=== PATIENT | male | born 1980 | race American Indian/Alaskan Native ===

== ENCOUNTER 2017-11-08 06:13 | Day surgery (SDC) | payer MEDICARE, MEDICAID ==
[2017-11-08 07:48] VITALS: O2SAT 100
[2017-11-08] MEDS ORDERED: Lactated Ringer's 1,000 ML IV ONE ×2 (09:30)
--- NOTE | 2017-11-08 09:30 | CP.SDSHP ---
Same Day Surgery H & P - History Proposed Procedure: EGD/PEG Pre-Op Diagnosis: PEG MALFUNCTION - Previous Medical/Surgical History Pulmonary: Emphysema/COPD Endocrine/Metabolic: Diabetes Neuro: Seizure Disorder, Confusion, Other Misc: Other - Allergies Allergies: Allergies No Known Allergies Allergy (Verified 11/07/17 07:20) - Physical Exam General Appearance: SEE NOTES Vital Signs: Vital Signs 11/08/17 06:30 Temperature 97.3 F L Pulse Rate 59 L Respiratory 19 Rate Blood Pressure 96/60 L O2 Sat by Pulse 100 Oximetry Mental Status: Confused Neuro: Other Heart: Other Lungs: Other GI: Other - {Optional Preform as Required} Breast: WNL Abdomen: Other Rectal: Other Integument: Other : WNL Ortho: WNL ENT: WNL - Impression Pt. Evaluated Today:Candidate for Anesthesia & Procedure: Yes - Date & Time Time: 09:33 Short Stay Discharge - Short Stay Discharge Admitting Diagnosis/Reason for Visit: PEG MALFUNCTION Disposition: HOME/ ROUTINE
[2017-11-08] MEDS ORDERED: Etomidate 20 mg/10ml Inj IV ONE (09:41)
[2017-11-08] MEDS ORDERED: Bacitracin 500 Units/gm Oint Foilpak UD ONE (09:47)
[2017-11-08] MEDS ORDERED: Lactated Ringer's 500 ML IV SCH (10:00)
[2017-11-08 11:04] VITALS: TEMP 97.4
[2017-11-08 11:10] VITALS: BP 106/70; PULSE 56; RESP 11
== END 2017-11-08 10:40 | disposition home or self-care (01) ==
LOC: C.ENDO 06:13
PROVIDERS: ATTEND Specialist
DX: K94.23 Gastrostomy malfunction (principal); R13.19 Other dysphagia; K21.0 Gastro-esophageal reflux disease with esophagitis; K44.9 Diaphragmatic hernia without obstruction or gangrene; G80.9 Cerebral palsy, unspecified; G40.909 Epilepsy, unspecified, not intractable, without status epilepticus
CPT/HCPCS: 43246; 82948; 88300; J7120

== ENCOUNTER 2018-01-24 06:43 | Day surgery (SDC) | payer MEDICARE, MEDICAID ==
[2018-01-24] MEDS ORDERED: Propofol 10 mg/ml Inj (20 ML) ONE (08:34)
--- NOTE | 2018-01-24 08:36 | CP.SDSHP ---
Same Day Surgery H & P - History Proposed Procedure: egd/ peg placement Pre-Op Diagnosis: SEE NOTES - Previous Medical/Surgical History Pulmonary: Asthma Neuro: Seizure Disorder, Paresis, Other Misc: Other Pain: 2.Mild Pain - Allergies Allergies: Allergies No Known Allergies Allergy (Verified 01/24/18 06:58) - Physical Exam General Appearance: PARAPLAGIA Vital Signs: Vital Signs 01/24/18 07:46 Temperature 97.4 F L Pulse Rate 79 Respiratory 19 Rate Blood Pressure 93/58 L O2 Sat by Pulse 97 Oximetry Neuro: Other Heart: Other Lungs: WNL GI: Other - {Optional Preform as Required} Breast: WNL Abdomen: Other Rectal: Other Integument: WNL : Other Ortho: WNL ENT: Other - Impression Pt. Evaluated Today:Candidate for Anesthesia & Procedure: Yes - Date & Time Time: 08:36 Short Stay Discharge - Short Stay Discharge Admitting Diagnosis/Reason for Visit: DYSPEPSIA Disposition: HOME/ ROUTINE
[2018-01-24] MEDS ORDERED: Lactated Ringer's 1,000 ML IV ONE (08:40)
[2018-01-24] MEDS ORDERED: metroNIDAZOLE IV 500 mg/100 ml 500 MG/100 ML BAG IVPB STA (08:48)
[2018-01-24] MEDS ORDERED: Bacitracin 500 Units/gm Oint Foilpak UD ONE (08:50)
[2018-01-24 14:31] VITALS: RESP 14; O2SAT 100
[2018-01-24 14:42] VITALS: BP 96/55; PULSE 55; TEMP 97.8
== END 2018-01-24 10:00 | disposition home or self-care (01) ==
LOC: C.ENDO 06:43
PROVIDERS: ATTEND Specialist
DX: K94.23 Gastrostomy malfunction (principal); G40.909 Epilepsy, unspecified, not intractable, without status epilepticus; J45.909 Unspecified asthma, uncomplicated; R13.10 Dysphagia, unspecified; G82.20 Paraplegia, unspecified
CPT/HCPCS: 43246; 82948; 88300; J2704; J7120

== ENCOUNTER 2018-02-28 12:51 | Emergency (ER) | payer MEDICARE, MEDICAID ==
[2018-02-28 13:11] VITALS: PULSE 54; TEMP 98; O2SAT 100
--- NOTE | 2018-02-28 14:20 | C.PDOC ---
History Of Present Illness 37 y/o male brought to ED from [facility] via EMS sent by Dr. Ocampo for peg tube malfunction as per group home papers. Patient is able to move eyes but is non verbal. HPI limited secondary to patient's condition. Time Seen by Provider: 02/28/18 13:23 Chief Complaint (Nursing): Medical Clearance History Per: EMS, Other (group home) History/Exam Limitations: clinical condition Onset/Duration Of Symptoms: Days Current Symptoms Are (Timing): Still Present Past Medical History Reviewed: Historical Data, Nursing Documentation, Vital Signs Vital Signs: Last Vital Signs Temp 98 F 02/28/18 15:39 Pulse 54 L 02/28/18 15:39 Resp 12 02/28/18 15:39 BP 106/69 02/28/18 15:39 Pulse Ox 100 02/28/18 16:39 - Medical History PMH: Depression (PER CHART MOOD DISORDER DUE TO DX/CONDITION), Seizures Surgical History: Endoscopy Family History: States: No Known Family Hx - Social History Hx Alcohol Use: No Hx Substance Use: No Review Of Systems Review Of Systems: ROS cannot be obtained secondary to pt's inabilty to answer questions. Physical Exam - Physical Exam Appears: Non-toxic, Chronically Ill Skin: Warm, Dry, No Rash Head: Atraumatic, Normacephalic Oral Mucosa: Moist Chest: Symmetrical Cardiovascular: Rhythm Regular Respiratory: Normal Breath Sounds Gastrointestinal/Abdominal: Soft, No Tenderness, Other (peg tube to LUQ intact) Extremity: No Pedal Edema, Other (both upper and lower extremities contracted) ED Course And Treatment ECG: Interpreted By Me, Viewed By Me ECG Rhythm: Sinus Bradycardia Rate From EC (BPM) O2 Sat by Pulse Oximetry: 100 (RA) Pulse Ox Interpretation: Normal Progress Note: GI evaluated patient at bedside and replaced Peg tube without difficulty. Pt discharged to group home. Disposition - Disposition Disposition: TRANSF TO SNF Disposition Time: 16:38 Condition: STABLE Instructions: Percutaneous Endoscopic Gastrostomy (DC) Forms: [facility] (Wol[place]) - Clinical Impression Clinical Impression: PEG tube malfunction - PA / WEB DATABASE DEVELOPER / Resident Statement MD/DO has reviewed & agrees with the documentation as recorded. - Scribe Statement The provider has reviewed the documentation as recorded by the Radhaibalthea Lea All medical record entries made by the Scribe were at my direction and personally dictated by me. I have reviewed the chart and agree that the record accurately reflects my personal performance of the history, physical exam, medical decision making, and the department course for this patient. I have also personally directed, reviewed, and agree with the discharge instructions and disposition.
[2018-02-28] MEDS ORDERED: Bacitracin 500 Units/gm Oint Foilpak UD ONE (15:00)
--- NOTE | 2018-02-28 15:18 | PCM.PROC ---
Procedures Attestation:: I certify that I have explained the specified Operation(s) or Procedure(s), risks, benefits and reasonable alternatives to the Patient and/or other person responsible. The opportunity was given to ask questions and all questions answered - Feeding Tube Replacement Type of Tube: gastrostomy Insertion Site Prior to Procedure: clean Tube Used for Reinsertion: other [place] Tube Size (F): 20 Balloon Size (mis): 5 Verification of Placement: other Tube Secured by: tape/dressing Patient Tolerated Procedure: well Additional comments: PROCEDURE TYPE: PEG replacement. INDICATION: Nonfunctioning PEG tube. TOTAL PROCEDURE TIME: 10 minutes. COMPLICATIONS: None. PROCEDURE: Patient placed in the supine position. PEG site without signs of induration, bleeding, or exudate. Prior PEG tube removed without complication. 20French Replacement PEG tube inserted into PEG tract without complication. Balloon inflated to 5cc and tube and positioned with appropriate tension to stomach wall. 25cc of sterile water for flush irrigation administered with appropriate flush return confirming correct position. Bumper placed at 2cm with gauze dressing and bacitran at insertion site. The patient tolerated the procedure well without complications. PEG tube functioning to proceed with nutritional support and medication administration.
[2018-02-28 15:39] VITALS: BP 106/69; RESP 12
--- NOTE | 2018-03-01 16:50 | CARD ---
APPROVED REPORT Date of service: 02/28/2018 EKG Measurement Heart [id number] <Conclusion> Sinus bradycardia Otherwise normal ECG
== END 2018-02-28 17:01 ==
LOC: C.ER 12:51
DX: K94.23 Gastrostomy malfunction (principal)

== ENCOUNTER 2018-04-18 14:00 | Inpatient (IN) | payer MEDICARE, MEDICAID ==
[2018-04-18] MEDS ORDERED: Sodium Chloride 0.9% 1,000 ML IV ONE ×2 (14:30→16:39)
--- NOTE | 2018-04-18 14:51 | C.PDOC ---
History Of Present Illness Patient sent to ED from GI office for PEG tube change. Patient has PMhx of respiratory failure, seizure disorder, MS, DM II, aphasia, dysphagia, obstructive uropathy. He is nonverbal, history is limited. Time Seen by Provider: 04/18/18 14:10 Chief Complaint (Nursing): GI Problem History Per: Other ([facility] records ) History/Exam Limitations: clinical condition Onset/Duration Of Symptoms: Unknown Severity: Moderate Past Medical History Reviewed: Historical Data, Nursing Documentation, Vital Signs Vital Signs: Last Vital Signs Temp 102.4 F H 04/18/18 14:04 Pulse 131 H 04/18/18 14:04 Resp 19 04/18/18 14:04 BP 125/86 04/18/18 14:04 Pulse Ox 99 04/18/18 14:04 - Medical History PMH: Depression (PER CHART MOOD DISORDER DUE TO DX/CONDITION), Diabetes, Seizures Denies: Chronic Kidney Disease Surgical History: Endoscopy Other Surgeries: PEG Family History: States: Unknown Family Hx - Social History Hx Alcohol Use: No Hx Substance Use: No Review Of Systems Review Of Systems: ROS cannot be obtained secondary to pt's inabilty to answer questions. Physical Exam - Physical Exam Appears: Chronically Ill, Other (tachycpnEic, warm to touch ) Eye(s): bilateral: Normal Inspection Oral Mucosa: Dry Tongue: Fissured Cardiovascular: Rhythm Regular (tachycardic ) Respiratory: Normal Breath Sounds, No Rales, No Rhonchi, No Wheezing, Other (tachypneic ) Gastrointestinal/Abdominal: Normal Exam, Bowel Sounds, Soft, No Tenderness, Other (PEG tube) Male Genital: Other (hypospadius entire length of penis) Extremity: Other (contracted upper and lower extremities B/L) Pulses: Left Dorsalis Pedis: Normal, Right Dorsalis Pedis: Normal Neurological/Psych: Other (awake, nonverbal, lethargic appearing ) ED Course And Treatment - Laboratory Results Result Diagrams: 04/18/18 15:09 04/18/18 15:09 O2 Sat by Pulse Oximetry: 99 Progress Note: Left upper chest portacath present, however nurse unable to draw blood from it. Patient has contracted B/L upper and lower extremities. 20 Gauge IV inserted into left lower leg by me, patient tolerated well. Blood work, UA, CXR, EKG ordered and reviewed. Tylenol TN given, as well as IV NS bolus x2. Broad spectrum antibiotics given. Disposition - Disposition Forms: [employer] ([place])
[2018-04-18 15:12] LABS: BASO # 0.1 K/uL (0.0-0.2); BASO % 0.3 % (0.0-2.0); EOS # 0.1 K/uL (0.0-0.7); EOS % 0.7 % (0.0-4.0); HEMOGLOBIN 13.9 g/dL (12.0-18.0); LYMPH # 1.2 K/uL (1.0-4.3); LYMPH % 5.9 % (20.0-40.0); MEAN CELL VOLUME 80.6 fL (80.0-94.0); MEAN CORPUSCULAR HEMOGLOBIN 26.6 pg (27.0-31.0); MEAN PLATELET VOLUME 11.1 fL (7.2-11.7); MONO # 1.4 K/uL (0.0-0.8); MONO % 7.2 % (0.0-10.0); NEUT # 17.1 K/uL (1.8-7.0); NEUT % 85.9 % (50.0-75.0); PLATELET COUNT 198 K/uL (130-400); WHITE BLOOD COUNT 19.9 K/uL (4.8-10.8)
[2018-04-18 15:20] LABS: VENOUS BLOOD GAS BASE EXCESS 4.8 mmol/L (0.0-2.0); VENOUS BLOOD GAS PCO2 48 mmHg (40-60); VENOUS BLOOD GAS PO2 53 mm/Hg (30-55); VENOUS BLOOD PH 7.41 (7.32-7.43)
[2018-04-18 15:32] LABS: ALBUMIN 4.4 g/dL (3.5-5.0); ALT/SGPT 32 U/L (21-72); AST/SGOT 24 U/L (17-59); BLOOD UREA NITROGEN 29 mg/dL (9-20); CALCIUM 9.5 mg/dl (8.6-10.4); GFR NON-AFRICAN AMERICAN > 60
[2018-04-18 15:35] LABS: EOSINOPHIL 1 % (0-4); LYMPHOCYTE 3 % (20-40); MONOCYTE 7 % (0-10); NEUTROPHIL 89 % (50-75); TOTAL CELLS COUNTED 100
[2018-04-18 15:37] LABS: PLATELET ESTIMATE NORMAL (NORMAL)
[2018-04-18 15:57] LABS: SQUAMOUS EPITHIAL < 1 /hpf (0-5); URINE BACTERIA FEW (<OCC); URINE BILIRUBIN NEGATIVE (NEGATIVE); URINE BLOOD 1+ (NEGATIVE); URINE CLARITY Hazy (Clear); URINE COLOR Yellow (YELLOW); URINE GLUCOSE (UA) NORMAL (Normal); URINE LEUKOCYTE ESTERASE 3+ Leu/uL (Negative); URINE PROTEIN 2+ mg/dL (NEGATIVE)
[2018-04-18] MEDS ORDERED: Moxifloxacin IV 400mg/250ml NS 400 MG/250 ML BAG IV STA (15:59)
[2018-04-18] MEDS ORDERED: Vancomycin 1 GM 1 GM/250 ML BAG IV STA (15:59)
[2018-04-18] MEDS ORDERED: Cefepime 1 GM in Sodium Chloride 0.9% 50 ML IVPB ONE (15:59)
--- NOTE | 2018-04-18 16:02 | RAD ---
HISTORY: FEVER COMPARISON: No prior. TECHNIQUE: Chest, one view. FINDINGS: Examination limited by habitus, hypoinflation, and patient obliquity. Left-sided MediPort extends the cavoatrial junction. LUNGS: Central vascular congestion. Please note that chest x-ray has limited sensitivity for the detection of pulmonary masses. PLEURA: No significant pleural effusion identified. No definite pneumothorax . CARDIOVASCULAR: Heart size appears top normal, partially obscured. No significant atherosclerotic calcification present. OSSEOUS STRUCTURES: Degenerative changes. VISUALIZED UPPER ABDOMEN: Unremarkable. OTHER FINDINGS: None. IMPRESSION: Limited study. Left-sided MediPort extends to the cavoatrial junction. Central vascular congestion.
[2018-04-18] MEDS ORDERED: Sodium Chloride 0.9% 2,000 ML ONE (16:43)
[2018-04-18] MEDS ORDERED: Albuterol-Ipratrop 3 mg / 0.5 (3 ml) UD IH PRN (17:11)
--- NOTE | 2018-04-18 17:12 | CP.PCM.HP ---
<Isabelle Iverson - Last Filed: 04/18/18 17:15> History of Present Illness - History of Present Illness History of Present Illness: Isabelle Iverson PGY1 H&P for Dr. Angeles Pt is a 37yo M with PMH respiratory failure, seizure disorder, MS, DM2, aphasia, dysphagia, obstructive uropothy who is aphasic, brought from [facility] to ED for PEG tube replacement. According to [facility] records, pt was examined by Dr. Borjas who found foul smelling liquid draining from G tube site. There, pt was given handley to temporarily replace the tube. Dr. Borjas recommended ED visit for PEG tube replacement. Pt had last PEG tube changed on 02/28/[address] De La Fuente. Pt was examined at bedside. He was sleeping, contracted, and unable to give history at that time. ROS was not obtained. In the ED: Vitals were stable. CBC showed WBC count of 19.9. UA showed +3 leukocyte esterase, +nitrates, 231 WBC, few bacteria. Pt was started on Cefepime, Moxi, and Vanco. SxH: endoscopy FamH: not able to obtain SocH: no reported tobacco, etoh, recreational drug use Allergies: NKDA Meds: keppra 100 BID, omeprazole 2 daily, ativan 0.5 q12h PRN, vimpat 200 q12h, fentanyl 1 TD q2d, eliquis 5 BID, duonebs 1 IH q6h PRN, tylenol PMD: Dr. Borjas Present on Admission - Present on Admission Any Indicators Present on Admission: No Review of Systems - Review of Systems Review of Systems: not obtainable at this time Past Patient History - Past Medical History & Family History Past Medical History?: Yes - Past Social History Smoking Status: Unknown If Ever Smoked - CARDIAC Hx Cardiac Disorders: No - PULMONARY Hx Respiratory Disorders: Yes Other/Comment: HX RESPIRATORY FAILURE HX TRACH - NEUROLOGICAL Hx Seizures: Yes - HEENT Hx HEENT Problems: No - RENAL Hx Chronic Kidney Disease: No - ENDOCRINE/METABOLIC Hx Endocrine Disorders: Yes Hx Diabetes Mellitus Type 2: Yes - HEMATOLOGICAL/ONCOLOGICAL Hx Blood Disorders: No - INTEGUMENTARY Hx Dermatological Problems: Yes Other/Comment: PRESSURE ULCERS - MUSCULOSKELETAL/RHEUMATOLOGICAL Hx Musculoskeletal Disorders: Yes Other/Comment: CONTRACTED - GASTROINTESTINAL Hx Gastrointestinal Disorders: Yes Hx Gastroesophageal Reflux: Yes Other/Comment: DYSPHAGIA PEG - GENITOURINARY/GYNECOLOGICAL Hx Genitourinary Disorders: No - PSYCHIATRIC Hx Depression: Yes (PER CHART MOOD DISORDER DUE TO DX/CONDITION) Hx Substance Use: No - SURGICAL HISTORY Hx Surgeries: Yes Other/Comment: PEG TUBE INSERTION, TRACHEOSTOMY - ANESTHESIA Hx Anesthesia: Yes Hx Anesthesia Reactions: No Hx Malignant Hyperthermia: No Meds Allergies/Adverse Reactions: Allergies Allergy/AdvReac Type Severity Reaction Status Date / Time No Known Allergies Allergy Verified 01/24/18 06:58 Physical Exam - Constitutional Appears: Chronically Ill Additional comments: contracted, sleeping - Head Exam Head Exam: ATRAUMATIC, NORMOCEPHALIC - ENT Exam ENT Exam: Mucous Membranes Moist, Normal Exam - Neck Exam Neck exam: Positive for: Normal Inspection - Respiratory Exam Respiratory Exam: Clear to Auscultation Bilateral, NORMAL BREATHING PATTERN. absent: Rales, Rhonchi, Wheezes, Respiratory Distress - Cardiovascular Exam Cardiovascular Exam: REGULAR RHYTHM, +S1, +S2. absent: Gallop, Rubs, Systolic Murmur - GI/Abdominal Exam GI & Abdominal Exam: Soft. absent: Distended, Firm Additional comments: unable to assess tenderness GT site with handley clean, dry, intact - Exam Additional comments: hypophysis from medial to distal penis - Extremities Exam Extremities exam: Negative for: pedal edema Additional comments: pressure ulcer on R heel, no bleeding or obvious drainage pressure ulcer with dressing on L heel, clean, dry, intact - Neurological Exam Additional comments: aphasic, asleep Results - Vital Signs Recent Vital Signs: Last Vital Signs Temp 99.0 F 04/18/18 16:52 Pulse 91 H 04/18/18 16:52 Resp 18 04/18/18 16:52 BP 95/55 L 04/18/18 16:52 Pulse Ox 100 04/18/18 16:52 - Labs Result Diagrams: 04/18/18 15:09 04/18/18 15:09 Labs: Laboratory Results - last 24 hr 04/18/18 04/18/18 04/18/18 15:09 15:09 15:15 WBC 19.9 H RBC 5.20 Hgb 13.9 Hct 41.9 MCV 80.6 MCH 26.6 L MCHC 33.0 RDW 15.0 H Plt Count 198 MPV 11.1 Neut % (Auto) 85.9 H Lymph % (Auto) 5.9 L Ponce % (Auto) 7.2 Eos % (Auto) 0.7 Baso % (Auto) 0.3 Neut # (Auto) 17.1 H Lymph # (Auto) 1.2 Ponce # (Auto) 1.4 H Eos # (Auto) 0.1 Baso # (Auto) 0.1 Neutrophils % (Manual) 89 H Lymphocytes % (Manual) 3 L Monocytes % (Manual) 7 Eosinophils % (Manual) 1 Platelet Estimate Normal RBC Morphology Normal pO2 53 VBG pH 7.41 VBG pCO2 48 VBG HCO3 28.4 VBG Total CO2 31.9 H VBG O2 Sat (Calc) 92.5 H VBG Base Excess 4.8 H VBG Potassium 3.5 L Glucose 116 H Lactate 0.9 FiO2 21.0 Sodium 145 143.0 Potassium 4.0 Chloride 103 108.0 H Carbon Dioxide 29 Anion Gap 17 BUN 29 H Creatinine 0.6 L Est GFR ( Amer) > 60 Est GFR (Non-Af Amer) > 60 Random Glucose 126 H Calcium 9.5 Total Bilirubin 0.7 AST 24 ALT 32 Alkaline Phosphatase 152 H Total Protein 8.6 H Albumin 4.4 Globulin 4.2 H Albumin/Globulin Ratio 1.0 Venous Blood Potassium 3.5 L Urine Color Urine Clarity Urine pH Ur Specific [place] Urine Protein Urine Glucose (UA) Urine Ketones Urine Blood Urine Nitrate Urine Bilirubin Urine Urobilinogen Ur Leukocyte Esterase Urine WBC (Auto) Urine RBC (Auto) Ur Squamous Epith Cells Urine Bacteria Urine Yeast (Budding) Influenza Typ A,B (EIA) 04/18/18 04/18/18 15:27 15:45 WBC RBC Hgb Hct MCV MCH MCHC RDW Plt Count MPV Neut % (Auto) Lymph % (Auto) Ponce % (Auto) Eos % (Auto) Baso % (Auto) Neut # (Auto) Lymph # (Auto) Ponce # (Auto) Eos # (Auto) Baso # (Auto) Neutrophils % (Manual) Lymphocytes % (Manual) Monocytes % (Manual) Eosinophils % (Manual) Platelet Estimate RBC Morphology pO2 VBG pH VBG pCO2 VBG HCO3 VBG Total CO2 VBG O2 Sat (Calc) VBG Base Excess VBG Potassium Glucose Lactate FiO2 Sodium Potassium Chloride Carbon Dioxide Anion Gap BUN Creatinine Est GFR ( Amer) Est GFR (Non-Af Amer) Random Glucose Calcium Total Bilirubin AST ALT Alkaline Phosphatase Total Protein Albumin Globulin Albumin/Globulin Ratio Venous Blood Potassium Urine Color Yellow Urine Clarity Hazy Urine pH 7.0 Ur Specific [place] 1.021 Urine Protein 2+ H Urine Glucose (UA) Normal Urine Ketones Negative Urine Blood 1+ H Urine Nitrate Positive H Urine Bilirubin Negative Urine Urobilinogen 4.0 Ur Leukocyte Esterase 3+ H Urine WBC (Auto) 231 H Urine RBC (Auto) 29 H Ur Squamous Epith Cells < 1 Urine Bacteria Few H Urine Yeast (Budding) Few H Influenza Typ A,B (EIA) Negative for flu a/b Assessment & Plan - Assessment and Plan (Free Text) Assessment: Pt is a 37yo M with PMH respiratory failure, seizure disorder, MS, DM2, aphasia, dysphagia, obstructive uropothy who is aphasic, brought from [facility] to ED for PEG tube replacement, admitted for further evaluation and treatment of leukocy tosis and PEG tube replacement. Plan: Leukocytosis/SIRS - pt afebrile - WBC 19.9 - CXR: no active disease - likely secondary to GT site infection vs. pressure ulcer soft tissue infection - UA +3 leukocyte esterase, +nitrates, 231 WBC, few bacteria - received Vanco, moxi, and cefepime in ED - start zosyn 3.375 IV q6h - continue vanco 1g IV daily - tylenol PRN - f/u vanc trough on 4th dose - f/u BCx, UCx - PICC access ordered PEG tube - pt with last PEG tube change 02/28/18 - currently with handley in site - meds IV currently - resume elequis - tube flushed qid - NPO - D5 LR 1000ml @ 100 cc/hr - GI consulted, Dr. De La Fuente - f/u recs for replacement Pressure Ulcers - stage IV pressure ulcer on LLE, RLE - start zosyn 3.375 IV q6h - continue vanco 1g IV daily - turn and reposition q2h - wound care consulted Seizure Disorder - start home keppra - start home vimpat DM2 - D5 LR 1000ml @ 100cc/hr - hypoglycemia protocol H/o respiratory distress - duonebs q6h PRN MS/dysphagia/aphasia - pt has poor quality of life as he is bedbound, non expressive - as per senior care documentation pt is full code - will discuss goals of care with family - Palliative care consulted - f/u recs PPx: GI - protonix 40 IV daily DVT - on eliquis, SCDs contraindicated due to LE wounds NPO - meds to be administered IV/through Gtube Pt seen with and case reviewed with Dr. Angeles <Candy Angeles - Last Filed: 04/18/18 18:16> Results - Vital Signs Recent Vital Signs: Last Vital Signs Temp 99.0 F 04/18/18 16:52 Pulse 96 H 04/18/18 17:10 Resp 14 04/18/18 17:10 BP 101/60 04/18/18 17:10 Pulse Ox 100 04/18/18 17:10 - Labs Result Diagrams: 04/18/18 15:09 04/18/18 15:09 Labs: Laboratory Results - last 24 hr 04/18/18 04/18/18 04/18/18 15:09 15:09 15:15 WBC 19.9 H RBC 5.20 Hgb 13.9 Hct 41.9 MCV 80.6 MCH 26.6 L MCHC 33.0 RDW 15.0 H Plt Count 198 MPV 11.1 Neut % (Auto) 85.9 H Lymph % (Auto) 5.9 L Ponce % (Auto) 7.2 Eos % (Auto) 0.7 Baso % (Auto) 0.3 Neut # (Auto) 17.1 H Lymph # (Auto) 1.2 Ponce # (Auto) 1.4 H Eos # (Auto) 0.1 Baso # (Auto) 0.1 Neutrophils % (Manual) 89 H Lymphocytes % (Manual) 3 L Monocytes % (Manual) 7 Eosinophils % (Manual) 1 Platelet Estimate Normal RBC Morphology Normal pO2 53 VBG pH 7.41 VBG pCO2 48 VBG HCO3 28.4 VBG Total CO2 31.9 H VBG O2 Sat (Calc) 92.5 H VBG Base Excess 4.8 H VBG Potassium 3.5 L Glucose 116 H Lactate 0.9 FiO2 21.0 Sodium 145 143.0 Potassium 4.0 Chloride 103 108.0 H Carbon Dioxide 29 Anion Gap 17 BUN 29 H Creatinine 0.6 L Est GFR ( Amer) > 60 Est GFR (Non-Af Amer) > 60 Random Glucose 126 H Calcium 9.5 Total Bilirubin 0.7 AST 24 ALT 32 Alkaline Phosphatase 152 H Total Protein 8.6 H Albumin 4.4 Globulin 4.2 H Albumin/Globulin Ratio 1.0 Venous Blood Potassium 3.5 L Urine Color Urine Clarity Urine pH Ur Specific [place] Urine Protein Urine Glucose (UA) Urine Ketones Urine Blood Urine Nitrate Urine Bilirubin Urine Urobilinogen Ur Leukocyte Esterase Urine WBC (Auto) Urine RBC (Auto) Ur Squamous Epith Cells Urine Bacteria Urine Yeast (Budding) Influenza Typ A,B (EIA) 04/18/18 04/18/18 15:27 15:45 WBC RBC Hgb Hct MCV MCH MCHC RDW Plt Count MPV Neut % (Auto) Lymph % (Auto) Ponce % (Auto) Eos % (Auto) Baso % (Auto) Neut # (Auto) Lymph # (Auto) Ponce # (Auto) Eos # (Auto) Baso # (Auto) Neutrophils % (Manual) Lymphocytes % (Manual) Monocytes % (Manual) Eosinophils % (Manual) Platelet Estimate RBC Morphology pO2 VBG pH VBG pCO2 VBG HCO3 VBG Total CO2 VBG O2 Sat (Calc) VBG Base Excess VBG Potassium Glucose Lactate FiO2 Sodium Potassium Chloride Carbon Dioxide Anion Gap BUN Creatinine Est GFR ( Amer) Est GFR (Non-Af Amer) Random Glucose Calcium Total Bilirubin AST ALT Alkaline Phosphatase Total Protein Albumin Globulin Albumin/Globulin Ratio Venous Blood Potassium Urine Color Yellow Urine Clarity Hazy Urine pH 7.0 Ur Specific [place] 1.021 Urine Protein 2+ H Urine Glucose (UA) Normal Urine Ketones Negative Urine Blood 1+ H Urine Nitrate Positive H Urine Bilirubin Negative Urine Urobilinogen 4.0 Ur Leukocyte Esterase 3+ H Urine WBC (Auto) 231 H Urine RBC (Auto) 29 H Ur Squamous Epith Cells < 1 Urine Bacteria Few H Urine Yeast (Budding) Few H Influenza Typ A,B (EIA) Negative for flu a/b
[2018-04-18] MEDS ORDERED: Home Med 1 UNIT (Fentanyl [Fentanyl] 1 EACH) TD SCH (17:15)
[2018-04-18] MEDS ORDERED: Lactated Ringer's 1,000 ML IV SCH (17:15)
[2018-04-18] MEDS ORDERED: Dextrose 50% SYRINGE Inj (50 ml) IV PRN (17:46)
[2018-04-18] MEDS ORDERED: levETIRAcetam 100 mg/ml (5ml) Oral Syringe PO SCH (18:00)
[2018-04-18] MEDS ORDERED: Glucagon Recombinant 1 mg Inj IM PRN (18:27)
[2018-04-18] MEDS: Dextrose 5%/Lactated Ringer's 1,000 ML IV SCH (18:50)
[2018-04-18] MEDS: Piperacill/Tazo 3.375gm in Dex 3.375 GM/50 ML BAG IVPB SCH (20:00)
[2018-04-18] MEDS ORDERED: Lacosamide 100 MG Tab PO SCH (22:00)
[2018-04-19] MEDS: Piperacill/Tazo 3.375gm in Dex 3.375 GM/50 ML BAG IVPB SCH ×4 (01:30→20:00)
[2018-04-19] MEDS: Dextrose 5%/Lactated Ringer's 1,000 ML IV SCH ×2 (03:45→06:09)
[2018-04-19] MEDS: Vancomycin 1 gm/NS 200 ml 1 GM/200 ML BAG IVPB SCH (04:10)
[2018-04-19 06:49] LABS: BASO # 0.1 K/uL (0.0-0.2); BASO % 0.5 % (0.0-2.0); EOS # 0.5 K/uL (0.0-0.7); EOS % 2.9 % (0.0-4.0); HEMOGLOBIN 12.2 g/dL (12.0-18.0); LYMPH % 5.7 % (20.0-40.0); MEAN CELL VOLUME 81.3 fL (80.0-94.0); MEAN CORPUSCULAR HEMOGLOBIN 26.8 pg (27.0-31.0); MEAN CORPUSCULAR HGB CONC 32.9 g/dL (33.0-37.0); MONO % 5.9 % (0.0-10.0); NEUT # 15.1 K/uL (1.8-7.0); NRBC % 0.1 % (0.0-2.0); PLATELET COUNT 155 K/uL (130-400); RBC 4.56 Mil/uL (4.40-5.90); WHITE BLOOD COUNT 17.8 K/uL (4.8-10.8)
[2018-04-19 07:10] LABS: ALB/GLOB RATIO 1.1 (1.0-2.1); ALBUMIN 3.8 g/dL (3.5-5.0); ALT/SGPT 27 U/L (21-72); AST/SGOT 16 U/L (17-59); BLOOD UREA NITROGEN 20 mg/dL (9-20); CALCIUM 9.1 mg/dl (8.6-10.4); GFR NON-AFRICAN AMERICAN > 60
[2018-04-19 08:41] LABS: BASOPHIL 1 % (0-2); EOSINOPHIL 3 % (0-4); LYMPHOCYTE 4 % (20-40); MONOCYTE 5 % (0-10); NEUTROPHIL 87 % (50-75); PLATELET ESTIMATE NORMAL (NORMAL); TOTAL CELLS COUNTED 100
--- NOTE | 2018-04-19 09:12 | CP.PCM.PN ---
<Renan Perez - Last Filed: 04/19/18 18:03> Subjective - Date & Time of Evaluation Date of Evaluation: 04/19/18 Time of Evaluation: 09:12 - Subjective Subjective: Progress Note for Hospitalist service Patient seen and examined at bedside. Patient is unable to provide history, and is lying in bed with contracted upper extremities. Patient occasionally groans, eyes are open. Family not present at bedside. Objective - Vital Signs/Intake and Output Vital Signs (last 24 hours): Temp Pulse Resp BP Pulse Ox 99.3 F 95 H 18 102/72 100 04/19/18 07:00 04/19/18 08:32 04/19/18 07:00 04/19/18 07:00 04/19/18 07:00 Intake and Output: 04/19/18 04/19/18 06:59 18:59 Intake Total 800 Output Total 450 Balance 350 - Medications Medications: Current Medications Acetaminophen (Tylenol 325mg Tab) 325 mg GT PRN [facility] Albuterol/Ipratropium (Duoneb 3 Mg/0.5 Mg (3 Ml) Ud) 3 ml IH RQ6 PRN PRN Reason: Shortness of Breath Apixaban (Eliquis) 5 mg GT BID [facility] Dextrose (Dextrose 50% Inj) 0 ml IV STAT PRN; Protocol PRN Reason: Hypoglycemia Protocol Dextrose (Glutose 15) 0 gm PO ONCE PRN; Protocol PRN Reason: Hypoglycemia Protocol Glucagon (Glucagen Diagnostic Kit) 0 mg IM STAT PRN; Protocol PRN Reason: Hypoglycemia Protocol Home Med (Fentanyl [Fentanyl]) 1 each TD Q2D [facility] Piperacillin Sod/Tazobactam Sod (Zosyn 3.375 Gm Iv Premix) 3.375 gm in 50 mls @ 100 mls/hr IVPB Q6H [facility]; Protocol Last Admin: 04/19/18 06:05 Dose: 100 mls/hr Vancomycin/Sodium Chloride (Vancomycin 1 Gm/Ns 200 Ml) 1 gm in 200 mls @ 133.333 mls/hr IVPB Q24H [facility]; Protocol Last Admin: 04/19/18 04:10 Dose: 133.333 mls/hr Dextrose/Lactated Ringer's (Dextrose 5%/Lactated Ringer's) 1,000 mls @ 100 mls/hr IV .Q10H [facility] Last Admin: 04/19/18 06:09 Dose: 100 mls/hr Dextrose (Dextrose 5% In Water 1000 Ml) 1,000 mls @ 0 mls/hr IV .Q0M PRN; Protocol PRN Reason: Hypoglycemia Protocol Influenza Virus Vaccine (Fluzone Quad [id number]) 60 mcg IM .ONCE ONE Stop: 04/20/18 10:01 Lacosamide (Vimpat) 200 mg PO Q12 [facility] Levetiracetam (Keppra) 1,000 mg PO BID [facility] Lorazepam (Ativan) 0.5 mg GT Q12 PRN PRN Reason: Seizure activity Pantoprazole Sodium (Protonix Inj) 40 mg IVP DAILY [facility] Pneumococcal Polyvalent Vaccine (Pneumovax 23 Vaccine) 0.5 ml IM .ONCE ONE Stop: 04/20/18 10:01 - Labs Labs: 04/19/18 06:41 04/19/18 06:41 - Constitutional Appears: Other (Eyes are open, groans intermittently, contracted upper extremities. ) - Head Exam Head Exam: ATRAUMATIC, NORMOCEPHALIC - Eye Exam Eye Exam: EOMI, PERRL - ENT Exam ENT Exam: Mucous Membranes Moist - Neck Exam Neck Exam: Full ROM - Respiratory Exam Respiratory Exam: Clear to Ausculation Bilateral. absent: Rales, Rhonchi, Wheezes, Stridor Additional comments: (+) palpable port on left chest - Cardiovascular Exam Cardiovascular Exam: REGULAR RHYTHM, +S1, +S2. absent: Gallop, Rubs, Murmur - GI/Abdominal Exam GI & Abdominal Exam: Soft, Normal Bowel Sounds. absent: Distended, Guarding, Rigid, Hernia Additional comments: left lower abdomen: G tube with handley tube in place. no evidence of infection at the site. Unable to assess tenderness, however patient does not wince or groan when abdomen is palpated - Exam Additional comments: Hypospadia handley in place - Extremities Exam Extremities Exam: absent: Calf Tenderness, Pedal Edema Additional comments: Pressure ulcer on right heel pressure ulcer with dressing on left heel - Back Exam Back Exam: absent: CVA tenderness (L), CVA tenderness (R) - Neurological Exam Additional comments: Unable to assess mental status since patient is aphasic, eyes are open, unable to answer questions Assessment and Plan - Assessment and Plan (Free Text) Plan: Assessment and plan Assessment 37 year old male with history of respiratory failure, seizure disorder, MS, Type 2 DM, aphasia, dysphagia, obstructive uropathy who presented from [facility] for peg tube replacement after patient was noted to have foul smelling drainage from site. Admitted for further evaluation and treatment of urinary tract infection with leukocytosis and PEG tube replacement. Plan Leukocytosis/SIRS Likely secondary to Urinary Tract infection Patient remains afebrile currently, was febrile on admission to 102.5 CXR: no active disease Patient received Vancomycin, Moxifloxacin and Cefepime in ED. IV Abx: Vancomycin 1g IV Q24 hours, Zosyn 3.375g IV Q6 Tylenol 650mg Q6 PRN for fevers Follow up blood cultures, urine cultures Urine culture preliminary finding GN rods Blood cultures prelim no growth Follow up vanco trough PEG Tube dysfunction Last Peg tube changed by Dr. De La Fuente on 02/28/18 Currently has handley tube in place. Tube to be flushed QID GI Dr. De La Fuente consulted, help appreciated PEG Tube changed 04/19/18, who recommended placement of abdominal binder, and stated new peg tube okay to be used for tube feeding, medication, free water flushes. Eliquis resumed To remain NPO D5LR 1L @ 100cc/hr IV Glucerna tube feeds resumed Pressure ulcers Stage IV pressure ulcer on LLE, RLE Zosyn 3.375g IV Q6 Day 2 Vancomycin 1g Q24 Day 2 Wound care consulted Turn and reposition every 2 hours Seizure disorder Keppra 1000mg BID Vimpat 200mg Q12 To be given by G tube Seizure precautions Aspiration precautions Type 2 DM D5 LR @ 100cc/hr IV Hypoglycemia protocol History of respiratory distress, currently stable Duonebs Q6 PRN History of MS/dysphagia/aphasia Poor quality of life, remains bedbound, nonexpressive Pallative care Janeth consulted As per note, scheduled to have family meeting today with patient's brother Murali Doss who is POA [phone] Spoke with patient's brother regarding goals of care, who stated that he wants to keep him full code. PPX: GI: Protonix 40mg IV DVT: On Eliquis, SCDs not indicated due to pressure ulcers NPO: medications to be administered through G tube Case discussed with Dr. Bridgette Perez, PGY1 <Candy Angeles - Last Filed: 04/20/18 15:36> Objective - Vital Signs/Intake and Output Vital Signs (last 24 hours): Temp Pulse Resp BP Pulse Ox 99.9 F H 97 H 20 106/73 100 04/20/18 07:10 04/20/18 07:10 04/20/18 07:10 04/20/18 07:10 04/20/18 07:10 Intake and Output: 04/20/18 04/20/18 06:59 18:59 Intake Total 1380 Output Total 800 Balance 580 - Medications Medications: Current Medications Acetaminophen (Tylenol 325mg Tab) 325 mg GT Q6 PRN PRN Reason: Fever >100.4 F Albuterol/Ipratropium (Duoneb 3 Mg/0.5 Mg (3 Ml) Ud) 3 ml IH RQ6 PRN PRN Reason: Shortness of Breath Apixaban (Eliquis) 5 mg GT BID [facility] Last Admin: 04/20/18 10:43 Dose: 5 mg Dextrose (Dextrose 50% Inj) 0 ml IV STAT PRN; Protocol PRN Reason: Hypoglycemia Protocol Dextrose (Glutose 15) 0 gm PO ONCE PRN; Protocol PRN Reason: Hypoglycemia Protocol Fentanyl (Duragesic) 1 patch TD Q72H [facility] Last Admin: 04/19/18 17:20 Dose: 1 patch Glucagon (Glucagen Diagnostic Kit) 0 mg IM STAT PRN; Protocol PRN Reason: Hypoglycemia Protocol Piperacillin Sod/Tazobactam Sod (Zosyn 3.375 Gm Iv Premix) 3.375 gm in 50 mls @ 100 mls/hr IVPB Q6H [facility]; Protocol Last Admin: 04/20/18 12:59 Dose: 100 mls/hr Dextrose (Dextrose 5% In Water 1000 Ml) 1,000 mls @ 0 mls/hr IV .Q0M PRN; Protocol PRN Reason: Hypoglycemia Protocol Insulin Human Regular (Novolin R) 0 unit SC ACHS [facility]; Protocol Lacosamide (Vimpat) 200 mg PO Q12 [facility] Last Admin: 04/20/18 10:43 Dose: 200 mg Lactobacillus Acidophilus (Bacid Acidophilus) 1 cap GT BID [facility] Levetiracetam (Keppra) 1,000 mg GT BID [facility] Last Admin: 04/20/18 10:43 Dose: 1,000 mg Lorazepam (Ativan) 0.5 mg GT Q12 PRN PRN Reason: Seizure activity Pantoprazole Sodium (Protonix Inj) 40 mg IVP DAILY [facility] Last Admin: 04/20/18 10:43 Dose: 40 mg Vitamin A (Vitamin A & D Oint Ud Foilpak) 0.5 ea TOP Q4 [facility] Last Admin: 04/20/18 11:24 Dose: 0.5 ea - Labs Labs: 04/20/18 05:54 04/20/18 05:54 Attending/Attestation - Attestation I have personally seen and examined this patient.: Yes I have fully participated in the care of the patient.: Yes I have reviewed all pertinent clinical information, including history, physical exam and plan: Yes Notes (Text): seen and examined by me. Patient is bed bound nonverbal and contracted limbs. Brought for peg change s/p peg change by gastro enterologist fever and leukocytosis UTI and had wounds continue roalndo and marco antonion. if blood cuture negative stop rolando Spoke to his brother. patient's mother is in the same NH with the pt He wants all treatment including resuscitation.
--- NOTE | 2018-04-19 09:26 | CP.PCM.CON ---
<ChantelljaydonPatrick aldana - Last Filed: 04/19/18 18:14> History of Present Illness - History of Present Illness History of Present Illness: PGY6 GI Fellow Consult Note Patient is a 37yo male with PMHx significant for advanced multiple sclerosis, seizure d/o, diabetes who is nonverbal at baseline who was referred to the ED from our outpatient office yesterday for PEG replacement. The patient has a hist ory of numerous inadvertent PEG dislodgement and presented to the office yesterday from [facility] for evaluation. Upon realizing that recently exchanged PEG (Feb [address] De La Fuente) was no longer present, we asked the patient to present to the ED for evaluation and replacement. On arrival to the ED, the patient was noted to be febrile with TMax 102F and tachycardia. U/A was abnormal and UTI is presumed source of infection for the patient presently. He was started on antibiotics and admitted to the hospital. We are consulted for PEG management. Unable to perform 12 system ROS given clinical condition PMHx: See HPI PSHx: None known FHx: Father - passed from unknown malignancy Social: No tobacco, EtOH or illicit drug use; AR patient Endo: Most recent EGD 12/2017 for PEG replacement Past Patient History - Past Medical History & Family History Past Medical History?: Yes - Past Social History Smoking Status: Unknown If Ever Smoked - CARDIAC Hx Cardiac Disorders: No - PULMONARY Hx Respiratory Disorders: Yes Other/Comment: HX RESPIRATORY FAILURE HX TRACH - NEUROLOGICAL Hx Neurological Disorder: Yes Hx Seizures: Yes - HEENT Hx HEENT Problems: No - RENAL Hx Chronic Kidney Disease: No - ENDOCRINE/METABOLIC Hx Endocrine Disorders: Yes Hx Diabetes Mellitus Type 2: Yes - HEMATOLOGICAL/ONCOLOGICAL Hx Blood Disorders: No - INTEGUMENTARY Hx Dermatological Problems: Yes Other/Comment: PRESSURE ULCERS - MUSCULOSKELETAL/RHEUMATOLOGICAL Hx Musculoskeletal Disorders: Yes Hx Falls: No Other/Comment: CONTRACTED - GASTROINTESTINAL Hx Gastrointestinal Disorders: Yes Hx Gastroesophageal Reflux: Yes Other/Comment: DYSPHAGIA PEG - GENITOURINARY/GYNECOLOGICAL Hx Genitourinary Disorders: No - PSYCHIATRIC Hx Depression: Yes (PER CHART MOOD DISORDER DUE TO DX/CONDITION) Hx Substance Use: No - SURGICAL HISTORY Hx Surgeries: Yes Other/Comment: PEG TUBE INSERTION, TRACHEOSTOMY - ANESTHESIA Hx Anesthesia: Yes Hx Anesthesia Reactions: No Hx Malignant Hyperthermia: No Meds Allergies/Adverse Reactions: Allergies Allergy/AdvReac Type Severity Reaction Status Date / Time No Known Allergies Allergy Verified 01/24/18 06:58 - Medications Medications: Current Medications Acetaminophen (Tylenol 325mg Tab) 325 mg GT PRN [facility] Albuterol/Ipratropium (Duoneb 3 Mg/0.5 Mg (3 Ml) Ud) 3 ml IH RQ6 PRN PRN Reason: Shortness of Breath Apixaban (Eliquis) 5 mg GT BID [facility] Dextrose (Dextrose 50% Inj) 0 ml IV STAT PRN; Protocol PRN Reason: Hypoglycemia Protocol Dextrose (Glutose 15) 0 gm PO ONCE PRN; Protocol PRN Reason: Hypoglycemia Protocol Glucagon (Glucagen Diagnostic Kit) 0 mg IM STAT PRN; Protocol PRN Reason: Hypoglycemia Protocol Home Med (Fentanyl [Fentanyl]) 1 each TD Q2D [facility] Piperacillin Sod/Tazobactam Sod (Zosyn 3.375 Gm Iv Premix) 3.375 gm in 50 mls @ 100 mls/hr IVPB Q6H [facility]; Protocol Last Admin: 04/19/18 06:05 Dose: 100 mls/hr Vancomycin/Sodium Chloride (Vancomycin 1 Gm/Ns 200 Ml) 1 gm in 200 mls @ 133.333 mls/hr IVPB Q24H [facility]; Protocol Last Admin: 04/19/18 04:10 Dose: 133.333 mls/hr Dextrose/Lactated Ringer's (Dextrose 5%/Lactated Ringer's) 1,000 mls @ 100 mls/hr IV .Q10H [facility] Last Admin: 04/19/18 06:09 Dose: 100 mls/hr Dextrose (Dextrose 5% In Water 1000 Ml) 1,000 mls @ 0 mls/hr IV .Q0M PRN; Protocol PRN Reason: Hypoglycemia Protocol Influenza Virus Vaccine (Fluzone Quad [id number]) 60 mcg IM .ONCE ONE Stop: 04/20/18 10:01 Lacosamide (Vimpat) 200 mg PO Q12 [facility] Levetiracetam (Keppra) 1,000 mg PO BID [facility] Lorazepam (Ativan) 0.5 mg GT Q12 PRN PRN Reason: Seizure activity Pantoprazole Sodium (Protonix Inj) 40 mg IVP DAILY [facility] Pneumococcal Polyvalent Vaccine (Pneumovax 23 Vaccine) 0.5 ml IM .ONCE ONE Stop: 10/25/18 10:01 Physical Exam - Constitutional Appears: No Acute Distress Additional comments: nonverbal, contracted - Eye Exam Eye Exam: PERRL - ENT Exam ENT Exam: Mucous Membranes Moist - Respiratory Exam Respiratory Exam: Clear to Auscultation Bilateral. absent: Rales, Rhonchi, Wheezes - Cardiovascular Exam Cardiovascular Exam: RRR, +S1, +S2 - GI/Abdominal Exam GI & Abdominal Exam: Normal Bowel Sounds, Soft. absent: Distended, Firm, Guarding, Organomegaly, Rigid, Tenderness Additional comments: PEG site intact, no drainage noted; handley catheter in tract presently - Extremities Exam Extremities exam: Negative for: pedal edema Additional comments: multiple contractures - Neurological Exam Additional comments: awake, altered - Skin Skin Exam: Dry, Warm Results - Vital Signs Recent Vital Signs: Last Vital Signs Temp 99.3 F 04/19/18 07:00 Pulse 95 H 04/19/18 08:32 Resp 18 04/19/18 07:00 BP 102/72 04/19/18 07:00 Pulse Ox 100 04/19/18 07:00 - Labs Result Diagrams: 04/19/18 06:41 04/19/18 06:41 Labs: Laboratory Results - last 24 hr 04/18/18 04/18/18 04/18/18 15:09 15:09 15:15 WBC 19.9 H RBC 5.20 Hgb 13.9 Hct 41.9 MCV 80.6 MCH 26.6 L MCHC 33.0 RDW 15.0 H Plt Count 198 MPV 11.1 Neut % (Auto) 85.9 H Lymph % (Auto) 5.9 L [place] % (Auto) 7.2 Eos % (Auto) 0.7 Baso % (Auto) 0.3 Neut # (Auto) 17.1 H Lymph # (Auto) 1.2 [place] # (Auto) 1.4 H Eos # (Auto) 0.1 Baso # (Auto) 0.1 Neutrophils % (Manual) 89 H Lymphocytes % (Manual) 3 L Monocytes % (Manual) 7 Eosinophils % (Manual) 1 Basophils % (Manual) Platelet Estimate Normal RBC Morphology Normal pO2 53 VBG pH 7.41 VBG pCO2 48 VBG HCO3 28.4 VBG Total CO2 31.9 H VBG O2 Sat (Calc) 92.5 H VBG Base Excess 4.8 H VBG Potassium 3.5 L Glucose 116 H Lactate 0.9 FiO2 21.0 Sodium 145 143.0 Potassium 4.0 Chloride 103 108.0 H Carbon Dioxide 29 Anion Gap 17 BUN 29 H Creatinine 0.6 L Est GFR ( Amer) > 60 Est GFR (Non-Af Amer) > 60 Random Glucose 126 H Calcium 9.5 Phosphorus Magnesium Total Bilirubin 0.7 AST 24 ALT 32 Alkaline Phosphatase 152 H Total Protein 8.6 H Albumin 4.4 Globulin 4.2 H Albumin/Globulin Ratio 1.0 Venous Blood Potassium 3.5 L Urine Color Urine Clarity Urine pH Ur Specific Meherrin Urine Protein Urine Glucose (UA) Urine Ketones Urine Blood Urine Nitrate Urine Bilirubin Urine Urobilinogen Ur Leukocyte Esterase Urine WBC (Auto) Urine RBC (Auto) Ur Squamous Epith Cells Urine Bacteria Urine Yeast (Budding) Influenza Typ A,B (EIA) 04/18/18 04/18/18 04/19/18 15:27 15:45 06:41 WBC 17.8 H RBC 4.56 Hgb 12.2 Hct 37.1 MCV 81.3 MCH 26.8 L MCHC 32.9 L RDW 15.0 H Plt Count 155 MPV 11.0 Neut % (Auto) 85.0 H Lymph % (Auto) 5.7 L [place] % (Auto) 5.9 Eos % (Auto) 2.9 Baso % (Auto) 0.5 Neut # (Auto) 15.1 H Lymph # (Auto) 1.0 [place] # (Auto) 1.0 H Eos # (Auto) 0.5 Baso # (Auto) 0.1 Neutrophils % (Manual) 87 H Lymphocytes % (Manual) 4 L Monocytes % (Manual) 5 Eosinophils % (Manual) 3 Basophils % (Manual) 1 Platelet Estimate Normal RBC Morphology pO2 VBG pH VBG pCO2 VBG HCO3 VBG Total CO2 VBG O2 Sat (Calc) VBG Base Excess VBG Potassium Glucose Lactate FiO2 Sodium Potassium Chloride Carbon Dioxide Anion Gap BUN Creatinine Est GFR ( Amer) Est GFR (Non-Af Amer) Random Glucose Calcium Phosphorus Magnesium Total Bilirubin AST ALT Alkaline Phosphatase Total Protein Albumin Globulin Albumin/Globulin Ratio Venous Blood Potassium Urine Color Yellow Urine Clarity Hazy Urine pH 7.0 Ur Specific Meherrin 1.021 Urine Protein 2+ H Urine Glucose (UA) Normal Urine Ketones Negative Urine Blood 1+ H Urine Nitrate Positive H Urine Bilirubin Negative Urine Urobilinogen 4.0 Ur Leukocyte Esterase 3+ H Urine WBC (Auto) 231 H Urine RBC (Auto) 29 H Ur Squamous Epith Cells < 1 Urine Bacteria Few H Urine Yeast (Budding) Few H Influenza Typ A,B (EIA) Negative for flu a/b 04/19/18 06:41 WBC RBC Hgb Hct MCV MCH MCHC RDW Plt Count MPV Neut % (Auto) Lymph % (Auto) [place] % (Auto) Eos % (Auto) Baso % (Auto) Neut # (Auto) Lymph # (Auto) [place] # (Auto) Eos # (Auto) Baso # (Auto) Neutrophils % (Manual) Lymphocytes % (Manual) Monocytes % (Manual) Eosinophils % (Manual) Basophils % (Manual) Platelet Estimate RBC Morphology pO2 VBG pH VBG pCO2 VBG HCO3 VBG Total CO2 VBG O2 Sat (Calc) VBG Base Excess VBG Potassium Glucose Lactate FiO2 Sodium 146 Potassium 4.2 Chloride 109 H Carbon Dioxide 28 Anion Gap 14 BUN 20 Creatinine 0.5 L Est GFR ( Amer) > 60 Est GFR (Non-Af Amer) > 60 Random Glucose 101 Calcium 9.1 Phosphorus 2.2 L Magnesium 2.1 Total Bilirubin 1.3 AST 16 L D ALT 27 Alkaline Phosphatase 111 Total Protein 7.4 Albumin 3.8 Globulin 3.6 Albumin/Globulin Ratio 1.1 Venous Blood Potassium Urine Color Urine Clarity Urine pH Ur Specific Meherrin Urine Protein Urine Glucose (UA) Urine Ketones Urine Blood Urine Nitrate Urine Bilirubin Urine Urobilinogen Ur Leukocyte Esterase Urine WBC (Auto) Urine RBC (Auto) Ur Squamous Epith Cells Urine Bacteria Urine Yeast (Budding) Influenza Typ A,B (EIA) Assessment & Plan - Assessment and Plan (Free Text) Assessment: Patient is a 37yo male with PMHx significant for advanced multiple sclerosis, seizure d/o, diabetes who is nonverbal at baseline who was referred to the ED from our outpatient office yesterday for PEG replacement -Sepsis with presumed urinary source -PEG dislodgement Plan: -On broad spectrum antibiotics with Vanc/Zosyn -PEG tube replaced at bedside with [employer] 20F Endo[employer] replacement PEG tube -Confirmation of placement noted by auscultation as well as aspiration of gastric contents -Secured at 4cm at the skin -Bacitracin ointment applied to site -Please closely monitor patient as he has inadvertently removed PEG multiple times -Recommend placement of abdominal binder -New PEG OK for use for tube feeding, medication, free water flushes -Maintain NPO - Date & Time Date: 04/19/18 Time: 06:50 <Ayo De La Fuente - Last Filed: 04/19/18 18:46> Meds - Medications Medications: Current Medications Acetaminophen (Tylenol 325mg Tab) 325 mg GT Q6 PRN PRN Reason: Fever >100.4 F Albuterol/Ipratropium (Duoneb 3 Mg/0.5 Mg (3 Ml) Ud) 3 ml IH RQ6 PRN PRN Reason: Shortness of Breath Apixaban (Eliquis) 5 mg GT BID [facility] Last Admin: 04/19/18 17:19 Dose: 5 mg Dextrose (Dextrose 50% Inj) 0 ml IV STAT PRN; Protocol PRN Reason: Hypoglycemia Protocol Dextrose (Glutose 15) 0 gm PO ONCE PRN; Protocol PRN Reason: Hypoglycemia Protocol Fentanyl (Duragesic) 1 patch TD Q72H [facility] Last Admin: 04/19/18 17:20 Dose: 1 patch Glucagon (Glucagen Diagnostic Kit) 0 mg IM STAT PRN; Protocol PRN Reason: Hypoglycemia Protocol Piperacillin Sod/Tazobactam Sod (Zosyn 3.375 Gm Iv Premix) 3.375 gm in 50 mls @ 100 mls/hr IVPB Q6H [facility]; Protocol Last Admin: 04/19/18 13:56 Dose: 100 mls/hr Vancomycin/Sodium Chloride (Vancomycin 1 Gm/Ns 200 Ml) 1 gm in 200 mls @ 133.333 mls/hr IVPB Q24H [facility]; Protocol Last Admin: 04/19/18 04:10 Dose: 133.333 mls/hr Dextrose/Lactated Ringer's (Dextrose 5%/Lactated Ringer's) 1,000 mls @ 100 mls/hr IV .Q10H [facility] Last Admin: 04/19/18 06:09 Dose: 100 mls/hr Dextrose (Dextrose 5% In Water 1000 Ml) 1,000 mls @ 0 mls/hr IV .Q0M PRN; Protocol PRN Reason: Hypoglycemia Protocol Influenza Virus Vaccine (Fluzone Quad [id number]) 60 mcg IM .ONCE ONE Stop: 04/20/18 10:01 Lacosamide (Vimpat) 200 mg PO Q12 [facility] Last Admin: 04/19/18 11:53 Dose: 200 mg Levetiracetam (Keppra) 1,000 mg GT BID [facility] Last Admin: 04/19/18 17:20 Dose: 1,000 mg Lorazepam (Ativan) 0.5 mg GT Q12 PRN PRN Reason: Seizure activity Pantoprazole Sodium (Protonix Inj) 40 mg IVP DAILY [facility] Last Admin: 04/19/18 10:40 Dose: 40 mg Pneumococcal Polyvalent Vaccine (Pneumovax 23 Vaccine) 0.5 ml IM .ONCE ONE Stop: 04/20/18 10:01 Results - Vital Signs Recent Vital Signs: Last Vital Signs Temp 98.9 F 04/19/18 15:43 Pulse 70 04/19/18 15:43 Resp 20 04/19/18 15:43 BP 106/74 04/19/18 15:43 Pulse Ox 98 04/19/18 15:43 - Labs Result Diagrams: 04/19/18 06:41 04/19/18 06:41 Labs: Laboratory Results - last 24 hr 04/18/18 04/19/18 04/19/18 22:37 06:17 06:41 WBC 17.8 H RBC 4.56 Hgb 12.2 Hct 37.1 MCV 81.3 MCH 26.8 L MCHC 32.9 L RDW 15.0 H Plt Count 155 MPV 11.0 Neut % (Auto) 85.0 H Lymph % (Auto) 5.7 L [place] % (Auto) 5.9 Eos % (Auto) 2.9 Baso % (Auto) 0.5 Neut # (Auto) 15.1 H Lymph # (Auto) 1.0 [place] # (Auto) 1.0 H Eos # (Auto) 0.5 Baso # (Auto) 0.1 Neutrophils % (Manual) 87 H Lymphocytes % (Manual) 4 L Monocytes % (Manual) 5 Eosinophils % (Manual) 3 Basophils % (Manual) 1 Platelet Estimate Normal Sodium Potassium Chloride Carbon Dioxide Anion Gap BUN Creatinine Est GFR ( Amer) Est GFR (Non-Af Amer) POC Glucose (mg/dL) 96 112 H Random Glucose Calcium Phosphorus Magnesium Total Bilirubin AST ALT Alkaline Phosphatase Total Protein Albumin Globulin Albumin/Globulin Ratio 04/19/18 04/19/18 06:41 11:04 WBC RBC Hgb Hct MCV MCH MCHC RDW Plt Count MPV Neut % (Auto) Lymph % (Auto) [place] % (Auto) Eos % (Auto) Baso % (Auto) Neut # (Auto) Lymph # (Auto) [place] # (Auto) Eos # (Auto) Baso # (Auto) Neutrophils % (Manual) Lymphocytes % (Manual) Monocytes % (Manual) Eosinophils % (Manual) Basophils % (Manual) Platelet Estimate Sodium 146 Potassium 4.2 Chloride 109 H Carbon Dioxide 28 Anion Gap 14 BUN 20 Creatinine 0.5 L Est GFR ( Amer) > 60 Est GFR (Non-Af Amer) > 60 POC Glucose (mg/dL) 116 H Random Glucose 101 Calcium 9.1 Phosphorus 2.2 L Magnesium 2.1 Total Bilirubin 1.3 AST 16 L D ALT 27 Alkaline Phosphatase 111 Total Protein 7.4 Albumin 3.8 Globulin 3.6 Albumin/Globulin Ratio 1.1 Attending/Attestation - Attestation I have personally seen and examined this patient.: Yes I have fully participated in the care of the patient.: Yes I have reviewed all pertinent clinical information: Yes Notes (Text): 04/19/18 18:41 I have seen and examined patient with GI fellow. Agree with above documentation with the following additions. In brief, this is a 37 year old male with history of multiple sclerosis, seizure disorder, DM, who was sent to hospital for further evaluation of gastrostomy tube malfunction. On arrival to ER, patient found to be febrile with tachycardia and was admitted for infectious treatment and workup. Patient has a history of multiple feeding tube dislodgement, most recently replaced at bedside last month. Patient is non- verbal at baseline, therefore not able to participate with conversation. Additional information obtained via chart review, discussion with nursing staff, and patient family member. There is no reported abdominal pain, nausea, vomiting, chills, rectal bleeding, or change in bowel habits. Multiple sclerosis Seizure disorder DM Gastrostomy tube malfunction UTI - Bedside tube exchange performed as per above documentation, patient tolerated procedure well without complications - May use feeding tube immediately for feeds and medication - Flush PEG with 30 cc water q 8 hours - Suggest use of abdominal binder to reduce chance of patient pulling tube out - Continue with antibiotic therapy and infectious workup as per medical team - No further planned GI intervention, will sign off case. Please reconsult as necessary, thank you.
[2018-04-19] MEDS ORDERED: OMEPRAZOLE 2 MG PO SCH (10:00)
[2018-04-19] MEDS ORDERED: Home Med 1 UNIT (Fentanyl [Fentanyl] 1 EACH) TD SCH ×2 (10:30→11:00)
--- NOTE | 2018-04-19 10:47 | CP.PCM.CON ---
History of Present Illness - History of Present Illness History of Present Illness: Palliative consult requested by Doctor Olguin for goals of care discussion Patient is a37 yo male admitted from [facility] for PEG tube replacement. Patient was sent in by Doctor Suad who noticed foul smelling liquid coming out from PEG. Patient was given temporally Iniguez tube at the [place]. Last time PEG was changed on 02/28/18 by Doctor Aakash. Upon this admission patient was found with WBC of 19.9. Vanco and Zosyn startted. WBC today 17.8. Patient is afebrile. Urine analysis significant for WBCs in urine. Patient is contracted, nonverbal and looking extremely, chronically ill, unable to advocate for himself. Palliative consult called to assist in goals of care discussion. PMH: S/P respiratory failure and trach, Dysphagia, PEG, aphasia, MS, DM, contractions Soc. Hx: single, [place] resident, brother Romario Carrion is POA( [phone] Fam. Hx: unknown, unobtainable from patient due to aphasia Review of Systems - Review of Systems All systems: reviewed and no additional remarkable complaints except Review of Systems: ROS unobtainable from patient due to aphasia. ROS obtained from nursing. Pernursing, patient remained with clamped PEG tube and D5% is on board, per protocol Past Patient History - Past Medical History & Family History Past Medical History?: Yes - Past Social History Smoking Status: Unknown If Ever Smoked - CARDIAC Hx Cardiac Disorders: No - PULMONARY Hx Respiratory Disorders: Yes Other/Comment: HX RESPIRATORY FAILURE HX TRACH - NEUROLOGICAL Hx Neurological Disorder: Yes Hx Seizures: Yes - HEENT Hx HEENT Problems: No - RENAL Hx Chronic Kidney Disease: No - ENDOCRINE/METABOLIC Hx Endocrine Disorders: Yes Hx Diabetes Mellitus Type 2: Yes - HEMATOLOGICAL/ONCOLOGICAL Hx Blood Disorders: No - INTEGUMENTARY Hx Dermatological Problems: Yes Other/Comment: PRESSURE ULCERS - MUSCULOSKELETAL/RHEUMATOLOGICAL Hx Musculoskeletal Disorders: Yes Hx Falls: No Other/Comment: CONTRACTED - GASTROINTESTINAL Hx Gastrointestinal Disorders: Yes Hx Gastroesophageal Reflux: Yes Other/Comment: DYSPHAGIA PEG - GENITOURINARY/GYNECOLOGICAL Hx Genitourinary Disorders: No - PSYCHIATRIC Hx Depression: Yes (PER CHART MOOD DISORDER DUE TO DX/CONDITION) Hx Substance Use: No - SURGICAL HISTORY Hx Surgeries: Yes Other/Comment: PEG TUBE INSERTION, TRACHEOSTOMY - ANESTHESIA Hx Anesthesia: Yes Hx Anesthesia Reactions: No Hx Malignant Hyperthermia: No Meds Allergies/Adverse Reactions: Allergies Allergy/AdvReac Type Severity Reaction Status Date / Time No Known Allergies Allergy Verified 01/24/18 06:58 - Medications Medications: Current Medications Acetaminophen (Tylenol 325mg Tab) 325 mg GT Q6 PRN PRN Reason: Fever >100.4 F Albuterol/Ipratropium (Duoneb 3 Mg/0.5 Mg (3 Ml) Ud) 3 ml IH RQ6 PRN PRN Reason: Shortness of Breath Apixaban (Eliquis) 5 mg GT BID [facility] Dextrose (Dextrose 50% Inj) 0 ml IV STAT PRN; Protocol PRN Reason: Hypoglycemia Protocol Dextrose (Glutose 15) 0 gm PO ONCE PRN; Protocol PRN Reason: Hypoglycemia Protocol Glucagon (Glucagen Diagnostic Kit) 0 mg IM STAT PRN; Protocol PRN Reason: Hypoglycemia Protocol Home Med (Fentanyl [Fentanyl]) 1 each TD Q72 [facility] Piperacillin Sod/Tazobactam Sod (Zosyn 3.375 Gm Iv Premix) 3.375 gm in 50 mls @ 100 mls/hr IVPB Q6H [facility]; Protocol Last Admin: 04/19/18 06:05 Dose: 100 mls/hr Vancomycin/Sodium Chloride (Vancomycin 1 Gm/Ns 200 Ml) 1 gm in 200 mls @ 133.333 mls/hr IVPB Q24H [facility]; Protocol Last Admin: 04/19/18 04:10 Dose: 133.333 mls/hr Dextrose/Lactated Ringer's (Dextrose 5%/Lactated Ringer's) 1,000 mls @ 100 mls/hr IV .Q10H [facility] Last Admin: 04/19/18 06:09 Dose: 100 mls/hr Dextrose (Dextrose 5% In Water 1000 Ml) 1,000 mls @ 0 mls/hr IV .Q0M PRN; Protocol PRN Reason: Hypoglycemia Protocol Influenza Virus Vaccine (Fluzone Quad [id number]) 60 mcg IM .ONCE ONE Stop: 04/20/18 10:01 Lacosamide (Vimpat) 200 mg PO Q12 [facility] Levetiracetam (Keppra) 1,000 mg GT BID [facility] Lorazepam (Ativan) 0.5 mg GT Q12 PRN PRN Reason: Seizure activity Pantoprazole Sodium (Protonix Inj) 40 mg IVP DAILY [facility] Pneumococcal Polyvalent Vaccine (Pneumovax 23 Vaccine) 0.5 ml IM .ONCE ONE Stop: 04/20/18 10:01 Physical Exam - Constitutional Appears: No Acute Distress, Chronically Ill - Head Exam Head Exam: ATRAUMATIC, NORMAL INSPECTION, NORMOCEPHALIC - Eye Exam Eye Exam: EOMI, Normal appearance, PERRL Pupil Exam: NORMAL ACCOMODATION, PERRL - ENT Exam ENT Exam: Mucous Membranes Moist, Normal Exam - Neck Exam Neck exam: Positive for: Normal Inspection - Respiratory Exam Respiratory Exam: Decreased Breath Sounds, Prolonged Expiratory Phase - Cardiovascular Exam Cardiovascular Exam: Tachycardia, +S1, +S2 - GI/Abdominal Exam Additional comments: PEG - Rectal Exam Rectal Exam: Deferred - Exam Exam: NORMAL INSPECTION Additional comments: Iniguez cath - Extremities Exam Extremities exam: Positive for: pedal edema Additional comments: contracted - Back Exam Back exam: NORMAL INSPECTION - Neurological Exam Neurological exam: Alert, Motor Sensory Deficit - Psychiatric Exam Psychiatric exam: Flat Affect - Skin Skin Exam: Normal Color Results - Vital Signs Recent Vital Signs: Last Vital Signs Temp 99.3 F 04/19/18 07:00 Pulse 95 H 04/19/18 08:32 Resp 18 04/19/18 07:00 BP 102/72 04/19/18 07:00 Pulse Ox 100 04/19/18 07:00 - Labs Result Diagrams: 04/19/18 06:41 04/19/18 06:41 Labs: Laboratory Results - last 24 hr 04/18/18 04/18/18 04/18/18 15:09 15:09 15:15 WBC 19.9 H RBC 5.20 Hgb 13.9 Hct 41.9 MCV 80.6 MCH 26.6 L MCHC 33.0 RDW 15.0 H Plt Count 198 MPV 11.1 Neut % (Auto) 85.9 H Lymph % (Auto) 5.9 L Mes[place] % (Auto) 7.2 Eos % (Auto) 0.7 Baso % (Auto) 0.3 Neut # (Auto) 17.1 H Lymph # (Auto) 1.2 Mesa # (Auto) 1.4 H Eos # (Auto) 0.1 Baso # (Auto) 0.1 Neutrophils % (Manual) 89 H Lymphocytes % (Manual) 3 L Monocytes % (Manual) 7 Eosinophils % (Manual) 1 Basophils % (Manual) Platelet Estimate Normal RBC Morphology Normal pO2 53 VBG pH 7.41 VBG pCO2 48 VBG HCO3 28.4 VBG Total CO2 31.9 H VBG O2 Sat (Calc) 92.5 H VBG Base Excess 4.8 H VBG Potassium 3.5 L Glucose 116 H Lactate 0.9 FiO2 21.0 Sodium 145 143.0 Potassium 4.0 Chloride 103 108.0 H Carbon Dioxide 29 Anion Gap 17 BUN 29 H Creatinine 0.6 L Est GFR ( Amer) > 60 Est GFR (Non-Af Amer) > 60 POC Glucose (mg/dL) Random Glucose 126 H Calcium 9.5 Phosphorus Magnesium Total Bilirubin 0.7 AST 24 ALT 32 Alkaline Phosphatase 152 H Total Protein 8.6 H Albumin 4.4 Globulin 4.2 H Albumin/Globulin Ratio 1.0 Venous Blood Potassium 3.5 L Urine Color Urine Clarity Urine pH Ur Specific Kennan Urine Protein Urine Glucose (UA) Urine Ketones Urine Blood Urine Nitrate Urine Bilirubin Urine Urobilinogen Ur Leukocyte Esterase Urine WBC (Auto) Urine RBC (Auto) Ur Squamous Epith Cells Urine Bacteria Urine Yeast (Budding) Influenza Typ A,B (EIA) 04/18/18 04/18/18 04/18/18 15:27 15:45 22:37 WBC RBC Hgb Hct MCV MCH MCHC RDW Plt Count MPV Neut % (Auto) Lymph % (Auto) Mesa % (Auto) Eos % (Auto) Baso % (Auto) Neut # (Auto) Lymph # (Auto) Mes[place] # (Auto) Eos # (Auto) Baso # (Auto) Neutrophils % (Manual) Lymphocytes % (Manual) Monocytes % (Manual) Eosinophils % (Manual) Basophils % (Manual) Platelet Estimate RBC Morphology pO2 VBG pH VBG pCO2 VBG HCO3 VBG Total CO2 VBG O2 Sat (Calc) VBG Base Excess VBG Potassium Glucose Lactate FiO2 Sodium Potassium Chloride Carbon Dioxide Anion Gap BUN Creatinine Est GFR ( Amer) Est GFR (Non-Af Amer) POC Glucose (mg/dL) 96 Random Glucose Calcium Phosphorus Magnesium Total Bilirubin AST ALT Alkaline Phosphatase Total Protein Albumin Globulin Albumin/Globulin Ratio Venous Blood Potassium Urine Color Yellow Urine Clarity Hazy Urine pH 7.0 Ur Specific Kennan 1.021 Urine Protein 2+ H Urine Glucose (UA) Normal Urine Ketones Negative Urine Blood 1+ H Urine Nitrate Positive H Urine Bilirubin Negative Urine Urobilinogen 4.0 Ur Leukocyte Esterase 3+ H Urine WBC (Auto) 231 H Urine RBC (Auto) 29 H Ur Squamous Epith Cells < 1 Urine Bacteria Few H Urine Yeast (Budding) Few H Influenza Typ A,B (EIA) Negative for flu a/b 04/19/18 04/19/18 04/19/18 06:17 06:41 06:41 WBC 17.8 H RBC 4.56 Hgb 12.2 Hct 37.1 MCV 81.3 MCH 26.8 L MCHC 32.9 L RDW 15.0 H Plt Count 155 MPV 11.0 Neut % (Auto) 85.0 H Lymph % (Auto) 5.7 L [place] % (Auto) 5.9 Eos % (Auto) 2.9 Baso % (Auto) 0.5 Neut # (Auto) 15.1 H Lymph # (Auto) 1.0 Mesa # (Auto) 1.0 H Eos # (Auto) 0.5 Baso # (Auto) 0.1 Neutrophils % (Manual) 87 H Lymphocytes % (Manual) 4 L Monocytes % (Manual) 5 Eosinophils % (Manual) 3 Basophils % (Manual) 1 Platelet Estimate Normal RBC Morphology pO2 VBG pH VBG pCO2 VBG HCO3 VBG Total CO2 VBG O2 Sat (Calc) VBG Base Excess VBG Potassium Glucose Lactate FiO2 Sodium 146 Potassium 4.2 Chloride 109 H Carbon Dioxide 28 Anion Gap 14 BUN 20 Creatinine 0.5 L Est GFR ( Amer) > 60 Est GFR (Non-Af Amer) > 60 POC Glucose (mg/dL) 112 H Random Glucose 101 Calcium 9.1 Phosphorus 2.2 L Magnesium 2.1 Total Bilirubin 1.3 AST 16 L D ALT 27 Alkaline Phosphatase 111 Total Protein 7.4 Albumin 3.8 Globulin 3.6 Albumin/Globulin Ratio 1.1 Venous Blood Potassium Urine Color Urine Clarity Urine pH Ur Specific Kennan Urine Protein Urine Glucose (UA) Urine Ketones Urine Blood Urine Nitrate Urine Bilirubin Urine Urobilinogen Ur Leukocyte Esterase Urine WBC (Auto) Urine RBC (Auto) Ur Squamous Epith Cells Urine Bacteria Urine Yeast (Budding) Influenza Typ A,B (EIA) Assessment & Plan - Assessment and Plan (Free Text) Assessment: Palliative consult Full Code, there is no Advance directive on chart, PPS 10% I reviewed Medical records, all diagnostic studies, examined patient in the bed. Patient is alert, eyes open, head tilted to right side, does not fallow commends, does not react to touch. Upper and lower extremities are extremely contracted. Breathing is deep, with long expiration, patient makes snoring sounds while breathing. Patient is drooling from the mouth. PEG is clamped. D 50% on board. Awaiting Doctor Aakash's consult. NPO. Iniguez cath in place. Urine cloudy and blood tinged. BP 102/72, HR 97, patient is afebrile. Impression * This is a very sick, unfortunate, young male with complex medical Hx * Aphasia * Dysphagia * PEG malfunctioning * Contractures * Unable to advocate for himself * At risk for aspiration * Lack of Advance directive Suggestions * In the face of complex medical Hx. care of this patient should be directed toward symptoms control * Aspiration precautions * Turning and repositioning Q 2 hr * Oral care * Oral suctioning for excessive saliva * Code status discussion at today's family meeting Family meeting scheduled for 12 pm today with patient's brother. Doctor Angeles made aware. I will update my notes after the meeting.
[2018-04-19] MEDS ORDERED: FENTANYL 25 MCG TD SCH (11:00)
[2018-04-19] MEDS: levETIRAcetam 100 mg/ml (5ml) Oral Syringe GT SCH ×3 (11:38→17:20)
[2018-04-19] MEDS: Lacosamide 100 MG Tab PO SCH ×3 (11:38→21:44)
[2018-04-19 16:18] VITALS: RESP 20
--- NOTE | 2018-04-19 19:42 | CARD ---
APPROVED REPORT Date of service: 04/18/2018 EKG Measurement Heart [id number] <Conclusion> Reversed arm leads Normal sinus rhythm ST & T wave abnormality, nonspecific Prolonged QT Abnormal ECG
[2018-04-20] MEDS: Piperacill/Tazo 3.375gm in Dex 3.375 GM/50 ML BAG IVPB SCH ×4 (00:55→18:02)
[2018-04-20] MEDS: Dextrose 5%/Lactated Ringer's 1,000 ML IV SCH ×2 (05:18→10:44)
[2018-04-20] MEDS: Vancomycin 1 gm/NS 200 ml 1 GM/200 ML BAG IVPB SCH (05:50)
[2018-04-20 05:58] LABS: BASO % 0.4 % (0.0-2.0); EOS # 0.5 K/uL (0.0-0.7); EOS % 4.9 % (0.0-4.0); HEMOGLOBIN 11.3 g/dL (12.0-18.0); LYMPH # 1.1 K/uL (1.0-4.3); LYMPH % 10.2 % (20.0-40.0); MEAN CELL VOLUME 81.5 fL (80.0-94.0); MEAN CORPUSCULAR HEMOGLOBIN 26.9 pg (27.0-31.0); MEAN PLATELET VOLUME 10.9 fL (7.2-11.7); MONO # 0.7 K/uL (0.0-0.8); MONO % 6.7 % (0.0-10.0); NEUT % 77.8 % (50.0-75.0); RBC 4.2 Mil/uL (4.40-5.90); RED CELL DISTRIBUTION WIDTH 14.9 % (11.5-14.5); WHITE BLOOD COUNT 10.3 K/uL (4.8-10.8)
[2018-04-20 06:21] LABS: ALB/GLOB RATIO 0.9 (1.0-2.1); ALBUMIN 3.4 g/dL (3.5-5.0); ALT/SGPT 30 U/L (21-72); AST/SGOT 22 U/L (17-59); BLOOD UREA NITROGEN 12 mg/dL (9-20); CALCIUM 9.2 mg/dl (8.6-10.4); GFR NON-AFRICAN AMERICAN > 60
--- NOTE | 2018-04-20 09:08 | CP.PCM.PN ---
<Renan Perez - Last Filed: 04/20/18 17:10> Subjective - Date & Time of Evaluation Date of Evaluation: 04/20/18 Time of Evaluation: 09:08 - Subjective Subjective: Progress Note for Hospitalist Service Patient seen and examined at bedside. Patient is aphasic, unable to provide history with contracted extremities. Patient groans, with eyes open, oral secretions noted. Family not present at bedside. Handley in place draining dark urine. Objective - Vital Signs/Intake and Output Vital Signs (last 24 hours): Temp Pulse Resp BP Pulse Ox 99.9 F H 97 H 20 106/73 100 04/20/18 07:10 04/20/18 07:10 04/20/18 07:10 04/20/18 07:10 04/20/18 07:10 Intake and Output: 04/20/18 04/20/18 06:59 18:59 Intake Total 1380 Output Total 800 Balance 580 - Medications Medications: Current Medications Acetaminophen (Tylenol 325mg Tab) 325 mg GT Q6 PRN PRN Reason: Fever >100.4 F Albuterol/Ipratropium (Duoneb 3 Mg/0.5 Mg (3 Ml) Ud) 3 ml IH RQ6 PRN PRN Reason: Shortness of Breath Apixaban (Eliquis) 5 mg GT BID [facility] Last Admin: 04/19/18 17:19 Dose: 5 mg Dextrose (Dextrose 50% Inj) 0 ml IV STAT PRN; Protocol PRN Reason: Hypoglycemia Protocol Dextrose (Glutose 15) 0 gm PO ONCE PRN; Protocol PRN Reason: Hypoglycemia Protocol Fentanyl (Duragesic) 1 patch TD Q72H [facility] Last Admin: 04/19/18 17:20 Dose: 1 patch Glucagon (Glucagen Diagnostic Kit) 0 mg IM STAT PRN; Protocol PRN Reason: Hypoglycemia Protocol Piperacillin Sod/Tazobactam Sod (Zosyn 3.375 Gm Iv Premix) 3.375 gm in 50 mls @ 100 mls/hr IVPB Q6H [facility]; Protocol Last Admin: 04/20/18 06:34 Dose: 100 mls/hr Dextrose/Lactated Ringer's (Dextrose 5%/Lactated Ringer's) 1,000 mls @ 100 mls/hr IV .Q10H [facility] Last Admin: 04/20/18 05:18 Dose: 100 mls/hr Dextrose (Dextrose 5% In Water 1000 Ml) 1,000 mls @ 0 mls/hr IV .Q0M PRN; Protocol PRN Reason: Hypoglycemia Protocol Influenza Virus Vaccine (Fluzone Quad [id number]) 60 mcg IM .ONCE ONE Stop: 04/20/18 10:01 Lacosamide (Vimpat) 200 mg PO Q12 [facility] Last Admin: 04/19/18 21:44 Dose: 200 mg Levetiracetam (Keppra) 1,000 mg GT BID [facility] Last Admin: 04/19/18 17:20 Dose: 1,000 mg Lorazepam (Ativan) 0.5 mg GT Q12 PRN PRN Reason: Seizure activity Pantoprazole Sodium (Protonix Inj) 40 mg IVP DAILY [facility] Last Admin: 04/19/18 10:40 Dose: 40 mg Pneumococcal Polyvalent Vaccine (Pneumovax 23 Vaccine) 0.5 ml IM .ONCE ONE Stop: 04/20/18 10:01 - Labs Labs: 04/20/18 05:54 04/20/18 05:54 - Constitutional Appears: Other (Eyes are open, groans intermittently, contracted upper extremities ) - Head Exam Head Exam: ATRAUMATIC, NORMOCEPHALIC - Eye Exam Additional comments: Eyes open, however patient unable to follow commands. Pupils not fixed. - ENT Exam ENT Exam: Mucous Membranes Moist - Neck Exam Neck Exam: Full ROM - Respiratory Exam Respiratory Exam: Clear to Ausculation Bilateral. absent: Rales, Rhonchi, Wheezes, Respiratory Distress, Stridor Additional comments: palpable port in left chest - Cardiovascular Exam Cardiovascular Exam: REGULAR RHYTHM, +S1, +S2. absent: Gallop, Rubs, Murmur - GI/Abdominal Exam GI & Abdominal Exam: Soft, Normal Bowel Sounds. absent: Distended, Guarding, Rigid, Hernia (Left abdomen: PEG tube in place with no evidence of infection. Unable to assess tenderness. ) - Exam Additional comments: Marked hypospadia, handley in place draining dark urine - Extremities Exam Extremities Exam: absent: Calf Tenderness, Pedal Edema Additional comments: Right Lower extremity: Unstageable ulcer on right heel. Stage 3 ulcer on right lateral malleolus. Stage 2 lateral plantar aspect. black necrotic region between 4th and 5th interdigital space. Left lower extremity: left heel ulcer - Back Exam Back Exam: absent: CVA tenderness (L), CVA tenderness (R) - Neurological Exam Additional comments: Unable to assess mental status since patient is aphasic. eyes are open, unable to answer questions. - Skin Additional comments: Multiple scars on body, sacral region has healed ulcer with no skin breakdown. Assessment and Plan - Assessment and Plan (Free Text) Plan: Assessment and plan Assessment 37 year old male with history of respiratory failure, seizure disorder, MS, Type 2 DM, aphasia, dysphagia, obstructive uropathy who presented from [facility] for peg tube replacement after patient was noted to have foul smelling drainage from site. Admitted for further evaluation and treatment of urinary tra ct infection with leukocytosis and PEG tube replacement. Plan Leukocytosis/SIRS Likely secondary to Urinary Tract infection Patient remains afebrile currently, was febrile on admission to 102.5 CXR: no active disease Patient received Vancomycin, Moxifloxacin and Cefepime in ED. IV Abx: Vancomycin 1g IV Q24 hours (04/18 -04/19), Zosyn 3.375g IV Q6 (started 04/18/18) Tylenol 650mg Q6 PRN for fevers Follow up blood cultures, urine cultures Urine culture positive for Proteus mirabilis, sensitive to Zosyn Blood cultures prelim no growth Awaiting final blood cultures Bacid 1cap GT BID Vanco trough <5.0, however vancomycin discontinued 04/19/18 PEG Tube dysfunction Last Peg tube changed by Dr. De La Fuente on 02/28/18 Currently has handley tube in place. Tube to be flushed QID GI Dr. De La Fuente consulted, help appreciated PEG Tube changed 04/19/18, who recommended placement of abdominal binder, and stated new peg tube okay to be used for tube feeding, medication, free water flushes. Eliquis resumed To remain NPO Fluids discontinued Glucerna tube feeds resumed 04/19/18 Pressure ulcers Stage IV pressure ulcer on LLE, RLE Zosyn 3.375g IV Q6 Day 3 Bacid 1cap GT BID Wound care consulted Turn and reposition every 2 hours Seizure disorder Keppra 1000mg BID Vimpat 200mg Q12 To be given by G tube Seizure precautions Aspiration precautions Type 2 DM Low dose ISS Hypoglycemia protocol History of respiratory distress, currently stable Duonebs Q6 PRN History of MS/dysphagia/aphasia Poor quality of life, remains bedbound, nonexpressive Pallative care Janeth consulted As per note, scheduled to have family meeting today with patient's brother Murali Doss who is POA [phone] Spoke with patient's brother regarding goals of care, who stated that he wants to keep him full code. PPX: GI: Protonix 40mg IV DVT: On Eliquis, SCDs not indicated due to pressure ulcers Medications to be administered through G tube Case discussed with Dr. Bridgette Perez, PGY1 <Candy Angeles - Last Filed: 04/21/18 18:58> Objective - Vital Signs/Intake and Output Vital Signs (last 24 hours): Temp Pulse Resp BP Pulse Ox 99.5 F 73 20 110/78 95 04/21/18 15:00 04/21/18 15:30 04/21/18 15:00 04/21/18 15:00 04/21/18 15:00 Intake and Output: 04/21/18 04/21/18 06:59 18:59 Intake Total 1140 345 Output Total 750 500 Balance 390 -155 - Medications Medications: Current Medications Acetaminophen (Tylenol 325mg Tab) 325 mg GT Q6 PRN PRN Reason: Fever >100.4 F Acetaminophen (Tylenol 650mg/20.3ml Solution Ud) 650 mg GT Q4 PRN PRN Reason: Temperature Last Admin: 04/21/18 14:02 Dose: 650 mg Albuterol/Ipratropium (Duoneb 3 Mg/0.5 Mg (3 Ml) Ud) 3 ml IH RQ6 PRN PRN Reason: Shortness of Breath Apixaban (Eliquis) 5 mg GT BID [facility] Last Admin: 04/21/18 10:09 Dose: 5 mg Dextrose (Dextrose 50% Inj) 0 ml IV STAT PRN; Protocol PRN Reason: Hypoglycemia Protocol Dextrose (Glutose 15) 0 gm PO ONCE PRN; Protocol PRN Reason: Hypoglycemia Protocol Fentanyl (Duragesic) 1 patch TD Q72H [facility] Last Admin: 04/19/18 17:20 Dose: 1 patch Glucagon (Glucagen Diagnostic Kit) 0 mg IM STAT PRN; Protocol PRN Reason: Hypoglycemia Protocol Dextrose (Dextrose 5% In Water 1000 Ml) 1,000 mls @ 0 mls/hr IV .Q0M PRN; Protocol PRN Reason: Hypoglycemia Protocol Insulin Human Regular (Novolin R) 0 unit SC ACHS [facility]; Protocol Last Admin: 04/21/18 18:04 Dose: Not Given Lacosamide (Vimpat) 200 mg PO Q12 [facility] Last Admin: 04/21/18 10:09 Dose: 200 mg Lactobacillus Acidophilus (Bacid Acidophilus) 1 cap GT BID [facility] Last Admin: 04/21/18 10:09 Dose: 1 cap Levetiracetam (Keppra) 1,000 mg GT BID [facility] Last Admin: 04/21/18 10:31 Dose: 1,000 mg Lorazepam (Ativan) 0.5 mg GT Q12 PRN PRN Reason: Seizure activity Pantoprazole Sodium (Protonix Inj) 40 mg IVP DAILY [facility] Last Admin: 04/21/18 10:09 Dose: 40 mg Senna/Docusate Sodium (Senokot S 50 Mg-8.6 Mg) 1 tab GT BID [facility] Last Admin: 04/21/18 10:08 Dose: 1 tab Vitamin A (Vitamin A & D Oint Ud Foilpak) 0.5 ea TOP Q4 [facility] Last Admin: 04/21/18 12:20 Dose: 0.5 ea - Labs Labs: 04/21/18 08:13 04/21/18 08:13 Attending/Attestation - Attestation I have personally seen and examined this patient.: Yes I have fully participated in the care of the patient.: Yes I have reviewed all pertinent clinical information, including history, physical exam and plan: Yes Notes (Text): Seen and examined by me. Patient is bed bound nonverbal and contracted limbs. s/p peg change by gastro enterologist Proteus UTI,sensitive to zosyn continue zosyn,If blood cultue negative d/c
[2018-04-20] MEDS ORDERED: Influenza Vaccine 60 MCG/0.5 ML SYR (3 yr & up) IM ONE (10:00)
[2018-04-20] MEDS ORDERED: Pneumococcal 23-Valent Vaccine IM ONE (10:00)
[2018-04-20] MEDS: Lacosamide 100 MG Tab PO SCH ×2 (10:43→21:13)
[2018-04-20] MEDS: levETIRAcetam 100 mg/ml (5ml) Oral Syringe GT SCH ×2 (10:43→18:02)
[2018-04-20] MEDS: Vitamins A & D Oint UD Foilpak TOP SCH ×3 (11:24→20:13)
[2018-04-20] MEDS: (Novolin R) Insulin Human Regular 100 units/ml vial SC SCH ×2 (17:03→21:14)
[2018-04-20] MEDS: Lactobacillus Acidophilus 500 MU Cap GT SCH (18:02)
[2018-04-21] MEDS: Vitamins A & D Oint UD Foilpak TOP SCH ×6 (00:56→21:00)
[2018-04-21] MEDS: Piperacill/Tazo 3.375gm in Dex 3.375 GM/50 ML BAG IVPB SCH ×2 (01:53→06:10)
--- NOTE | 2018-04-21 07:09 | CP.PCM.PN ---
Subjective - Date & Time of Evaluation Date of Evaluation: 04/21/18 Time of Evaluation: 07:09 - Subjective Subjective: Progress Note for Hospitalist service Patient seen and examined at bedside. He is aphasic, unable to provide history with contracted extremities. Patient groans, with eyes open. Family not present at bedside. Handley in place draining urine. Objective - Vital Signs/Intake and Output Vital Signs (last 24 hours): Temp Pulse Resp BP Pulse Ox 98.8 F 72 20 134/61 95 04/20/18 23:45 04/21/18 04:00 04/20/18 23:45 04/20/18 23:45 04/20/18 23:45 Intake and Output: 04/21/18 04/21/18 06:59 18:59 Intake Total 1140 Output Total 750 Balance 390 - Medications Medications: Current Medications Acetaminophen (Tylenol 325mg Tab) 325 mg GT Q6 PRN PRN Reason: Fever >100.4 F Albuterol/Ipratropium (Duoneb 3 Mg/0.5 Mg (3 Ml) Ud) 3 ml IH RQ6 PRN PRN Reason: Shortness of Breath Apixaban (Eliquis) 5 mg GT BID MARILU Last Admin: 04/20/18 18:02 Dose: 5 mg Dextrose (Dextrose 50% Inj) 0 ml IV STAT PRN; Protocol PRN Reason: Hypoglycemia Protocol Dextrose (Glutose 15) 0 gm PO ONCE PRN; Protocol PRN Reason: Hypoglycemia Protocol Fentanyl (Duragesic) 1 patch TD Q72H MARILU Last Admin: 04/19/18 17:20 Dose: 1 patch Glucagon (Glucagen Diagnostic Kit) 0 mg IM STAT PRN; Protocol PRN Reason: Hypoglycemia Protocol Piperacillin Sod/Tazobactam Sod (Zosyn 3.375 Gm Iv Premix) 3.375 gm in 50 mls @ 100 mls/hr IVPB Q6H MARILU; Protocol Last Admin: 04/21/18 06:10 Dose: 100 mls/hr Dextrose (Dextrose 5% In Water 1000 Ml) 1,000 mls @ 0 mls/hr IV .Q0M PRN; Protocol PRN Reason: Hypoglycemia Protocol Insulin Human Regular (Novolin R) 0 unit SC ACHS MARILU; Protocol Last Admin: 04/20/18 21:14 Dose: Not Given Lacosamide (Vimpat) 200 mg PO Q12 MARILU Last Admin: 04/20/18 21:13 Dose: 200 mg Lactobacillus Acidophilus (Bacid Acidophilus) 1 cap GT BID MARILU Last Admin: 04/20/18 18:02 Dose: 1 cap Levetiracetam (Keppra) 1,000 mg GT BID [facility] Last Admin: 04/20/18 18:02 Dose: 1,000 mg Lorazepam (Ativan) 0.5 mg GT Q12 PRN PRN Reason: Seizure activity Pantoprazole Sodium (Protonix Inj) 40 mg IVP DAILY [facility] Last Admin: 04/20/18 10:43 Dose: 40 mg Vitamin A (Vitamin A & D Oint Ud Foilpak) 0.5 ea TOP Q4 [facility] Last Admin: 04/21/18 05:11 Dose: 0.5 ea - Labs Labs: 04/20/18 05:54 04/20/18 05:54 - Constitutional Appears: Other (Eyes open, patient unable to follow commands. pupils not fixed. ) - Head Exam Head Exam: ATRAUMATIC, NORMOCEPHALIC - ENT Exam ENT Exam: Mucous Membranes Moist - Respiratory Exam Respiratory Exam: Clear to Ausculation Bilateral. absent: Rales, Rhonchi, Wheezes, Stridor Additional comments: palpable port in left chest - Cardiovascular Exam Cardiovascular Exam: REGULAR RHYTHM, +S1, +S2. absent: Gallop, Rubs, Murmur - GI/Abdominal Exam GI & Abdominal Exam: Distended (Mild distention), Soft (Unable to assess tenderness, mild distention noted. No BMs overnight. ). absent: Firm, Guarding, Rigid - Exam Additional comments: Marked hypospadia, handley in place - Extremities Exam Extremities Exam: absent: Calf Tenderness, Pedal Edema Additional comments: RLE: unstageable ulcer on right heel. Stage 3 ulcer on right lateral malleolus. Stage 2 lateral plantar aspect. black necrotic region between 4th and 5th interdigital space. Left lower extremity: left heel ulcer - Back Exam Back Exam: absent: CVA tenderness (L), CVA tenderness (R) Additional comments: Unable to assess mental status. Eyes are open. - Skin Additional comments: Multiple scars on body, sacral region has healed ulcer with no skin breakdown. Assessment and Plan - Assessment and Plan (Free Text) Plan: Assessment and plan Assessment 37 year old male with history of respiratory failure, seizure disorder, MS, Type 2 DM, aphasia, dysphagia, obstructive uropathy who presented from [facility] for peg tube replacement after patient was noted to have foul smelling drainage from site. Admitted for further evaluation and treatment of urinary tract infection with leukocytosis and PEG tube replacement. Plan Leukocytosis/SIRS Likely secondary to Urinary Tract infection Patient remains afebrile currently, was febrile on admission to 102.5 CXR: no active disease Patient received Vancomycin, Moxifloxacin and Cefepime in ED. IV Abx: Vancomycin 1g IV Q24 hours (04/18 -04/19), Zosyn 3.375g IV Q6 (started 04/18/18) Tylenol 650mg Q6 PRN for fevers Follow up blood cultures, urine cultures Urine culture positive for Proteus mirabilis, sensitive to Zosyn Blood cultures prelim no growth Awaiting final blood cultures Bacid 1cap GT BID Vanco trough <5.0, however vancomycin discontinued 04/19/18 PEG Tube dysfunction Last Peg tube changed by Dr. De La Fuente on 02/28/18 Currently has handley tube in place. Tube to be flushed QID GI Dr. De La Fuente consulted, help appreciated PEG Tube changed 04/19/18, who recommended placement of abdominal binder, and stated new peg tube okay to be used for tube feeding, medication, free water fl ushes. Eliquis resumed To remain NPO Fluids discontinued Glucerna tube feeds resumed 04/19/18 Pressure ulcers Stage IV pressure ulcer on LLE, RLE Zosyn 3.375g IV Q6 Day 3 Bacid 1cap GT BID Wound care consulted Turn and reposition every 2 hours Seizure disorder Keppra 1000mg BID Vimpat 200mg Q12 To be given by G tube Seizure precautions Aspiration precautions Type 2 DM Low dose ISS Hypoglycemia protocol History of respiratory distress, currently stable Duonebs Q6 PRN History of MS/dysphagia/aphasia Poor quality of life, remains bedbound, nonexpressive Pallative care Janeth consulted As per note, scheduled to have family meeting today with patient's brother Murali Doss who is POA [phone] Spoke with patient's brother regarding goals of care, who stated that he wants to keep him full code. PPX: GI: Protonix 40mg IV DVT: On Eliquis, SCDs not indicated due to pressure ulcers Medications to be administered through G tube
[2018-04-21] MEDS: (Novolin R) Insulin Human Regular 100 units/ml vial SC SCH ×4 (08:09→22:05)
[2018-04-21 08:23] LABS: BASO % 0.6 % (0.0-2.0); EOS # 0.4 K/uL (0.0-0.7); EOS % 6.6 % (0.0-4.0); HEMOGLOBIN 11.8 g/dL (12.0-18.0); LYMPH # 0.6 K/uL (1.0-4.3); LYMPH % 9.5 % (20.0-40.0); MEAN CELL VOLUME 81.6 fL (80.0-94.0); MEAN CORPUSCULAR HEMOGLOBIN 26.6 pg (27.0-31.0); MEAN CORPUSCULAR HGB CONC 32.6 g/dL (33.0-37.0); MEAN PLATELET VOLUME 11.8 fL (7.2-11.7); MONO # 0.4 K/uL (0.0-0.8); MONO % 5.8 % (0.0-10.0); NEUT # 5.1 K/uL (1.8-7.0); NEUT % 77.5 % (50.0-75.0); NRBC % 0.1 % (0.0-2.0); PLATELET COUNT 164 K/uL (130-400); RBC 4.45 Mil/uL (4.40-5.90); RED CELL DISTRIBUTION WIDTH 14.7 % (11.5-14.5); WHITE BLOOD COUNT 6.6 K/uL (4.8-10.8)
[2018-04-21 08:41] LABS: ALBUMIN 3.7 g/dL (3.5-5.0); ALT/SGPT 30 U/L (21-72); AST/SGOT 28 U/L (17-59); BLOOD UREA NITROGEN 16 mg/dL (9-20); CALCIUM 9.3 mg/dl (8.6-10.4); GFR NON-AFRICAN AMERICAN > 60
[2018-04-21 09:13] LABS: EOSINOPHIL 5 % (0-4); LYMPHOCYTE 10 % (20-40); MONOCYTE 8 % (0-10); NEUTROPHIL 77 % (50-75); TOTAL CELLS COUNTED 100
[2018-04-21 09:14] LABS: ANISOCYTOSIS SLIGHT; HYPOCHROMIC SLIGHT; PLATELET ESTIMATE NORMAL (NORMAL); POIKILOCYTOSIS SLIGHT
[2018-04-21] MEDS: Docusate-Senna 50 mg-8.6 mg Tab GT SCH ×2 (10:08→18:55)
[2018-04-21] MEDS: Lacosamide 100 MG Tab PO SCH ×2 (10:09→22:05)
[2018-04-21] MEDS: Lactobacillus Acidophilus 500 MU Cap GT SCH ×2 (10:09→18:55)
[2018-04-21] MEDS: levETIRAcetam 100 mg/ml (5ml) Oral Syringe GT SCH ×2 (10:31→18:55)
[2018-04-21] MEDS ORDERED: Acetaminophen 650mg/20.3ml solution UD PO PRN (13:17)
[2018-04-21] MEDS ORDERED: Acetaminophen 650mg/20.3ml solution UD GT PRN (13:18)
--- NOTE | 2018-04-21 16:01 | CP.PCM.DIS ---
Provider - Provider Date of Admission: 04/18/18 16:22 Attending physician: Candy Angeles MD Primary care physician: Dr. Borjas Time Spent in preparation of Discharge (in minutes): 40 Hospital Course - Lab Results Lab Results: Micro Results 04/18/18 15:30 Blood Blood Culture - Preliminary NO GROWTH AFTER 3 DAYS 04/18/18 15:30 Blood Blood Culture - Preliminary NO GROWTH AFTER 3 DAYS 04/18/18 15:45 Urine Urine Culture - Final Proteus Mirabilis Most Recent Lab Values WBC 6.6 K/uL (4.8-10.8) 04/21/18 08:13 RBC 4.45 Mil/uL (4.40-5.90) 04/21/18 08:13 Hgb 11.8 g/dL (12.0-18.0) L 04/21/18 08:13 Hct 36.3 % (35.0-51.0) 04/21/18 08:13 MCV 81.6 fL (80.0-94.0) 04/21/18 08:13 MCH 26.6 pg (27.0-31.0) L 04/21/18 08:13 MCHC 32.6 g/dL (33.0-37.0) L 04/21/18 08:13 RDW 14.7 % (11.5-14.5) H 04/21/18 08:13 Plt Count 164 K/uL (130-400) 04/21/18 08:13 MPV 11.8 fL (7.2-11.7) H 04/21/18 08:13 Neut % (Auto) 77.5 % (50.0-75.0) H 04/21/18 08:13 Lymph % (Auto) 9.5 % (20.0-40.0) L 04/21/18 08:13 [place] % (Auto) 5.8 % (0.0-10.0) 04/21/18 08:13 Eos % (Auto) 6.6 % (0.0-4.0) H 04/21/18 08:13 Baso % (Auto) 0.6 % (0.0-2.0) 04/21/18 08:13 Neut # (Auto) 5.1 K/uL (1.8-7.0) 04/21/18 08:13 Lymph # (Auto) 0.6 K/uL (1.0-4.3) L 04/21/18 08:13 [place] # (Auto) 0.4 K/uL (0.0-0.8) 04/21/18 08:13 Eos # (Auto) 0.4 K/uL (0.0-0.7) 04/21/18 08:13 Baso # (Auto) 0.0 K/uL (0.0-0.2) 04/21/18 08:13 Neutrophils % (Manual) 77 % (50-75) H 04/21/18 08:13 Lymphocytes % (Manual) 10 % (20-40) L 04/21/18 08:13 Monocytes % (Manual) 8 % (0-10) 04/21/18 08:13 Eosinophils % (Manual) 5 % (0-4) H 04/21/18 08:13 Basophils % (Manual) 1 % (0-2) 04/19/18 06:41 Platelet Estimate Normal (NORMAL) 04/21/18 08:13 RBC Morphology Normal 04/18/18 15:09 Hypochromasia (manual) Slight 04/21/18 08:13 Poikilocytosis (manual Slight 04/21/18 08:13 Anisocytosis (manual) Slight 04/21/18 08:13 pO2 53 mm/Hg (30-55) 04/18/18 15:15 VBG pH 7.41 (7.32-7.43) 04/18/18 15:15 VBG pCO2 48 mmHg (40-60) 04/18/18 15:15 VBG HCO3 28.4 mmol/L 04/18/18 15:15 VBG Total CO2 31.9 mmol/L (22-28) H 04/18/18 15:15 VBG O2 Sat (Calc) 92.5 % (40-65) H 04/18/18 15:15 VBG Base Excess 4.8 mmol/L (0.0-2.0) H 04/18/18 15:15 VBG Potassium 3.5 mmol/L (3.6-5.2) L 04/18/18 15:15 Sodium 143.0 mmol/l (132-148) 04/18/18 15:15 Chloride 108.0 mmol/L (98-107) H 04/18/18 15:15 Glucose 116 mg/dl (75-110) H 04/18/18 15:15 Lactate 0.9 mmol/L (0.7-2.1) 04/18/18 15:15 FiO2 21.0 % 04/18/18 15:15 Sodium 142 mmol/L (132-148) 04/21/18 08:13 Potassium 4.1 mmol/L (3.6-5.2) 04/21/18 08:13 Chloride 103 mmol/L (98-107) 04/21/18 08:13 Carbon Dioxide 28 mmol/L (22-30) 04/21/18 08:13 Anion Gap 16 (10-20) 04/21/18 08:13 BUN 16 mg/dL (9-20) 04/21/18 08:13 Creatinine 0.5 mg/dL (0.8-1.5) L 04/21/18 08:13 Est GFR ( Amer) > 60 04/21/18 08:13 Est GFR (Non-Af Amer) > 60 04/21/18 08:13 POC Glucose (mg/dL) 97 mg/dL (65-110) 04/21/18 11:17 Random Glucose 103 mg/dL (75-110) 04/21/18 08:13 Calcium 9.3 mg/dl (8.6-10.4) 04/21/18 08:13 Phosphorus 2.7 mg/dL (2.5-4.5) 04/21/18 08:13 Magnesium 2.1 mg/dL (1.6-2.3) 04/21/18 08:13 Total Bilirubin 0.4 mg/dL (0.2-1.3) 04/21/18 08:13 AST 28 U/L (17-59) 04/21/18 08:13 ALT 30 U/L (21-72) 04/21/18 08:13 Alkaline Phosphatase 141 U/L (38-126) H D 04/21/18 08:13 Total Protein 7.3 g/dL (6.3-8.3) 04/21/18 08:13 Albumin 3.7 g/dL (3.5-5.0) 04/21/18 08:13 Globulin 3.6 gm/dL (2.2-3.9) 04/21/18 08:13 Albumin/Globulin Ratio 1.0 (1.0-2.1) 04/21/18 08:13 Venous Blood Potassium 3.5 mmol/L (3.6-5.2) L 04/18/18 15:15 Urine Color Yellow (YELLOW) 04/18/18 15:45 Urine Clarity Hazy (Clear) 04/18/18 15:45 Urine pH 7.0 (5.0-8.0) 04/18/18 15:45 Ur Specific [place] 1.021 (1.003-1.030) 04/18/18 15:45 Urine Protein 2+ mg/dL (NEGATIVE) H 04/18/18 15:45 Urine Glucose (UA) Normal mg/dL (Normal) 04/18/18 15:45 Urine Ketones Negative mg/dL (NEGATIVE) 04/18/18 15:45 Urine Blood 1+ (NEGATIVE) H 04/18/18 15:45 Urine Nitrate Positive (NEGATIVE) H 04/18/18 15:45 Urine Bilirubin Negative (NEGATIVE) 04/18/18 15:45 Urine Urobilinogen 4.0 mg/dL (0.2-1.0) 04/18/18 15:45 Ur Leukocyte Esterase 3+ Blanca/uL (Negative) H 04/18/18 15:45 Urine WBC (Auto) 231 /hpf (0-5) H 04/18/18 15:45 Urine RBC (Auto) 29 /hpf (0-3) H 04/18/18 15:45 Ur Squamous Epith Cells < 1 /hpf (0-5) 04/18/18 15:45 Urine Bacteria Few (<OCC) H 04/18/18 15:45 Urine Yeast (Budding) Few /hpf (NEGATIVE) H 04/18/18 15:45 Vancomycin Trough < 5.0 ug/mL (5.0-10.0) L 04/20/18 05:54 Influenza Typ A,B (EIA) Negative for flu a/b (NEGATIVE) 04/18/18 15:27 - Hospital Course Hospital Course: On admission: Patient is a 37yo male with PMH respiratory failure, seizure disorder, MS, DM2, aphasia, dysphagia, obstructive uropothy who is aphasic, brought from [facility] to ED for PEG tube replacement. According to [facility] records, pt was examined by Dr. Borjas who found foul smelling liquid draining from G tube site. There, pt was given handley to temporarily replace the tube. Dr. Borjas recommended ED visit for PEG tube replacement. Pt had last PEG tube changed on 02/28/[address] De La Fuente. Pt was examined at bedside. He was sleeping, contracted, and unable to give history at that time. ROS was not obtained. Hospital course: Patient was admitted for PEG tube replacement after patient was found to have drainage from the PEG tube at the nursing. Upon admission, patient was febrile and found to have an urinary tract infection. Urine cultures were positive for Proteus for which patient was treated with Zosyn 3.375g IV every 6 hours for 4 days and patient received one dose of Ertapenem 1g IV daily prior to discharge. Blood cultures were negative for growth. PEG tube was replaced by GI on 04/19/18 who recommended placement of abdominal binder to keep peg tube in place. Tube feeds were resolved. Patient was noted to have bilateral pressure ulcers on heels. Wound care was consulted who changed dressing. Patient was advised to turn and reposition every 2 hours. Given patient's history of seizure disorder, patient was resumed on Keppra and Vimpat dose and placed on seizure and aspiration precautions. Plan was made to discharge patient on additional 7 days of Ertapenem 1g IV with 24 gauge needle in right arm. Imaging: CXR: no active disease This is a brief summary of the hospitalization. For more details, please refer to medical records. Discharge summary: Patient medically stable to be discharged back to [facility]. Patient found to have urinary tract infection. Urine culture positive for Proteus and sensitive to Ertapenem, Amikacin, Meropenem, and Zosyn. Patient's peg tube was replaced on 04/19/[address] De La Fuente. Patient has 24 gauge IV line in right hand. Patient given Ertapenem 1g IV x1 dose here. Patient should take Ertapenem 1g IV for 7 days. Patient to continue all other medications in the halfway. Patient to be sent back to the ED if patient develops fever, foul smelling discharge from PEG tube. Prescription: Ertapenem 1g IV for 7 days. Discharge Exam - Head Exam Head Exam: ATRAUMATIC, NORMOCEPHALIC - ENT Exam ENT Exam: Mucous Membranes Moist - Respiratory Exam Respiratory Exam: Clear to PA & Lateral. absent: Rales, Rhonchi, Wheezes, Respiratory Distress, Stridor - Cardiovascular Exam Cardiovascular Exam: REGULAR RHYTHM, +S1, +S2. absent: Gallop, Rubs, Systolic Murmur - GI/Abdominal Exam GI & Abdominal Exam: Normal Bowel Sounds, Soft Additional comments: Unable to assess tenderness PEG tube functioning well, no evidence of drainage or infection at site. - Exam Additional comments: Marked hypospadia noted with handley in place - Extremities Exam Additional comments: No calf swelling. Good distal pulses. RLE: unstageable ulcer on right heel. Stage 3 ulcer on right lateral malleolus. Stage 2 lateral plantar aspect. black necrotic region between 4th and 5th interdigital space. Left lower extremity: left heel ulcer - Neurological Exam Additional comments: Unable to assess mental status. Eyes are open. - Skin Additional comments: Multiple scars on body, sacral region has healed ulcer with no skin breakdown. Discharge Plan - Follow Up Plan Condition: STABLE Disposition: NURSING FACILITY MEDICAID CERT Instructions: Dehydration, Adult (DC), Urinary Tract Infection, Adult (DC), How to Care for Your PEG Tube , Percutaneous Endoscopic Gastrostomy (DC) Additional Instructions: Patient medically stable to be discharged back to [facility]. Patient found to have urinary tract infection. Urine culture positive for Proteus and sensitive to Ertapenem, Amikacin, Meropenem, and Zosyn. Patient's peg tube was replaced on 04/19/[address] De La Fuente. Patient has 24 gauge IV line in right hand. Patient given Ertapenem 1g IV x1 dose here. Patient should take Ertapenem 1g IV for 7 days. Patient to continue all other medications in the halfway. Patient to be sent back to the ED if patient develops fever, foul smelling discharge from PEG tube. Prescription: Ertapenem 1g IV for 7 days.
[2018-04-21 17:03] VITALS: BP 110/78; TEMP 99.5; O2SAT 95
[2018-04-21 17:15] VITALS: PULSE 73
== END 2018-04-21 23:55 | DRG 393 ==
LOC: C.ER 14:00 → C.9E 16:22 → C.6T 16:41
PROVIDERS: ADMIT Internal Medicine; ATTEND Internal Medicine
PROC: 02HV33Z Insertion of Infusion Device into Superior Vena Cava, Percutaneous Approach (ICD-10-PCS; 2018-04-18)
PROC: 0D20XUZ Change Feeding Device in Upper Intestinal Tract, External Approach (ICD-10-PCS; principal; 2018-04-19)
PROC: 3E0234Z Introduction of Serum, Toxoid and Vaccine into Muscle, Percutaneous Approach (ICD-10-PCS; 2018-04-20)
DX: K94.23 Gastrostomy malfunction (principal); L89.513 Pressure ulcer of right ankle, stage 3; L89.624 Pressure ulcer of left heel, stage 4; N39.0 Urinary tract infection, site not specified; R47.01 Aphasia; Y83.3 Surgical operation with formation of external stoma as the cause of abnormal reaction of the patient, or of later complication, without mention of misadventure at the time of the procedure; G40.909 Epilepsy, unspecified, not intractable, without status epilepticus; E11.9 Type 2 diabetes mellitus without complications; G35 Multiple sclerosis; R13.10 Dysphagia, unspecified; Z74.01 Bed confinement status; F39 Unspecified mood [affective] disorder; F32.9 Major depressive disorder, single episode, unspecified; B96.4 Proteus (mirabilis) (morganii) as the cause of diseases classified elsewhere; K21.9 Gastro-esophageal reflux disease without esophagitis; Z51.5 Encounter for palliative care; L89.619 Pressure ulcer of right heel, unspecified stage; L89.892 Pressure ulcer of other site, stage 2; Z23 Encounter for immunization

== ENCOUNTER 2018-06-22 16:22 | Inpatient (IN) | payer MEDICARE, MEDICAID ==
[2018-06-22] MEDS ORDERED: Iohexol 240 (50 ml) PO STA (17:49)
--- NOTE | 2018-06-22 18:12 | C.PDOC ---
History Of Present Illness 37 years old male, non-verbal, brought to ED from group home for complaints of peg tube leakage and mouth function. care home notes reviewed. Hx limited due to patient's condition. <Kayla Corbett - Last Filed: 06/22/18 18:43> History Per: EMS History/Exam Limitations: clinical condition Onset/Duration Of Symptoms: Hrs Current Symptoms Are (Timing): Still Present Radiation Of Pain To:: None Last Bowel Movement: Today Recent travel outside of the [place]: No <Kayla Corbett - Last Filed: 06/22/18 18:43> <Ross Wright - Last Filed: 06/22/18 21:38> Time Seen by Provider: 06/22/18 16:51 Chief Complaint (Nursing): GI Problem Past Medical History Reviewed: Historical Data, Nursing Documentation, Vital Signs Vital Signs: Last Vital Signs Temp 99.0 F 06/22/18 16:48 Pulse 48 L 06/22/18 16:48 Resp 22 06/22/18 16:48 BP 102/63 06/22/18 16:48 Pulse Ox 98 06/22/18 16:48 - Medical History PMH: Depression (PER CHART MOOD DISORDER DUE TO DX/CONDITION), Diabetes, Multiple Sclerosis, Seizures Denies: Chronic Kidney Disease Surgical History: Endoscopy - [facility] Procedures CHANGE FEEDING DEVICE IN UP INTEST TRACT, INFORMATION CLERK BROKERAGE APPROACH (04/18/18) INSERTION OF INFUSION DEV INTO SUP VENA CAVA, PERC APPROACH (04/18/18) INTRODUCTION OF SERUM/TOX/VACCINE INTO MUSCLE, PERC APPROACH (04/18/18) Family History: States: Unknown Family Hx - Social History Hx Alcohol Use: No Hx Substance Use: No <Kayla Corbett - Last Filed: 06/22/18 18:43> Vital Signs: Last Vital Signs Temp 99.0 F 06/22/18 16:48 Pulse 75 06/22/18 20:33 Resp 16 06/22/18 20:33 BP 115/09 L 06/22/18 20:33 Pulse Ox 100 06/22/18 20:33 - [facility] Procedures CHANGE FEEDING DEVICE IN UP INTEST TRACT, INFORMATION CLERK BROKERAGE APPROACH (04/18/18) INSERTION OF INFUSION DEV INTO SUP VENA CAVA, PERC APPROACH (04/18/18) INTRODUCTION OF SERUM/TOX/VACCINE INTO MUSCLE, PERC APPROACH (04/18/18) <Ross Wright - Last Filed: 06/22/18 21:38> Review Of Systems Review Of Systems: ROS cannot be obtained secondary to pt's inabilty to answer questions. (Due to clinical condition) <Kayla Corbett - Last Filed: 06/22/18 18:43> Physical Exam - Physical Exam Appears: Non-toxic, Chronically Ill Skin: Normal Color, Warm, Dry, No Rash, Other (No skin ulcers or breakdown) Head: Atraumatic, Normacephalic Eye(s): bilateral: Normal Inspection, PERRL, EOMI Oral Mucosa: Moist Neck: Supple Chest: Symmetrical, No Tenderness Cardiovascular: Rhythm Regular, No Murmur Respiratory: Normal Breath Sounds, No Rales, No Rhonchi, No Wheezing Gastrointestinal/Abdominal: Soft, No Tenderness, No Guarding, No Hernia, Other (Peg tube in place with some mild erythema around it. ) Extremity: No Swelling, Other (Positive contractions in extremities ) Neurological/Psych: Other (No focal deficits. Pt is non-verbal at baseline. Patient is at baseline mental status) <Kayla Corbett - Last Filed: 06/22/18 18:43> ED Course And Treatment - Laboratory Results Result Diagrams: 06/22/18 18:02 06/22/18 18:02 O2 Sat by Pulse Oximetry: 98 (RA) Pulse Ox Interpretation: Normal <Kayla Corbett - Last Filed: 06/22/18 18:43> - Laboratory Results Result Diagrams: 06/22/18 18:02 06/22/18 18:02 <Ross Wright - Last Filed: 06/22/18 21:38> Medical Decision Making Medical Decision Making: Plan: * Blood work * CT Abdomen/Pelvis Progress: Spoke with GI fellow Moses for evaluation of patient at bed side. States pos sible infection as some redness around stoma requesting a CT -Scan. Also Discussed case with Dr. Espinosa. He states he will consult on patient. <Kayla Corbett - Last Filed: 06/22/18 18:43> Disposition - Disposition Disposition Time: 18:44 <Kayla Corbett - Last Filed: 06/22/18 18:43> Discussed With : Santi Nieto Comment: accepted the pt on his service and took over the care at 9:37 PM Doctor Will See Patient In The: ED Counseled Patient/Family Regarding: Studies Performed, Diagnosis - POA Present On Arrival: None <Ross Wright - Last Filed: 06/22/18 21:38> - Disposition Disposition: HOSPITALIZED Condition: FAIR Forms: [facility] (Sami) - Clinical Impression Clinical Impression: PEG tube malfunction - PA / MANAGER CAREER / Resident Statement MD/DO has reviewed & agrees with the documentation as recorded. - Scribe Statement The provider has reviewed the documentation as recorded by the Radhaibe Mariam Parra All medical record entries made by the Scribe were at my direction and personally dictated by me. I have reviewed the chart and agree that the record accurately reflects my personal performance of the history, physical exam, medical decision making, and the department course for this patient. I have also personally directed, reviewed, and agree with the discharge instructions and disposition. <Kayla Corbett C - Last Filed: 06/22/18 18:43> Physician Patient Turnover Patient Signed Over To: Ross Wright Handoff Comments: Pending CT scan and surgical evaluation <Kayla Corbett C - Last Filed: 06/22/18 18:43> Decision To Admit <Kayla Corbett C - Last Filed: 06/22/18 18:43> - Pt Status Changed To: Hospital Disposition Of: Inpatient - Admit Certification Admit to Inpatient:: After my assessment, the patient will require hospitalization for at least two midnights. This is because of the severity of symptoms shown, intensity of services needed, and/or the medical risk in this patient being treated as an outpatient. - InPatient: Physician Admission Certification:: After my assessment, the patient will require hospitalization for at least two midnights. This is because of the severity of symptoms shown, intensity of services needed, and/or the medical risk in this patient being treated as an outpatient. - . Bed Request Type: Regular Admitting Physician: Santi Nieto <Ross Wright - Last Filed: 06/22/18 21:38> - . Patient Diagnosis: PEG tube malfunction
[2018-06-22] MEDS ORDERED: Iodixanol 320 MG/ML 100 ML BOTTLE IV ONE (18:13)
[2018-06-22 18:15] LABS: BASO % 0.8 % (0.0-2.0); EOS # 0.3 K/uL (0.0-0.7); EOS % 6.3 % (0.0-4.0); HEMOGLOBIN 12.1 g/dL (12.0-18.0); LYMPH # 1.2 K/uL (1.0-4.3); LYMPH % 23.7 % (20.0-40.0); MEAN CELL VOLUME 81.7 fL (80.0-94.0); MEAN CORPUSCULAR HEMOGLOBIN 25.8 pg (27.0-31.0); MEAN CORPUSCULAR HGB CONC 31.5 g/dL (33.0-37.0); MEAN PLATELET VOLUME 11.1 fL (7.2-11.7); MONO # 0.4 K/uL (0.0-0.8); MONO % 8.1 % (0.0-10.0); NEUT # 3.2 K/uL (1.8-7.0); NEUT % 61.1 % (50.0-75.0); NRBC % 0.1 % (0.0-2.0); RBC 4.7 Mil/uL (4.40-5.90); WHITE BLOOD COUNT 5.2 K/uL (4.8-10.8)
[2018-06-22 18:18] LABS: ALBUMIN 4.1 g/dL (3.5-5.0); ALT/SGPT 24 U/L (21-72); AST/SGOT 19 U/L (17-59); BLOOD UREA NITROGEN 21 mg/dL (9-20); CALCIUM 8.8 mg/dl (8.6-10.4); GFR NON-AFRICAN AMERICAN > 60; LIPASE 54 U/L (23-300)
[2018-06-22 22:49] VITALS: RESP 20
[2018-06-23 00:13] VITALS: O2SAT 97
[2018-06-23] MEDS: Sodium Chloride 0.9% 1,000 ML IV SCH ×2 (02:15→12:30)
--- NOTE | 2018-06-23 02:18 | CP.PCM.HP ---
<Renan Perez - Last Filed: 06/23/18 06:55> History of Present Illness - History of Present Illness History of Present Illness: CC peg tube malfunctioning HPI: Patient is a 37 year old male with history of respiratory failure, seizure disorder, MS, DM2, aphasia, dysphagia, obstructive uropothy who is aphasic, brought from [facility] to ED for PEG tube replacement. Patient has had peg tube changed recently on 04/19/18 and 02/28/18. Patient himself is aphasic, sleeping, contracted and unable to provide any history. During his last admission in March 2018, he was sent in for foul discharge from the peg tube site, found to have urinary tract infection positive for Proteus and sent back with 7 day dose of Ertapenem IV. Unable to obtain review of system. Family not present at [facility]. PMD: Dr. Borjas PMH: respiratory failure, seizure disorder, MS, DM2, aphasia, dysphagia, ob structive uropothy who is aphasic PSH: endoscopy Home meds: Keppra 1000mg GT BID, Omeprazole, Ativan 0.5mg GT BID, Fentanyl 1 each TD Q2day, Eliquis 5mg GT BID, Duonebs 1 Q6 PRN, Tylenol 650mg PRN Allergies: NKDA Social hx: no reported tobacco, alcohol or drug use as per prior chart Family hx: unable to obtain Present on Admission - Present on Admission Any Indicators Present on Admission: No Review of Systems - Review of Systems Review of Systems: Unable to obtain Past Patient History - Past Medical History & Family History Past Medical History?: Yes - Past Social History Smoking Status: Unknown If Ever Smoked - CARDIAC Hx Cardiac Disorders: No - PULMONARY Hx Respiratory Disorders: Yes Other/Comment: HX RESPIRATORY FAILURE HX TRACH - NEUROLOGICAL Hx Multiple Sclerosis: Yes Hx Seizures: Yes - HEENT Hx HEENT Problems: No - RENAL Hx Chronic Kidney Disease: No - ENDOCRINE/METABOLIC Hx Endocrine Disorders: Yes Hx Diabetes Mellitus Type 2: Yes - HEMATOLOGICAL/ONCOLOGICAL Hx Blood Disorders: No - INTEGUMENTARY Hx Dermatological Problems: Yes Other/Comment: PRESSURE ULCERS - MUSCULOSKELETAL/RHEUMATOLOGICAL Hx Musculoskeletal Disorders: Yes Hx Falls: No Other/Comment: CONTRACTED - GASTROINTESTINAL Hx Gastrointestinal Disorders: Yes Hx Gastroesophageal Reflux: Yes Other/Comment: DYSPHAGIA PEG - GENITOURINARY/GYNECOLOGICAL Hx Genitourinary Disorders: No - PSYCHIATRIC Hx Depression: Yes (PER CHART MOOD DISORDER DUE TO DX/CONDITION) Hx Substance Use: No - SURGICAL HISTORY Hx Surgeries: Yes Other/Comment: PEG TUBE INSERTION, TRACHEOSTOMY - ANESTHESIA Hx Anesthesia: Yes Hx Anesthesia Reactions: No Hx Malignant Hyperthermia: No Meds Allergies/Adverse Reactions: Allergies Allergy/AdvReac Type Severity Reaction Status Date / Time No Known Allergies Allergy Verified 06/22/18 16:25 Physical Exam - Constitutional Additional comments: Patient has contracted upper and lower extremities, opens eyes, doesn't speak. - Head Exam Head Exam: ATRAUMATIC, NORMOCEPHALIC - ENT Exam ENT Exam: Mucous Membranes Moist Additional comments: Old trach site seen - Respiratory Exam Respiratory Exam: Clear to Auscultation Bilateral, NORMAL BREATHING PATTERN - Cardiovascular Exam Cardiovascular Exam: REGULAR RHYTHM, +S1, +S2. absent: Gallop, Rubs, Systolic Murmur - GI/Abdominal Exam GI & Abdominal Exam: Soft. absent: Distended, Firm Additional comments: Peg tube site in left abdomen with peg tube dislodged - Exam Additional comments: Marked hypospadia from medial to distal penis - Extremities Exam Extremities exam: Positive for: pedal pulses present. Negative for: pedal edema - Neurological Exam Additional comments: aphasic, opens eyes, contracted upper and lower extremities - Psychiatric Exam Additional comments: Unable to assess Results - Vital Signs Recent Vital Signs: Last Vital Signs Temp 98.2 F 06/22/18 23:30 Pulse 106 H 06/22/18 23:30 Resp 20 06/22/18 23:30 BP 119/69 06/22/18 23:30 Pulse Ox 97 06/22/18 23:30 - Labs Result Diagrams: 06/22/18 18:02 06/22/18 18:02 Labs: Laboratory Results - last 24 hr 06/22/18 06/22/18 18:02 18:02 WBC 5.2 RBC 4.70 Hgb 12.1 Hct 38.4 MCV 81.7 MCH 25.8 L MCHC 31.5 L RDW 15.0 H Plt Count 198 MPV 11.1 Neut % (Auto) 61.1 Lymph % (Auto) 23.7 [place] % (Auto) 8.1 Eos % (Auto) 6.3 H Baso % (Auto) 0.8 Neut # (Auto) 3.2 Lymph # (Auto) 1.2 [place] # (Auto) 0.4 Eos # (Auto) 0.3 Baso # (Auto) 0.0 Sodium 142 Potassium 3.7 Chloride 107 Carbon Dioxide 29 Anion Gap 10 BUN 21 H Creatinine 0.5 L Est GFR ( Amer) > 60 Est GFR (Non-Af Amer) > 60 Random Glucose 94 Calcium 8.8 Total Bilirubin 0.4 AST 19 ALT 24 Alkaline Phosphatase 114 Total Protein 8.2 Albumin 4.1 Globulin 4.1 H Albumin/Globulin Ratio 1.0 Lipase 54 Assessment & Plan - Assessment and Plan (Free Text) Assessment: 37 year old male with history of respiratory failure, seizure disorder, MS, DM2, aphasia, dysphagia, obstructive uropothy who is aphasic who was [facility] for [facility] tube dysfunction. Plan: Peg tube dysfunction GI Dr. Espinosa consulted NS IV fluids Abd CT: PEG tube and balloon catheter are seen within the subcutaneous soft tissues about he left upper quadrant of the abdomen anteriorly outside the abdomen and not within the stomach. Mild inflammatory changes about the balloon catheter and PEG tube. Oval radioopaque density measuring 2.6 x 3.9 cm on the posterior bladder wall for which clinical correlation is advised. NPO Hx of seizure disorder Keppra IV 1000mg BID Type 2 DM On Low dose ISS hypoglycemic treatment protocol. Hx of MS/Dysphagia/aphasia Patient is bedbound, nonexpressive Full code Discussion of goals of care with Pallative care results in patient resulting in full code Turn every 2 hours Hx of Obstructive uropathy Noticable hypospadia Iniguez as needed Hx of recent UTI with proteus PPX Eliquis held for possible procedure in AM. SCDs. Case discussed with Dr. Gerson Perez, PGY1 <Santi Nieto P - Last Filed: 06/23/18 08:16> Results - Vital Signs Recent Vital Signs: Last Vital Signs Temp 98.2 F 06/22/18 23:30 Pulse 106 H 06/22/18 23:30 Resp 20 06/22/18 23:30 BP 119/69 06/22/18 23:30 Pulse Ox 97 06/22/18 23:30 - Labs Result Diagrams: 06/22/18 18:02 06/22/18 18:02 Labs: Laboratory Results - last 24 hr 06/22/18 06/22/1806/23/18 18:02 18:02 06:05 WBC 5.2 RBC 4.70 Hgb 12.1 Hct 38.4 MCV 81.7 MCH 25.8 L MCHC 31.5 L RDW 15.0 H Plt Count 198 MPV 11.1 Neut % (Auto) 61.1 Lymph % (Auto) 23.7 [place] % (Auto) 8.1 Eos % (Auto) 6.3 H Baso % (Auto) 0.8 Neut # (Auto) 3.2 Lymph # (Auto) 1.2 [place] # (Auto) 0.4 Eos # (Auto) 0.3 Baso # (Auto) 0.0 Sodium 142 Potassium 3.7 Chloride 107 Carbon Dioxide 29 Anion Gap 10 BUN 21 H Creatinine 0.5 L Est GFR ( Amer) > 60 Est GFR (Non-Af Amer) > 60 POC Glucose (mg/dL) 99 Random Glucose 94 Calcium 8.8 Total Bilirubin 0.4 AST 19 ALT 24 Alkaline Phosphatase 114 Total Protein 8.2 Albumin 4.1 Globulin 4.1 H Albumin/Globulin Ratio 1.0 Lipase 54 Attending/Attestation - Attestation I have personally seen and examined this patient.: Yes I have fully participated in the care of the patient.: Yes I have reviewed all pertinent clinical information: Yes Notes (Text): 06/23/18 08:12 * Recurrent PEG dislodgement * Bed bound, contractues, noncommunicative * H/o seizure * Hypospidias, blader stone, h/o recent uti Plan * PEG reinsertion, difficult endoscopy, due to contractures * Keppra through iv * IVF * Gi consulted, may need surgical intervention * See orders for detail.
[2018-06-23] MEDS: levETIRAcetam 1,000 MG in Sodium Chloride 0.9% 100 ML IVPB SCH ×2 (03:15→13:36)
[2018-06-23] MEDS ORDERED: Glucagon Recombinant 1 mg Inj IM PRN (06:18)
[2018-06-23] MEDS ORDERED: Dextrose 50% SYRINGE Inj (50 ml) IV PRN (06:18)
[2018-06-23] MEDS: (Novolin R) Insulin Human Regular 100 units/ml vial SC SCH ×3 (08:24→16:32)
[2018-06-23 08:30] VITALS: BP 110/62
[2018-06-23 11:47] LABS: BASO # 0.1 K/uL (0.0-0.2); BASO % 1.1 % (0.0-2.0); EOS # 0.2 K/uL (0.0-0.7); EOS % 3.5 % (0.0-4.0); HEMOGLOBIN 13.3 g/dL (12.0-18.0); LYMPH # 0.9 K/uL (1.0-4.3); LYMPH % 18.8 % (20.0-40.0); MEAN CELL VOLUME 81.8 fL (80.0-94.0); MEAN CORPUSCULAR HGB CONC 31.9 g/dL (33.0-37.0); MEAN PLATELET VOLUME 11.3 fL (7.2-11.7); MONO # 0.4 K/uL (0.0-0.8); MONO % 8.2 % (0.0-10.0); NEUT # 3.1 K/uL (1.8-7.0); NEUT % 68.4 % (50.0-75.0); NRBC % 0.2 % (0.0-2.0); RBC 5.11 Mil/uL (4.40-5.90); RED CELL DISTRIBUTION WIDTH 15.1 % (11.5-14.5); WHITE BLOOD COUNT 4.6 K/uL (4.8-10.8)
--- NOTE | 2018-06-23 12:02 | CT ---
Date of service: 2018-06-22 19:02:50 CT abdomen and pelvis with IV contrast Indication: PEG tube infection Technique: Contiguous axial images of the abdomen and pelvis. Coronal and Sagittal reformats generated and reviewed. Contrast: 100 mL Visipaque [address] exam was performed using 1 or more of the following dose reduction techniques: Automated exposure control, adjustment of the MAA and/or kV according to patient size, and/or use of iterative reconstruction technique. Radiation dose: Total exam DLP = 939.18 MGy-cm. Comparison: None available Findings: Mild bibasilar atelectasis. No visible pleural effusion or pneumothorax. The liver, spleen, kidneys, pancreas, adrenal glands, and gallbladder appear unremarkable. Peg tube and balloon catheter appear within the subcutaneous soft tissues of the left upper quadrant. The balloon catheter appears outside of the abdomen and not within the stomach. Thin linear radiopaque density possibly contrast material extends from the region of the balloon catheter through the anterior abdominal wall to the anterior contour of the stomach rather than within the gastric lumen. Mild inflammatory stranding within the soft tissues adjacent to the balloon catheter. The bowel loops appear within normal limits of caliber without evidence of intestinal obstruction. No secondary signs of acute appendicitis. Moderate constipation. There is no definite free air. Oval radiopaque density within the urinary bladder measures approximately 2.6 x 3.9 cm and is noted along the posterior bladder wall, possibly large bladder calculus. Visualized osseous structures appear unremarkable. Impression: Peg tube and balloon catheter appear within the subcutaneous soft tissues of the left upper quadrant. The balloon catheter appears outside of the abdomen and not within the stomach. Thin linear radiopaque density possibly contrast material extends from the region of the balloon catheter through the anterior abdominal wall to the anterior contour of the stomach rather than within the gastric lumen. Mild inflammatory stranding within the soft tissues adjacent to the balloon catheter. Oval radiopaque density within the urinary bladder measures approximately 2.6 x 3.9 cm and is noted along the posterior bladder wall, possibly large bladder calculus. Moderate constipation. Preliminary impression was provided by [employer].
[2018-06-23 12:09] LABS: ALBUMIN 4.4 g/dL (3.5-5.0); ALT/SGPT 18 U/L (21-72); AST/SGOT 23 U/L (17-59); BLOOD UREA NITROGEN 22 mg/dL (9-20); CALCIUM 9.4 mg/dl (8.6-10.4); GFR NON-AFRICAN AMERICAN > 60
--- NOTE | 2018-06-23 13:03 | CP.PCM.CON ---
<ChelaMoses - Last Filed: 06/23/18 13:33> History of Present Illness - History of Present Illness History of Present Illness: PGY-4 GI Fellow Consult Note The following obtained from chart review due to patient clinical condition. Pt is a 37 year old male with history of respiratory failure, seizure disorder, MS, DM2, aphasia, dysphagia, obstructive uropothy who is aphasic, brought from [facility] to ED for PEG tube "leaking." Patient has had PEG tube changed on 04/19/18 and 02/28/18. No family or caregivers at bedside to provide any history. CT scan in the ED revealed PEG dislodgement with balloon outside abd wall within subcutaneous tissue. GI called for further evaluation. Unable to obtain ROS due to clinical condition PMH: Respiratory failure, seizure disorder, aphasic, MS, DM2, aphasia, dysphagia, obstructive uropothy PSH: EGD for PEG placement Home meds: Reviewed in chart SocHx: no reported tobacco, alcohol or drug use as per prior chart FamHx: unable to obtain Allergies: NKDA Past Patient History - Past Medical History & Family History Past Medical History?: Yes - Past Social History Smoking Status: Unknown If Ever Smoked - CARDIAC Hx Cardiac Disorders: No - PULMONARY Hx Respiratory Disorders: Yes Other/Comment: HX RESPIRATORY FAILURE HX TRACH - NEUROLOGICAL Hx Multiple Sclerosis: Yes Hx Seizures: Yes - HEENT Hx HEENT Problems: No - RENAL Hx Chronic Kidney Disease: No - ENDOCRINE/METABOLIC Hx Endocrine Disorders: Yes Hx Diabetes Mellitus Type 2: Yes - HEMATOLOGICAL/ONCOLOGICAL Hx Blood Disorders: No - INTEGUMENTARY Hx Dermatological Problems: Yes Other/Comment: PRESSURE ULCERS - MUSCULOSKELETAL/RHEUMATOLOGICAL Hx Musculoskeletal Disorders: Yes Hx Falls: No Other/Comment: CONTRACTED - GASTROINTESTINAL Hx Gastrointestinal Disorders: Yes Hx Gastroesophageal Reflux: Yes Other/Comment: DYSPHAGIA PEG - GENITOURINARY/GYNECOLOGICAL Hx Genitourinary Disorders: No - PSYCHIATRIC Hx Depression: Yes (PER CHART MOOD DISORDER DUE TO DX/CONDITION) Hx Substance Use: No - SURGICAL HISTORY Hx Surgeries: Yes Other/Comment: PEG TUBE INSERTION, TRACHEOSTOMY - ANESTHESIA Hx Anesthesia: Yes Hx Anesthesia Reactions: No Hx Malignant Hyperthermia: No Meds Allergies/Adverse Reactions: Allergies Allergy/AdvReac Type Severity Reaction Status Date / Time No Known Allergies Allergy Verified 06/22/18 16:25 - Medications Medications: Current Medications Dextrose (Dextrose 50% Inj) 0 ml IV STAT PRN; Protocol PRN Reason: Hypoglycemia Protocol Dextrose (Glutose 15) 0 gm PO ONCE PRN; Protocol PRN Reason: Hypoglycemia Protocol Glucagon (Glucagen Diagnostic Kit) 0 mg IM STAT PRN; Protocol PRN Reason: Hypoglycemia Protocol Sodium Chloride (Sodium Chloride 0.9%) 1,000 mls @ 100 mls/hr IV .Q10H MARILU Last Admin: 06/23/18 02:15 Dose: 100 mls/hr Levetiracetam 1,000 mg/ Sodium (Chloride) 110 mls @ 420 mls/hr IVPB Q12H MARILU Last Admin: 06/23/18 03:15 Dose: 420 mls/hr Dextrose (Dextrose 5% In Water 1000 Ml) 1,000 mls @ 0 mls/hr IV .Q0M PRN; Protocol PRN Reason: Hypoglycemia Protocol Insulin Human Regular (Novolin R) 0 unit SC ACHS MARILU; Protocol Last Admin: 06/23/18 11:48 Dose: Not Given Physical Exam - Constitutional Appears: Cachectic, Chronically Ill - Head Exam Head Exam: ATRAUMATIC Additional comments: temporal wasting - Eye Exam Eye Exam: Conjunctival injection - ENT Exam ENT Exam: Mucous Membranes Dry. absent: Mucous Membranes Moist - Respiratory Exam Respiratory Exam: NORMAL BREATHING PATTERN. absent: Accessory Muscle Use - Cardiovascular Exam Cardiovascular Exam: REGULAR RHYTHM, RRR - GI/Abdominal Exam GI & Abdominal Exam: Firm, Normal Bowel Sounds. absent: Bruit, Diminished Bowel Sounds, Distended, Guarding, Hernia, Mass, Organomegaly, Pulsatile Mass, Soft, Tenderness Additional comments: PEG in place with round mass subcutaneously (balloon), pink tissue surrounding PEG site - Rectal Exam Rectal Exam: Deferred - Extremities Exam Extremities exam: Positive for: pedal edema Additional comments: contracted extremities - Neurological Exam Additional comments: Non verbal, not interactive - Skin Skin Exam: Dry, Normal Color Results - Vital Signs Recent Vital Signs: Last Vital Signs Temp 98.4 F 06/23/18 07:30 Pulse 72 06/23/18 07:30 Resp 20 06/23/18 07:30 BP 110/62 06/23/18 07:30 Pulse Ox 97 06/23/18 07:30 - Labs Result Diagrams: 06/23/18 11:32 06/23/18 11:32 Labs: Laboratory Results - last 24 hr 06/22/18 06/22/18 06/23/18 18:02 18:02 06:05 WBC 5.2 RBC 4.70 Hgb 12.1 Hct 38.4 MCV 81.7 MCH 25.8 L MCHC 31.5 L RDW 15.0 H Plt Count 198 MPV 11.1 Neut % (Auto) 61.1 Lymph % (Auto) 23.7 [place] % (Auto) 8.1 Eos % (Auto) 6.3 H Baso % (Auto) 0.8 Neut # (Auto) 3.2 Lymph # (Auto) 1.2 [place] # (Auto) 0.4 Eos # (Auto) 0.3 Baso # (Auto) 0.0 Sodium 142 Potassium 3.7 Chloride 107 Carbon Dioxide 29 Anion Gap 10 BUN 21 H Creatinine 0.5 L Est GFR ( Amer) > 60 Est GFR (Non-Af Amer) > 60 POC Glucose (mg/dL) 99 Random Glucose 94 Calcium 8.8 Phosphorus Magnesium Total Bilirubin 0.4 AST 19 ALT 24 Alkaline Phosphatase 114 Total Protein 8.2 Albumin 4.1 Globulin 4.1 H Albumin/Globulin Ratio 1.0 Lipase 54 06/23/18 06/23/18 06/23/18 11:22 11:32 11:32 WBC 4.6 L RBC 5.11 Hgb 13.3 Hct 41.8 MCV 81.8 MCH 26.0 L MCHC 31.9 L RDW 15.1 H Plt Count 220 MPV 11.3 Neut % (Auto) 68.4 Lymph % (Auto) 18.8 L [place] % (Auto) 8.2 Eos % (Auto) 3.5 Baso % (Auto) 1.1 Neut # (Auto) 3.1 Lymph # (Auto) 0.9 L [place] # (Auto) 0.4 Eos # (Auto) 0.2 Baso # (Auto) 0.1 Sodium 145 Potassium 3.9 Chloride 108 H Carbon Dioxide 28 Anion Gap 13 BUN 22 H Creatinine 0.6 L Est GFR ( Amer) > 60 Est GFR (Non-Af Amer) > 60 POC Glucose (mg/dL) 85 Random Glucose 74 L D Calcium 9.4 Phosphorus 3.0 Magnesium 2.2 Total Bilirubin 0.5 AST 23 ALT 18 L D Alkaline Phosphatase 118 Total Protein 8.7 H Albumin 4.4 Globulin 4.2 H Albumin/Globulin Ratio 1.0 Lipase Assessment & Plan - Assessment and Plan (Free Text) Assessment: 37 yo BM with MS, h/o respiratory failure, aphasic, chronic PEG presenting with PEG "leaking." # PEG dislodgement: Balloon withing subQ tissue, outside of abd wall. H/o multiple dislodgements. Plan: - PEG exchange at bedside with 20 F replacement kit - Will confirm placement with plain film with gastrograffin - If not in stomach, will need Surgery consult for G tube placement - Start Vancomycin and Pip/Tazo for abd wall infection - Consider ID consult - Wound care consult Pt seen and examined with Dr. De La Fuente; please see attestation for further recs/changes Moses York, PGY-4 <Ayo De La Fuente - Last Filed: 06/23/18 14:40> Meds - Medications Medications: Current Medications Dextrose (Dextrose 50% Inj) 0 ml IV STAT PRN; Protocol PRN Reason: Hypoglycemia Protocol Dextrose (Glutose 15) 0 gm PO ONCE PRN; Protocol PRN Reason: Hypoglycemia Protocol Glucagon (Glucagen Diagnostic Kit) 0 mg IM STAT PRN; Protocol PRN Reason: Hypoglycemia Protocol Sodium Chloride (Sodium Chloride 0.9%) 1,000 mls @ 100 mls/hr IV .Q10H MARILU Last Admin: 06/23/18 12:30 Dose: 100 mls/hr Levetiracetam 1,000 mg/ Sodium (Chloride) 110 mls @ 420 mls/hr IVPB Q12H MARILU Last Admin: 06/23/18 13:36 Dose: 420 mls/hr Dextrose (Dextrose 5% In Water 1000 Ml) 1,000 mls @ 0 mls/hr IV .Q0M PRN; Protocol PRN Reason: Hypoglycemia Protocol Insulin Human Regular (Novolin R) 0 unit SC ACHS MARILU; Protocol Last Admin: 06/23/18 11:48 Dose: Not Given Sterile Water (Sterile Water Irrigation 1000 Ml) 30 ml AL Q8 MARILU Results - Vital Signs Recent Vital Signs: Last Vital Signs Temp 98.4 F 06/23/18 07:30 Pulse 72 06/23/18 07:30 Resp 20 06/23/18 07:30 BP 110/62 06/23/18 07:30 Pulse Ox 97 06/23/18 07:30 - Labs Result Diagrams: 06/23/18 11:32 06/23/18 11:32 Labs: Laboratory Results - last 24 hr 06/22/18 06/22/18 06/23/18 18:02 18:02 06:05 WBC 5.2 RBC 4.70 Hgb 12.1 Hct 38.4 MCV 81.7 MCH 25.8 L MCHC 31.5 L RDW 15.0 H Plt Count 198 MPV 11.1 Neut % (Auto) 61.1 Lymph % (Auto) 23.7 [place] % (Auto) 8.1 Eos % (Auto) 6.3 H Baso % (Auto) 0.8 Neut # (Auto) 3.2 Lymph # (Auto) 1.2 [place] # (Auto) 0.4 Eos # (Auto) 0.3 Baso # (Auto) 0.0 Sodium 142 Potassium 3.7 Chloride 107 Carbon Dioxide 29 Anion Gap 10 BUN 21 H Creatinine 0.5 L Est GFR ( Amer) > 60 Est GFR (Non-Af Amer) > 60 POC Glucose (mg/dL) 99 Random Glucose 94 Calcium 8.8 Phosphorus Magnesium Total Bilirubin 0.4 AST 19 ALT 24 Alkaline Phosphatase 114 Total Protein 8.2 Albumin 4.1 Globulin 4.1 H Albumin/Globulin Ratio 1.0 Lipase 54 06/23/18 06/23/18 06/23/18 11:22 11:32 11:32 WBC 4.6 L RBC 5.11 Hgb 13.3 Hct 41.8 MCV 81.8 MCH 26.0 L MCHC 31.9 L RDW 15.1 H Plt Count 220 MPV 11.3 Neut % (Auto) 68.4 Lymph % (Auto) 18.8 L [place] % (Auto) 8.2 Eos % (Auto) 3.5 Baso % (Auto) 1.1 Neut # (Auto) 3.1 Lymph # (Auto) 0.9 L [place] # (Auto) 0.4 Eos # (Auto) 0.2 Baso # (Auto) 0.1 Sodium 145 Potassium 3.9 Chloride 108 H Carbon Dioxide 28 Anion Gap 13 BUN 22 H Creatinine 0.6 L Est GFR ( Amer) > 60 Est GFR (Non-Af Amer) > 60 POC Glucose (mg/dL) 85 Random Glucose 74 L D Calcium 9.4 Phosphorus 3.0 Magnesium 2.2 Total Bilirubin 0.5 AST 23 ALT 18 L D Alkaline Phosphatase 118 Total Protein 8.7 H Albumin 4.4 Globulin 4.2 H Albumin/Globulin Ratio 1.0 Lipase Attending/Attestation - Attestation I have personally seen and examined this patient.: Yes I have fully participated in the care of the patient.: Yes I have reviewed all pertinent clinical information: Yes Notes (Text): 06/23/18 14:33 I have seen and examined patient with GI fellow. Agree with above documentation with the following additions. In brief, this is a 37 year old male with history of seizure disorder, MS, aphasia, bedbound, obstructive uropathy who was sent from senior care for dislodged gastrostomy tube. Patient is non-verbal at baseline and not able to participate in conversation. Additional information obtained via chart review and discussion with nursing staff. Unclear when tube became dislodged but there is no reported abdominal pain, nausea, vomiting, fever/chills. Seizure disorder MS Aphasia, bedbound Gastrostomy tube dislodgement CT imaging reviewed by me showing inflated balloon outside gastric lumen in subcutaneous tissue Procedure note: Using sterile technique, existing tube balloon was deflated using 5 cc syringe and removed. The site was cleaned and new 20 F Bard gastrostomy tube was inserted through existing tract without resistance. Balloon was inflated using 5 cc sterile water and bumper was secured to 4 cm from abdominal wall. Patient tolerated procedure well without complications. Aspiration of tube showed clear gastric content. - Obtain AXR after gastrograffin administration to confirm tube placement - If in appropriate location within gastric lumen, may resume use of tube feeding - Suggest antibiotic therapy for 5 day duration given initial dislodged tube in subcutaneous tissue - Change dressing daily, consider wound care evaluation
--- NOTE | 2018-06-23 13:03 | PN ---
DATE: 06/23/2018 SUBJECTIVE: This 37-year-old male seen and examined initially in rounds for GI consultation on 06/22/2018, reexamined again today with the staff in the floor, unresponsive to any verbal stimuli with poorly functioning PEG tube, it is G tube leaking around the stoma. The entire chart is reviewed including but not limited to most recent lab and radiology study results, current and the previous medication list, current and the previous medical events. Case discussed with the staff at length and the official report of the CAT scan of the abdomen and pelvis still pending. No reported active bleeding as the patient is unable to give any accurate information due to his clinical status. LABORATORY DATA: Labs result today showed normal CBC with blood glucose level of 95. PHYSICAL EXAMINATION: GENERAL: A 37-year-old male, known case for me from previous several admissions. VITAL SIGNS: Afebrile with pulse of 76, respiratory 20 to 22, blood pressure 114/64. HEENT: Showed pale dry oral mucoid membrane. Nonicteric sclerae. Based on record, it is extremely difficult to have the patient mouth wide open and there is some old finding. LUNGS: Scattered crepitation. Decreased air entry at bases. HEART: Positive S1 and S2. ABDOMEN: Soft. The gastrostomy tube is in place with evidence of anterior abdominal wall mild cellulitis with some discharge at the stoma. No mass or organomegaly. No rebound tenderness or guarding. EXTREMITIES: With mild lower extremity edematous changes. No clubbing or cyanosis. NEUROLOGIC: No reported new neurological deficits, sensory or motor. No reported new focal deficits. IMPRESSION: 1. Anterior abdominal wall cellulitis. 2. To rule out intra-abdominal abscess formation versus intra-abdominal wall anterior abscess formation. 3. Malnutrition, dysphagia, seizure disorder, multiple sclerosis by history as well as diabetes mellitus by history. SUGGESTIONS: 1. Agree with your plan. 2. Surgical consultation. 3. Central hyperalimentation. 4. IV antibiotics. 5. Further recommendation to follow. Khushi Urias MD
[2018-06-23] MEDS ORDERED: Iohexol 240 (50 ml) ONE (13:40)
[2018-06-23] MEDS ORDERED: STERILE WATER IRRIGATION PR SCH (14:30)
--- NOTE | 2018-06-23 15:18 | CP.PCM.DIS ---
<Palak Smith - Last Filed: 06/23/18 17:43> Provider - Provider Date of Admission: 06/22/18 21:35 Attending physician: Santi Nieto MD Consults: 06/22/18 18:51 Physician Consult Stat Comment: Consulting Provider: Khushi Espinosa Consulting Physician: Khushi Espinosa Reason for Consult: PEG tube malfunction 06/23/18 05:27 Nursing Referral for Palliative Care Routine Comment: Physician Instructions: Reason For Exam: Complete care patient Nursing Referral for Wound Care Routine Comment: Physician Instructions: Reason For Exam: Left foot pressure ulcer stage 4 06/23/18 12:55 Gastroenterology Consult Routine Comment: Consulting Provider: Ayo De La Fuente Consulting Physician: Ayo De La Fuente Reason for Consult: PEG replacement Time Spent in preparation of Discharge (in minutes): 45 Diagnosis - Discharge Diagnosis (1) PEG tube malfunction Status: Acute Hospital Course - Lab Results Lab Results: Most Recent Lab Values WBC 4.6 K/uL (4.8-10.8) L 06/23/18 11:32 RBC 5.11 Mil/uL (4.40-5.90) 06/23/18 11:32 Hgb 13.3 g/dL (12.0-18.0) 06/23/18 11:32 Hct 41.8 % (35.0-51.0) 06/23/18 11:32 MCV 81.8 fL (80.0-94.0) 06/23/18 11:32 MCH 26.0 pg (27.0-31.0) L 06/23/18 11:32 MCHC 31.9 g/dL (33.0-37.0) L 06/23/18 11:32 RDW 15.1 % (11.5-14.5) H 06/23/18 11:32 Plt Count 220 K/uL (130-400) 06/23/18 11:32 MPV 11.3 fL (7.2-11.7) 06/23/18 11:32 Neut % (Auto) 68.4 % (50.0-75.0) 06/23/18 11:32 Lymph % (Auto) 18.8 % (20.0-40.0) L 06/23/18 11:32 [place] % (Auto) 8.2 % (0.0-10.0) 06/23/18 11:32 Eos % (Auto) 3.5 % (0.0-4.0) 06/23/18 11:32 Baso % (Auto) 1.1 % (0.0-2.0) 06/23/18 11:32 Neut # (Auto) 3.1 K/uL (1.8-7.0) 06/23/18 11:32 Lymph # (Auto) 0.9 K/uL (1.0-4.3) L 06/23/18 11:32 [place] # (Auto) 0.4 K/uL (0.0-0.8) 06/23/18 11:32 Eos # (Auto) 0.2 K/uL (0.0-0.7) 06/23/18 11:32 Baso # (Auto) 0.1 K/uL (0.0-0.2) 06/23/18 11:32 Sodium 145 mmol/L (132-148) 06/23/18 11:32 Potassium 3.9 mmol/L (3.6-5.2) 06/23/18 11:32 Chloride 108 mmol/L (98-107) H 06/23/18 11:32 Carbon Dioxide 28 mmol/L (22-30) 06/23/18 11:32 Anion Gap 13 (10-20) 06/23/18 11:32 BUN 22 mg/dL (9-20) H 06/23/18 11:32 Creatinine 0.6 mg/dL (0.8-1.5) L 06/23/18 11:32 Est GFR ( Amer) > 60 06/23/18 11:32 Est GFR (Non-Af Amer) > 60 06/23/18 11:32 POC Glucose (mg/dL) 85 mg/dL (65-110) 06/23/18 11:22 Random Glucose 74 mg/dL (75-110) L D 06/23/18 11:32 Calcium 9.4 mg/dl (8.6-10.4) 06/23/18 11:32 Phosphorus 3.0 mg/dL (2.5-4.5) 06/23/18 11:32 Magnesium 2.2 mg/dL (1.6-2.3) 06/23/18 11:32 Total Bilirubin 0.5 mg/dL (0.2-1.3) 06/23/18 11:32 AST 23 U/L (17-59) 06/23/18 11:32 ALT 18 U/L (21-72) L D 06/23/18 11:32 Alkaline Phosphatase 118 U/L (38-126) 06/23/18 11:32 Total Protein 8.7 g/dL (6.3-8.3) H 06/23/18 11:32 Albumin 4.4 g/dL (3.5-5.0) 06/23/18 11:32 Globulin 4.2 gm/dL (2.2-3.9) H 06/23/18 11:32 Albumin/Globulin Ratio 1.0 (1.0-2.1) 06/23/18 11:32 Lipase 54 U/L (23-300) 06/22/18 18:02 - Hospital Course Hospital Course: Patient is a 37 year old male with history of respiratory failure, seizure disorder, MS, DM2, aphasia, dysphagia, obstructive uropothy who is aphasic, brought from [facility] to ED for PEG tube replacement. Patient has had peg tube changed recently on 04/19/18 and 02/28/18. Patient himself is aphasic, sleeping, contracted and unable to provide any history. During his last admission in March 2018, he was sent in for foul discharge from the peg tube site, found to have urinary tract infection positive for Proteus and sent back with 7 day dose of Ertapenem IV. Unable to obtain review of system. Family not present at bedside. CT A/P showed PEG tube and balloon catheter within the subcutaneous soft tissue of the LUQ instead of within the stomach. Dr. De La Fuente was able to replace the PEG at bedside has the tract was still viable. This was confirmed with a delayed gastrograffin abdominal XR. Bloodwork and vital signs were all stable; the patient was notably afebrile and did not have an elevated white count. It was noted that the area seemed dirty and the patient had been with the tube dislodged for some time, so short term prophylactic antibiotics are recommended on discharge. Primary Diagnosis: PEG tube malfunction Patient is clear for discharge back to [facility] per Dr. Tripp. He is being started on Zosyn 3.375mg IVPB q6 for 7 days. The newly inserted PEG has confirmed placement and should have free water flushes to maintain patency. PEG feedings can be restarted as before admission. If patient continues to remove PEG, we may have to consider mitts or other restraints. This is a summary of the hospital course. Please refer to the EMR for more detail. - Date & Time of H&P Date of H&P: 06/23/18 Time of H&P: 16:00 Discharge Exam - Head Exam Head Exam: ATRAUMATIC, NORMOCEPHALIC - Eye Exam Additional comments: Eyes open and appears to follow light, however patient doesn't follow commands. Pupils not fixed. - ENT Exam ENT Exam: Mucous Membranes Moist - Respiratory Exam Respiratory Exam: Clear to PA & Lateral, NORMAL BREATHING PATTERN. absent: Rales, Rhonchi, Wheezes - Cardiovascular Exam Cardiovascular Exam: REGULAR RHYTHM, +S1, +S2 Additional comments: palpable port in L chest - GI/Abdominal Exam GI & Abdominal Exam: Normal Bowel Sounds, Soft. absent: Distended, Firm, Guarding, Rebound Additional comments: new PEG in place, dressing c/d/i. surrounding skin cleaned, non-erythematous, non-edematous - Exam Additional comments: Marked hypospadia, handley in place draining dark urine - Extremities Exam Additional comments: contracted - Neurological Exam Additional comments: areflexia. no blink reflex, bicep, patellar reflexes Unable to assess mental status since patient is aphasic. eyes are open, unable to answer questions - Skin Additional comments: Multiple scars on body, sacral region has healed ulcer with no skin breakdown Discharge Plan - Discharge Medications Prescriptions: Piperacillin/Tazobact [Zosyn] 3.375 gm IVPB Q6 #28 vial RX: Sterile Water [Sterile Water Irrigation 1000 ml] 30 ml [place] Q8 #1 bottle - Follow Up Plan Condition: FAIR Disposition: NURSING FACILITY MEDICAID CERT Instructions: Urinary Tract Infection, Adult (DC), How to Care for Your PEG Tube , Piperacillin and Tazobactam Additional Instructions: Patient is clear for discharge per Dr. Tripp. He is being started on Zosyn 3.375mg IVPB q6 for 7 days. The newly inserted PEG has confirmed placement and should have free water flushes to maintain patency. PEG feedings can be restarted as before admission. If patient continues to remove PEG, we may have to consider mitts or other restraints. <Logan Tripp - Last Filed: 06/24/18 08:02> Provider - Provider Date of Admission: 06/22/18 21:35 Attending physician: Santi Nieto MD Consults: 06/22/18 18:51 Physician Consult Stat Comment: Consulting Provider: Khushi Espinosa Consulting Physician: Khushi Espinosa Reason for Consult: PEG tube malfunction 06/23/18 05:27 Nursing Referral for Palliative Care Routine Comment: Physician Instructions: Reason For Exam: Complete care patient Nursing Referral for Wound Care Routine Comment: Physician Instructions: Reason For Exam: Left foot pressure ulcer stage 4 06/23/18 12:55 Gastroenterology Consult Routine Comment: Consulting Provider: Ayo De La Fuente Consulting Physician: Ayo De La Fuente Reason for Consult: PEG replacement Hospital Course - Lab Results Lab Results: Most Recent Lab Values WBC 4.6 K/uL (4.8-10.8) L 06/23/18 11:32 RBC 5.11 Mil/uL (4.40-5.90) 06/23/18 11:32 Hgb 13.3 g/dL (12.0-18.0) 06/23/18 11:32 Hct 41.8 % (35.0-51.0) 06/23/18 11:32 MCV 81.8 fL (80.0-94.0) 06/23/18 11:32 MCH 26.0 pg (27.0-31.0) L 06/23/18 11:32 MCHC 31.9 g/dL (33.0-37.0) L 06/23/18 11:32 RDW 15.1 % (11.5-14.5) H 06/23/18 11:32 Plt Count 220 K/uL (130-400) 06/23/18 11:32 MPV 11.3 fL (7.2-11.7) 06/23/18 11:32 Neut % (Auto) 68.4 % (50.0-75.0) 06/23/18 11:32 Lymph % (Auto) 18.8 % (20.0-40.0) L 06/23/18 11:32 [place] % (Auto) 8.2 % (0.0-10.0) 06/23/18 11:32 Eos % (Auto) 3.5 % (0.0-4.0) 06/23/18 11:32 Baso % (Auto) 1.1 % (0.0-2.0) 06/23/18 11:32 Neut # (Auto) 3.1 K/uL (1.8-7.0) 06/23/18 11:32 Lymph # (Auto) 0.9 K/uL (1.0-4.3) L 06/23/18 11:32 [place] # (Auto) 0.4 K/uL (0.0-0.8) 06/23/18 11:32 Eos # (Auto) 0.2 K/uL (0.0-0.7) 06/23/18 11:32 Baso # (Auto) 0.1 K/uL (0.0-0.2) 06/23/18 11:32 Sodium 145 mmol/L (132-148) 06/23/18 11:32 Potassium 3.9 mmol/L (3.6-5.2) 06/23/18 11:32 Chloride 108 mmol/L (98-107) H 06/23/18 11:32 Carbon Dioxide 28 mmol/L (22-30) 06/23/18 11:32 Anion Gap 13 (10-20) 06/23/18 11:32 BUN 22 mg/dL (9-20) H 06/23/18 11:32 Creatinine 0.6 mg/dL (0.8-1.5) L 06/23/18 11:32 Est GFR ( Amer) > 60 06/23/18 11:32 Est GFR (Non-Af Amer) > 60 06/23/18 11:32 POC Glucose (mg/dL) 72 mg/dL (65-110) 06/23/18 16:01 Random Glucose 74 mg/dL (75-110) L D 06/23/18 11:32 Calcium 9.4 mg/dl (8.6-10.4) 06/23/18 11:32 Phosphorus 3.0 mg/dL (2.5-4.5) 06/23/18 11:32 Magnesium 2.2 mg/dL (1.6-2.3) 06/23/18 11:32 Total Bilirubin 0.5 mg/dL (0.2-1.3) 06/23/18 11:32 AST 23 U/L (17-59) 06/23/18 11:32 ALT 18 U/L (21-72) L D 06/23/18 11:32 Alkaline Phosphatase 118 U/L (38-126) 06/23/18 11:32 Total Protein 8.7 g/dL (6.3-8.3) H 06/23/18 11:32 Albumin 4.4 g/dL (3.5-5.0) 06/23/18 11:32 Globulin 4.2 gm/dL (2.2-3.9) H 06/23/18 11:32 Albumin/Globulin Ratio 1.0 (1.0-2.1) 06/23/18 11:32 Lipase 54 U/L (23-300) 06/22/18 18:02 Attending/Attestation - Attestation I have personally seen and examined this patient.: Yes I have fully participated in the care of the patient.: Yes I have reviewed all pertinent clinical information, including history, physical exam and plan: Yes Notes (Text): 06/24/18 08:00 Medical attending: Patient was seen and examined by me, reviewed the above note by the resident The patient is non verbal and non responsive. It is not clear the previous history as to how he had so much what appears to be brain injury Reguardless the patient will need to be on IV zosyn for several more days GI has evalauted patient and the PEG tube addressed Will be discharging back to his facility thank you
[2018-06-23 16:36] VITALS: PULSE 114; TEMP 98.2
[2018-06-23] MEDS ORDERED: STERILE WATER IRRIGATION IJ SCH (22:00)
[2018-06-24] MEDS ORDERED: Pneumococcal 23-Valent Vaccine IM ONE (10:00)
[2018-06-24] MEDS ORDERED: Influenza Vaccine 60 MCG/0.5 ML SYR (3 yr & up) IM ONE (10:00)
--- NOTE | 2018-06-24 14:33 | RAD ---
Date of service: 06/23/2018 HISTORY: Confirm PEG placement COMPARISON: None available. FINDINGS: BOWEL: 30 mL Omnipaque was injected into the PEG tube. The PEG tube appears in satisfactory position. Contrast material is seen in the fundus of the stomach. No evidence for extraluminal contrast. BONES: Normal. OTHER FINDINGS: None. IMPRESSION: Back tube in satisfactory position. No evidence for extraluminal contrast.
--- NOTE | 2018-06-25 04:59 | CON ---
DATE: 06/22/[address] Urias to Dr. Nieto. I was called for GI consultation by the admitting medical team. The patient was seen and fully examined with the medical staff on 06/22/2018. The entire chart was reviewed including, but not limited to lab and radiology study results, current and the previous medication lists, current and the previous medical events, allergy to medication list as well as all the available current and the previous medical records. Case was discussed with the staff at length on 06/22/2018 immediately during my GI consultation and evaluation. HISTORY OF PRESENT ILLNESS: This is a 37-year-old male, known case from previous admission, who was admitted to the hospital due to feeding tube blockage with intermittent dysfunction of the gastric tube. All the information was obtained from the assisted record as well as the medical nursing staff record. The patient is unable to give any information. PAST MEDICAL HISTORY: Including multiple sclerosis, diabetes mellitus, seizure disorder, malnutrition, status post gastric tube insertion. FAMILY HISTORY: Noncontributory. SOCIAL HISTORY: No known recent history of cigarette smoking or alcohol intake. LABORATORY DATA: After being admitted to the hospital, the patient was found to have normal CBC, but BUN of 21 and creatinine of 0.5. Abdominal and pelvic CAT scan was ordered. No official report seen. PHYSICAL EXAMINATION: GENERAL: A 37-year-old male, alert and responds to verbal stimuli. VITAL SIGNS: With a temperature of 99.1, pulse of 54, respiratory rate 20 to 24, blood pressure 110/66. HEENT: Showed pale, dry mucous membranes and nonicteric sclerae; however, the patient cannot open his mouth fully. LYMPH NODES: No lymphadenitis or lymphadenopathy. LUNGS: Few scattered crepitation with decreased air entry at bases. HEART: Positive S1 and S2. ABDOMEN: The previously inserted gastrostomy tube with mild discharge at the stoma as well as evidence of anterior abdominal wall cellulitis. No mass or organomegaly. No rebound tenderness or guarding. Bowel sounds are hypoactive. EXTREMITIES: Without significant clubbing, cyanosis or edema. NEUROLOGIC: No reported new neurological deficits, sensory or motor. IMPRESSION: 1. Evidence of anterior abdominal wall mild cellulitis. 2. Stoma of previously inserted gastrotomy tube. 3. Malnutrition with dysphagia by history. 4. Multiple past medical histories as above. SUGGESTIONS: 1. Agree with your plan. 2. IV antibiotics. 3. Surgical consultation as the gastrostomy tube was inserted . 4. Further recommendation to follow. Thank you for letting me to participate in your patient's case management. Khushi Urias MD
== END 2018-06-23 21:00 | DRG 394 ==
LOC: C.ER 16:22 → C.9E 21:35 → C.6T 22:36
PROVIDERS: ADMIT Internal Medicine; ATTEND Internal Medicine
PROC: 0D20XUZ Change Feeding Device in Upper Intestinal Tract, External Approach (ICD-10-PCS; principal; 2018-06-23)
DX: K94.23 Gastrostomy malfunction (principal); L03.311 Cellulitis of abdominal wall; E46 Unspecified protein-calorie malnutrition; R47.01 Aphasia; F39 Unspecified mood [affective] disorder; E11.9 Type 2 diabetes mellitus without complications; G40.909 Epilepsy, unspecified, not intractable, without status epilepticus; K21.9 Gastro-esophageal reflux disease without esophagitis; Z74.01 Bed confinement status; N13.9 Obstructive and reflux uropathy, unspecified; L89.90 Pressure ulcer of unspecified site, unspecified stage; Y83.3 Surgical operation with formation of external stoma as the cause of abnormal reaction of the patient, or of later complication, without mention of misadventure at the time of the procedure

== ENCOUNTER 2018-07-31 14:36 | Inpatient (IN) | payer MEDICARE, MEDICAID ==
[2018-07-31 16:58] LABS: BASO # 0.1 K/uL (0.0-0.2); EOS # 0.2 K/uL (0.0-0.7); EOS % 3.1 % (0.0-4.0); HEMOGLOBIN 12.9 g/dL (12.0-18.0); LYMPH # 0.9 K/uL (1.0-4.3); LYMPH % 15.8 % (20.0-40.0); MEAN CELL VOLUME 80.3 fL (80.0-94.0); MEAN CORPUSCULAR HEMOGLOBIN 25.4 pg (27.0-31.0); MEAN CORPUSCULAR HGB CONC 31.7 g/dL (33.0-37.0); MEAN PLATELET VOLUME 11.1 fL (7.2-11.7); MONO # 0.4 K/uL (0.0-0.8); MONO % 6.5 % (0.0-10.0); NEUT % 73.6 % (50.0-75.0); NRBC % 0.1 % (0.0-2.0); RBC 5.08 Mil/uL (4.40-5.90); RED CELL DISTRIBUTION WIDTH 15.2 % (11.5-14.5); WHITE BLOOD COUNT 5.5 K/uL (4.8-10.8)
[2018-07-31 17:14] LABS: ALBUMIN 4.4 g/dL (3.5-5.0); ALT/SGPT 15 U/L (21-72); AST/SGOT 20 U/L (17-59); BLOOD UREA NITROGEN 22 mg/dL (9-20); CALCIUM 9.5 mg/dl (8.6-10.4); GFR NON-AFRICAN AMERICAN > 60
--- NOTE | 2018-07-31 17:18 | C.PDOC ---
History Of Present Illness 37 y/o Male, who is nonverbal, presents with history of Epilepsy, Respiratory Failure, MS, DM II, Aphasia, Dysphagia, Obstructive and Reflux Uropathy, Pressure Ulcers, and SIRS to the ED for medical evaluation of leakage from the G-tube site. He was sent from [facility] by Dr. Borjas. He has had previous replacement of G-tube in May 2018. No other history was able to be obtained. Time Seen by Provider: 07/31/18 17:00 Chief Complaint (Nursing): GI Problem History Per: Other ([facility] transfer form) History/Exam Limitations: physical impairment Current Symptoms Are (Timing): Still Present Past Medical History Reviewed: Historical Data, Nursing Documentation, Vital Signs Vital Signs: Last Vital Signs Temp 99.3 F 07/31/18 14:50 Pulse 56 L 07/31/18 14:50 Resp 16 07/31/18 14:50 BP 117/85 07/31/18 14:50 Pulse Ox 98 07/31/18 14:50 - Medical History PMH: Depression (PER CHART MOOD DISORDER DUE TO DX/CONDITION), Diabetes, Multiple Sclerosis, Seizures Denies: Chronic Kidney Disease Surgical History: Endoscopy - [facility] Procedures CHANGE FEEDING DEVICE IN UP INTEST TRACT, APPLICATIONS SPECIALIST APPROACH (06/22/18) INSERTION OF INFUSION DEV INTO SUP VENA CAVA, PERC APPROACH (04/18/18) INTRODUCTION OF SERUM/TOX/VACCINE INTO MUSCLE, PERC APPROACH (04/18/18) Family History: States: Unknown Family Hx - Social History Hx Alcohol Use: No Hx Substance Use: No Review Of Systems Review Of Systems: ROS cannot be obtained secondary to pt's inabilty to answer questions. Physical Exam - Physical Exam Appears: No Acute Distress, Chronically Ill Skin: Warm Head: Normacephalic Nose: Flaring Cardiovascular: Rhythm Regular Respiratory: Normal Breath Sounds Gastrointestinal/Abdominal: Soft, Other (peg tube in place; flushed with saline and draining from site) Neurological/Psych: No Response To Commands ED Course And Treatment - Laboratory Results Result Diagrams: 07/31/18 16:55 07/31/18 16:55 O2 Sat by Pulse Oximetry: 98 Medical Decision Making Medical Decision Making: A/P: Peg Tube Malfunction - D/W Dr. Borjas - refer to GI - Dr. De La Fuente for removal and replacement - admitted under Dr. Tripp Disposition Discussed With : Logan Tripp Comment: Also spoke with Dr. Borjas and Dr. De La Fuente Doctor Will See Patient In The: Hospital Counseled Patient/Family Regarding: Studies Performed, Diagnosis, Need For Followup - Disposition Disposition: HOSPITALIZED Disposition Time: 17:25 Condition: GUARDED - Clinical Impression Clinical Impression: PEG tube malfunction - PA / NURSING DEPARTMENT CHAIRPERSON / Resident Statement MD/DO has reviewed & agrees with the documentation as recorded. Decision To Admit - Pt Status Changed To: Hospital Disposition Of: Observation - . Bed Request Type: Regular Patient Diagnosis: PEG tube malfunction
--- NOTE | 2018-07-31 17:36 | CP.PCM.HP ---
<Kristine Hawthorne - Last Filed: 07/31/18 19:32> History of Present Illness - History of Present Illness History of Present Illness: CC: sent from [facility] for peg tube leaking HPI: Patient is a 37 year old male with PMHx of respiratory failure, seizure disorder, MS, DM2, aphasia, dysphagia, obstructive uropothy who is aphasic, brought from [facility] to ED for PEG tube leaking. Patient most recently had his PEG replaced on 06/23/18. No other recent changes noted per senior care. ROS unobtainable. PMD: Dr. Borjas PMH: respiratory failure, seizure disorder, MS, DM2, aphasia, dysphagia, obstructive uropothy, aphasia PSH: endoscopy, peg tube Home meds: Keppra 1000mg GT BID, Omeprazole, Ativan 0.5mg GT BID, Fentanyl 1 each TD Q2day, Eliquis 5mg GT BID, Duonebs 1 Q6 PRN, Tylenol 650mg PRN, Scopolamine 1mg/3 days, Vimpat 10mg/ml q12h 20ml, multivitamin Allergies: NKDA Social hx: no reported tobacco, alcohol or drug use as per prior chart Family hx: unable to obtain Present on Admission - Present on Admission Any Indicators Present on Admission: No History of DVT/PE: No History of Uncontrolled Diabetes: No Urinary Catheter: No Decubitus Ulcer Present: No Decubitus Ulcer Stage: II Review of Systems - Review of Systems Systems not reviewed;Unavailable: Acuity of Condition Past Patient History - Past Medical History & Family History Past Medical History?: Yes - Past Social History Smoking Status: Unknown If Ever Smoked - CARDIAC Hx Cardiac Disorders: No - PULMONARY Hx Respiratory Disorders: Yes Other/Comment: HX RESPIRATORY FAILURE HX TRACH - NEUROLOGICAL Hx Multiple Sclerosis: Yes Hx Seizures: Yes - HEENT Hx HEENT Problems: No - RENAL Hx Chronic Kidney Disease: No - ENDOCRINE/METABOLIC Hx Endocrine Disorders: Yes Hx Diabetes Mellitus Type 2: Yes - HEMATOLOGICAL/ONCOLOGICAL Hx Blood Disorders: No - INTEGUMENTARY Hx Dermatological Problems: Yes Other/Comment: PRESSURE ULCERS - MUSCULOSKELETAL/RHEUMATOLOGICAL Hx Musculoskeletal Disorders: Yes Hx Falls: No Other/Comment: CONTRACTED - GASTROINTESTINAL Hx Gastrointestinal Disorders: Yes Hx Gastroesophageal Reflux: Yes Other/Comment: DYSPHAGIA PEG - GENITOURINARY/GYNECOLOGICAL Hx Genitourinary Disorders: No - PSYCHIATRIC Hx Depression: Yes (PER CHART MOOD DISORDER DUE TO DX/CONDITION) Hx Substance Use: No - SURGICAL HISTORY Hx Surgeries: Yes Other/Comment: PEG TUBE INSERTION, TRACHEOSTOMY - ANESTHESIA Hx Anesthesia: Yes Hx Anesthesia Reactions: No Hx Malignant Hyperthermia: No Meds Allergies/Adverse Reactions: Allergies Allergy/AdvReac Type Severity Reaction Status Date / Time No Known Allergies Allergy Verified 07/31/18 16:05 Physical Exam - Constitutional Appears: Non-toxic, No Acute Distress Additional comments: Patient has contracted upper and lower extremities, opens eyes, nonverbal - Head Exam Head Exam: ATRAUMATIC, NORMAL INSPECTION, NORMOCEPHALIC - ENT Exam ENT Exam: Mucous Membranes Moist - Respiratory Exam Respiratory Exam: Clear to Auscultation Bilateral, NORMAL BREATHING PATTERN - Cardiovascular Exam Cardiovascular Exam: REGULAR RHYTHM, RRR, +S1, +S2 - GI/Abdominal Exam GI & Abdominal Exam: Normal Bowel Sounds, Soft Additional comments: Peg tube site in left abdomen with peg tube leaking - Extremities Exam Extremities exam: Negative for: pedal edema Additional comments: extremities contracted - Neurological Exam Neurological exam: Altered - Expanded Neurological Exam Expanded Speech: Total Aphasia Results - Vital Signs Recent Vital Signs: Last Vital Signs Temp 99.3 F 07/31/18 14:50 Pulse 56 L 07/31/18 14:50 Resp 16 07/31/18 14:50 BP 117/85 07/31/18 14:50 Pulse Ox 98 07/31/18 17:18 - Labs Result Diagrams: 07/31/18 16:55 07/31/18 16:55 Labs: Laboratory Results - last 24 hr 07/31/18 07/31/18 16:55 16:55 WBC 5.5 RBC 5.08 Hgb 12.9 Hct 40.8 MCV 80.3 MCH 25.4 L MCHC 31.7 L RDW 15.2 H Plt Count 213 MPV 11.1 Neut % (Auto) 73.6 Lymph % (Auto) 15.8 L [place] % (Auto) 6.5 Eos % (Auto) 3.1 Baso % (Auto) 1.0 Neut # (Auto) 4.0 Lymph # (Auto) 0.9 L [place] # (Auto) 0.4 Eos # (Auto) 0.2 Baso # (Auto) 0.1 Sodium 140 Potassium 4.3 Chloride 102 Carbon Dioxide 29 Anion Gap 13 BUN 22 H Creatinine 0.5 L Est GFR ( Amer) > 60 Est GFR (Non-Af Amer) > 60 Random Glucose 91 D Calcium 9.5 Total Bilirubin 0.6 AST 20 ALT 15 L Alkaline Phosphatase 154 H D Total Protein 8.9 H Albumin 4.4 Globulin 4.5 H Albumin/Globulin Ratio 1.0 Assessment & Plan - Assessment and Plan (Free Text) Assessment: Peg tube dysfunction GI- Dr. De La Fuente consulted, help appreciated NPO NS at 70 cc/ hr Hx of seizure disorder Keppra IV 1000mg BID seizure precautions Type 2 DM On Low dose ISS hypoglycemic treatment protocol accuchecks q6h Hx of MS/brain injury with dysphagia and aphasia Patient is bedbound, nonexpressive Full code Turn every 2 hours aspiration and fall precautions Ativan .5mg ivp q12h for agitation PPX SCDs restart eliquis once peg tube dysfunction resolved Heparin 5000 u sc q12h Duonebs q6h prn for SOB Scopolamine patch Case discussed with Dr. Tripp Dispo: patient may be discharged after peg tube replaced <Logan Tripp H - Last Filed: 08/02/18 06:52> Results - Vital Signs Recent Vital Signs: Last Vital Signs Temp 97.4 F L 08/02/18 00:00 Pulse 77 08/01/18 21:51 Resp 20 08/02/18 00:00 BP 114/73 08/02/18 00:00 Pulse Ox 100 08/02/18 00:00 - Labs Result Diagrams: 08/01/18 07:03 08/01/18 07:03 Labs: Laboratory Results - last 24 hr 08/01/18 08/01/18 08/01/18 06:03 07:03 07:03 WBC 5.1 RBC 4.88 Hgb 12.6 Hct 39.2 MCV 80.5 MCH 25.8 L MCHC 32.0 L RDW 15.1 H Plt Count 212 MPV 11.3 Neut % (Auto) 68.3 Lymph % (Auto) 21.3 [place] % (Auto) 8.2 Eos % (Auto) 1.2 Baso % (Auto) 1.0 Neut # (Auto) 3.5 Lymph # (Auto) 1.1 [place] # (Auto) 0.4 Eos # (Auto) 0.1 Baso # (Auto) 0.0 Sodium 142 Potassium 3.6 Chloride 108 H Carbon Dioxide 25 Anion Gap 12 BUN 22 H Creatinine 0.5 L Est GFR ( Amer) > 60 Est GFR (Non-Af Amer) > 60 POC Glucose (mg/dL) 87 Random Glucose 85 Calcium 9.1 Phosphorus 3.1 Magnesium 2.0 Total Bilirubin 0.5 AST 20 ALT 13 L Alkaline Phosphatase 138 H Total Protein 8.1 Albumin 4.2 Globulin 3.9 Albumin/Globulin Ratio 1.1 08/01/18 08/01/18 08/02/18 11:34 18:05 00:07 WBC RBC Hgb Hct MCV MCH MCHC RDW Plt Count MPV Neut % (Auto) Lymph % (Auto) [place] % (Auto) Eos % (Auto) Baso % (Auto) Neut # (Auto) Lymph # (Auto) [place] # (Auto) Eos # (Auto) Baso # (Auto) Sodium Potassium Chloride Carbon Dioxide Anion Gap BUN Creatinine Est GFR ( Amer) Est GFR (Non-Af Amer) POC Glucose (mg/dL) 95 88 78 Random Glucose Calcium Phosphorus Magnesium Total Bilirubin AST ALT Alkaline Phosphatase Total Protein Albumin Globulin Albumin/Globulin Ratio 08/02/18 05:33 WBC RBC Hgb Hct MCV MCH MCHC RDW Plt Count MPV Neut % (Auto) Lymph % (Auto) [place] % (Auto) Eos % (Auto) Baso % (Auto) Neut # (Auto) Lymph # (Auto) [place] # (Auto) Eos # (Auto) Baso # (Auto) Sodium Potassium Chloride Carbon Dioxide Anion Gap BUN Creatinine Est GFR ( Amer) Est GFR (Non-Af Amer) POC Glucose (mg/dL) 78 Random Glucose Calcium Phosphorus Magnesium Total Bilirubin AST ALT Alkaline Phosphatase Total Protein Albumin Globulin Albumin/Globulin Ratio Attending/Attestation - Attestation I have personally seen and examined this patient.: Yes I have fully participated in the care of the patient.: Yes I have reviewed all pertinent clinical information: Yes
[2018-07-31] MEDS ORDERED: Albuterol-Ipratrop 3 mg / 0.5 (3 ml) UD INH PRN (19:13)
[2018-07-31] MEDS ORDERED: Glucagon Recombinant 1 mg Inj IM PRN (19:21)
[2018-07-31] MEDS ORDERED: Dextrose 50% SYRINGE Inj (50 ml) IV PRN (19:21)
[2018-07-31] MEDS: Sodium Chloride 0.9% 1,000 ML IV SCH (20:12)
[2018-07-31] MEDS: levETIRAcetam 1,000 MG in Sodium Chloride 0.9% 100 ML IVPB SCH (20:52)
[2018-07-31] MEDS ORDERED: (Novolin R) Insulin Human Regular 100 units/ml vial SC SCH (22:00)
[2018-08-01] MEDS: (Novolin R) Insulin Human Regular 100 units/ml vial SC SCH ×4 (06:00→18:06)
[2018-08-01 07:23] LABS: EOS # 0.1 K/uL (0.0-0.7); EOS % 1.2 % (0.0-4.0); HEMOGLOBIN 12.6 g/dL (12.0-18.0); LYMPH # 1.1 K/uL (1.0-4.3); LYMPH % 21.3 % (20.0-40.0); MEAN CELL VOLUME 80.5 fL (80.0-94.0); MEAN CORPUSCULAR HEMOGLOBIN 25.8 pg (27.0-31.0); MEAN PLATELET VOLUME 11.3 fL (7.2-11.7); MONO # 0.4 K/uL (0.0-0.8); MONO % 8.2 % (0.0-10.0); NEUT # 3.5 K/uL (1.8-7.0); NEUT % 68.3 % (50.0-75.0); NRBC % 0.1 % (0.0-2.0); RBC 4.88 Mil/uL (4.40-5.90); RED CELL DISTRIBUTION WIDTH 15.1 % (11.5-14.5); WHITE BLOOD COUNT 5.1 K/uL (4.8-10.8)
[2018-08-01 07:47] LABS: ALB/GLOB RATIO 1.1 (1.0-2.1); ALBUMIN 4.2 g/dL (3.5-5.0); ALT/SGPT 13 U/L (21-72); AST/SGOT 20 U/L (17-59); BLOOD UREA NITROGEN 22 mg/dL (9-20); CALCIUM 9.1 mg/dl (8.6-10.4); GFR NON-AFRICAN AMERICAN > 60
[2018-08-01] MEDS: levETIRAcetam 1,000 MG in Sodium Chloride 0.9% 100 ML IVPB SCH ×2 (08:24→19:53)
--- NOTE | 2018-08-01 08:28 | CP.PCM.CON ---
<ChelaMoses - Last Filed: 08/01/18 08:31> History of Present Illness - History of Present Illness History of Present Illness: PGY-4 GI Fellow Consult Note The following obtained from chart review due to patient clinical condition. Pt is a 37 year old BM with history of respiratory failure, seizure disorder, MS, DM2, aphasia, dysphagia, obstructive uropothy who is aphasic, brought from [facility] to ED for PEG tube "leaking." Patient has had PEG tube changed on 04/19/18, 02/28/18 and 06/23/18 with 20 F tube. No family or caregivers at bedside to provide any history. On 06/23/18, balloon was within abd wall but replacement tube was easily placed with confirmation with contrasted radiographs. Unable to obtain ROS due to clinical condition PMH: Respiratory failure, seizure disorder, aphasic, MS, DM2, aphasia, dysphagia, obstructive uropothy PSH: EGD for PEG placement Home meds: Reviewed in chart SocHx: no reported tobacco, alcohol or drug use as per prior chart FamHx: unable to obtain Allergies: NKDA Past Patient History - Past Medical History & Family History Past Medical History?: Yes - Past Social History Smoking Status: Unknown If Ever Smoked - CARDIAC Hx Cardiac Disorders: No - PULMONARY Hx Respiratory Disorders: Yes Other/Comment: HX RESPIRATORY FAILURE HX TRACH - NEUROLOGICAL Hx Multiple Sclerosis: Yes Hx Seizures: Yes - HEENT Hx HEENT Problems: No - RENAL Hx Chronic Kidney Disease: No - ENDOCRINE/METABOLIC Hx Endocrine Disorders: Yes Hx Diabetes Mellitus Type 2: Yes - HEMATOLOGICAL/ONCOLOGICAL Hx Blood Disorders: No - INTEGUMENTARY Hx Dermatological Problems: Yes Other/Comment: PRESSURE ULCERS - MUSCULOSKELETAL/RHEUMATOLOGICAL Hx Musculoskeletal Disorders: Yes Hx Falls: No Other/Comment: CONTRACTED - GASTROINTESTINAL Hx Gastrointestinal Disorders: Yes Hx Gastroesophageal Reflux: Yes Other/Comment: DYSPHAGIA PEG - GENITOURINARY/GYNECOLOGICAL Hx Genitourinary Disorders: No - PSYCHIATRIC Hx Depression: Yes (PER CHART MOOD DISORDER DUE TO DX/CONDITION) Hx Substance Use: No - SURGICAL HISTORY Hx Surgeries: Yes Other/Comment: PEG TUBE INSERTION, TRACHEOSTOMY - ANESTHESIA Hx Anesthesia: Yes Hx Anesthesia Reactions: No Hx Malignant Hyperthermia: No Meds Allergies/Adverse Reactions: Allergies Allergy/AdvReac Type Severity Reaction Status Date / Time No Known Allergies Allergy Verified 07/31/18 16:05 - Medications Medications: Current Medications Albuterol/Ipratropium (Duoneb 3 Mg/0.5 Mg (3 Ml) Ud) 3 ml INH RQ6 PRN PRN Reason: Shortness of Breath Dextrose (Dextrose 50% Inj) 0 ml IV STAT PRN; Protocol PRN Reason: Hypoglycemia Protocol Dextrose (Glutose 15) 0 gm PO ONCE PRN; Protocol PRN Reason: Hypoglycemia Protocol Glucagon (Glucagen Diagnostic Kit) 0 mg IM STAT PRN; Protocol PRN Reason: Hypoglycemia Protocol Heparin Sodium (Porcine) (Heparin) 5,000 units SC Q12H [facility] Last Admin: 08/01/18 08:24 Dose: 5,000 units Levetiracetam 1,000 mg/ Sodium (Chloride) 110 mls @ 420 mls/hr IVPB Q12H [facility] Last Admin: 08/01/18 08:24 Dose: 420 mls/hr Sodium Chloride (Sodium Chloride 0.9%) 1,000 mls @ 70 mls/hr IV .[id number] [facility] Last Admin: 07/31/18 20:12 Dose: 70 mls/hr Dextrose (Dextrose 5% In Water 1000 Ml) 1,000 mls @ 0 mls/hr IV .Q0M PRN; Protocol PRN Reason: Hypoglycemia Protocol Insulin Human Regular (Novolin R) 0 unit SC Q6H [facility]; Protocol Last Admin: 08/01/18 06:00 Dose: Not Given Lorazepam (Ativan) 0.5 mg IVP Q12H PRN PRN Reason: Anxiety Scopolamine (Transderm-Scop) 1 patch TD Q3D [facility] Last Admin: 07/31/18 20:31 Dose: 1 patch Physical Exam - Constitutional Appears: No Acute Distress, Cachectic, Chronically Ill - Head Exam Head Exam: ATRAUMATIC Additional comments: temporal wasting - ENT Exam ENT Exam: Mucous Membranes Dry. absent: Mucous Membranes Moist - Respiratory Exam Respiratory Exam: Clear to Auscultation Bilateral, NORMAL BREATHING PATTERN. absent: Accessory Muscle Use - Cardiovascular Exam Cardiovascular Exam: REGULAR RHYTHM, RRR - GI/Abdominal Exam GI & Abdominal Exam: Normal Bowel Sounds, Soft. absent: Bruit, Diminished Bowel Sounds, Distended, Firm, Guarding, Organomegaly, Pulsatile Mass, Rebound, Rigid, Tenderness Additional comments: PEG with with tube in place, dressing around PEG with saturated with liquid and slightly mucous/purulent material, firm induration area of reddish mucosa surround tract - Rectal Exam Rectal Exam: Deferred - Extremities Exam Extremities exam: Negative for: pedal edema Additional comments: multiple contractures - Neurological Exam Additional comments: opened eyes to light tactile stim, but nonverbal - Skin Skin Exam: Normal Color, Warm Results - Vital Signs Recent Vital Signs: Last Vital Signs Temp 99.4 F 08/01/18 00:00 Pulse 77 08/01/18 00:00 Resp 20 08/01/18 00:00 BP 124/85 08/01/18 00:00 Pulse Ox 98 08/01/18 04:29 - Labs Result Diagrams: 08/01/18 07:03 08/01/18 07:03 Labs: Laboratory Results - last 24 hr 07/31/18 07/31/18 07/31/18 16:55 16:55 21:19 WBC 5.5 RBC 5.08 Hgb 12.9 Hct 40.8 MCV 80.3 MCH 25.4 L MCHC 31.7 L RDW 15.2 H Plt Count 213 MPV 11.1 Neut % (Auto) 73.6 Lymph % (Auto) 15.8 L [place] % (Auto) 6.5 Eos % (Auto) 3.1 Baso % (Auto) 1.0 Neut # (Auto) 4.0 Lymph # (Auto) 0.9 L [place] # (Auto) 0.4 Eos # (Auto) 0.2 Baso # (Auto) 0.1 Sodium 140 Potassium 4.3 Chloride 102 Carbon Dioxide 29 Anion Gap 13 BUN 22 H Creatinine 0.5 L Est GFR ( Amer) > 60 Est GFR (Non-Af Amer) > 60 POC Glucose (mg/dL) 103 Random Glucose 91 D Calcium 9.5 Phosphorus Magnesium Total Bilirubin 0.6 AST 20 ALT 15 L Alkaline Phosphatase 154 H D Total Protein 8.9 H Albumin 4.4 Globulin 4.5 H Albumin/Globulin Ratio 1.0 08/01/18 08/01/18 08/01/18 00:21 07:03 07:03 WBC 5.1 RBC 4.88 Hgb 12.6 Hct 39.2 MCV 80.5 MCH 25.8 L MCHC 32.0 L RDW 15.1 H Plt Count 212 MPV 11.3 Neut % (Auto) 68.3 Lymph % (Auto) 21.3 [place] % (Auto) 8.2 Eos % (Auto) 1.2 Baso % (Auto) 1.0 Neut # (Auto) 3.5 Lymph # (Auto) 1.1 [place] # (Auto) 0.4 Eos # (Auto) 0.1 Baso # (Auto) 0.0 Sodium 142 Potassium 3.6 Chloride 108 H Carbon Dioxide 25 Anion Gap 12 BUN 22 H Creatinine 0.5 L Est GFR ( Amer) > 60 Est GFR (Non-Af Amer) > 60 POC Glucose (mg/dL) 100 Random Glucose 85 Calcium 9.1 Phosphorus 3.1 Magnesium 2.0 Total Bilirubin 0.5 AST 20 ALT 13 L Alkaline Phosphatase 138 H Total Protein 8.1 Albumin 4.2 Globulin 3.9 Albumin/Globulin Ratio 1.1 Assessment & Plan - Assessment and Plan (Free Text) Assessment: 37 yo BM with MS, h/o respiratory failure, aphasic, chronic PEG presenting with PEG "leaking." # PEG malfunction: H/o multiple dislodgements, last replaced on 06/23/18 with 20 F tube. Given firm, indurated area around stoma will obtain CT imaging to further evaluate prior to attempting replacement. Plan: - CT Abd+Pelvis with IV contrast - Consider bedside exchange later pending above results Pt seen and examined with Dr. De La Fuente; please see attestation for further recs/changes Moses York, PGY-4 <Ayo De La Fuente - Last Filed: 08/01/18 09:16> Meds - Medications Medications: Current Medications Albuterol/Ipratropium (Duoneb 3 Mg/0.5 Mg (3 Ml) Ud) 3 ml INH RQ6 PRN PRN Reason: Shortness of Breath Dextrose (Dextrose 50% Inj) 0 ml IV STAT PRN; Protocol PRN Reason: Hypoglycemia Protocol Dextrose (Glutose 15) 0 gm PO ONCE PRN; Protocol PRN Reason: Hypoglycemia Protocol Glucagon (Glucagen Diagnostic Kit) 0 mg IM STAT PRN; Protocol PRN Reason: Hypoglycemia Protocol Heparin Sodium (Porcine) (Heparin) 5,000 units SC Q12H [facility] Last Admin: 08/01/18 08:24 Dose: 5,000 units Levetiracetam 1,000 mg/ Sodium (Chloride) 110 mls @ 420 mls/hr IVPB Q12H [facility] Last Admin: 08/01/18 08:24 Dose: 420 mls/hr Sodium Chloride (Sodium Chloride 0.9%) 1,000 mls @ 70 mls/hr IV .[id number] [facility] Last Admin: 07/31/18 20:12 Dose: 70 mls/hr Dextrose (Dextrose 5% In Water 1000 Ml) 1,000 mls @ 0 mls/hr IV .Q0M PRN; Protocol PRN Reason: Hypoglycemia Protocol Insulin Human Regular (Novolin R) 0 unit SC Q6H [facility]; Protocol Last Admin: 08/01/18 06:00 Dose: Not Given Lorazepam (Ativan) 0.5 mg IVP Q12H PRN PRN Reason: Anxiety Scopolamine (Transderm-Scop) 1 patch TD Q3D [facility] Last Admin: 07/31/18 20:31 Dose: 1 patch Results - Vital Signs Recent Vital Signs: Last Vital Signs Temp 98.5 F 08/01/18 08:36 Pulse 60 08/01/18 08:36 Resp 20 08/01/18 08:36 BP 120/76 08/01/18 08:36 Pulse Ox 100 08/01/18 08:36 - Labs Result Diagrams: 08/01/18 07:03 08/01/18 07:03 Labs: Laboratory Results - last 24 hr 07/31/18 07/31/18 07/31/18 16:55 16:55 21:19 WBC 5.5 RBC 5.08 Hgb 12.9 Hct 40.8 MCV 80.3 MCH 25.4 L MCHC 31.7 L RDW 15.2 H Plt Count 213 MPV 11.1 Neut % (Auto) 73.6 Lymph % (Auto) 15.8 L [place] % (Auto) 6.5 Eos % (Auto) 3.1 Baso % (Auto) 1.0 Neut # (Auto) 4.0 Lymph # (Auto) 0.9 L [place] # (Auto) 0.4 Eos # (Auto) 0.2 Baso # (Auto) 0.1 Sodium 140 Potassium 4.3 Chloride 102 Carbon Dioxide 29 Anion Gap 13 BUN 22 H Creatinine 0.5 L Est GFR ( Amer) > 60 Est GFR (Non-Af Amer) > 60 POC Glucose (mg/dL) 103 Random Glucose 91 D Calcium 9.5 Phosphorus Magnesium Total Bilirubin 0.6 AST 20 ALT 15 L Alkaline Phosphatase 154 H D Total Protein 8.9 H Albumin 4.4 Globulin 4.5 H Albumin/Globulin Ratio 1.0 08/01/18 08/01/18 08/01/18 00:21 07:03 07:03 WBC 5.1 RBC 4.88 Hgb 12.6 Hct 39.2 MCV 80.5 MCH 25.8 L MCHC 32.0 L RDW 15.1 H Plt Count 212 MPV 11.3 Neut % (Auto) 68.3 Lymph % (Auto) 21.3 [place] % (Auto) 8.2 Eos % (Auto) 1.2 Baso % (Auto) 1.0 Neut # (Auto) 3.5 Lymph # (Auto) 1.1 [place] # (Auto) 0.4 Eos # (Auto) 0.1 Baso # (Auto) 0.0 Sodium 142 Potassium 3.6 Chloride 108 H Carbon Dioxide 25 Anion Gap 12 BUN 22 H Creatinine 0.5 L Est GFR ( Amer) > 60 Est GFR (Non-Af Amer) > 60 POC Glucose (mg/dL) 100 Random Glucose 85 Calcium 9.1 Phosphorus 3.1 Magnesium 2.0 Total Bilirubin 0.5 AST 20 ALT 13 L Alkaline Phosphatase 138 H Total Protein 8.1 Albumin 4.2 Globulin 3.9 Albumin/Globulin Ratio 1.1 Attending/Attestation - Attestation I have personally seen and examined this patient.: Yes I have fully participated in the care of the patient.: Yes I have reviewed all pertinent clinical information: Yes Notes (Text): 08/01/18 09:10 I have seen and examined patient with GI fellow. Agree with above documentation with the following additions. In brief, this is a 37 year old male with history of MS, seizure disorder, DM, aphasia, dysphagia s/p PEG placement (recent replacement in May 2018) who is sent from alf for evaluation of malfunctioning gastrostomy tube with leaking of food content. Patient is non- verbal at baseline and unable to participate in conversation. Additional information obtained via chart review, discussion with nursing staff and patient family members. Apparently the tube has been leaking food content for the past one week despite free water flushes and tube care. There is no reported abdominal pain, nausea, vomiting, fever/chills. Additional physical examination: Psych: unable to assess MS Seizure disorder Aphasia DM Dysphagia s/p PEG placement with questionable malfunctioning tube - Given prior clinical history with multiple episodes of tube dislodgment and appearance of PEG site with induration where existing gastrostomy tube is, suggest CT imaging with contrast to rule out abscess formation - May consider replacement of tube with larger diameter to prevent leakage of gastric contents pending imaging results - NPO - Continue with IVF hydration, supportive care
[2018-08-01] MEDS: Sodium Chloride 0.9% 1,000 ML IV SCH (10:22)
[2018-08-01] MEDS ORDERED: Iodixanol 320 MG/ML 100 ML BOTTLE IV ONE (14:52)
--- NOTE | 2018-08-01 16:18 | CP.PCM.PCO ---
Physician Communication Note - Physician Communication Note Physician Communication Note: PEG replaced w/20F tube.Ext bolster at 6 cm.OK to use wfeeds, slow rate
--- NOTE | 2018-08-01 16:32 | CP.PCM.PN ---
Subjective - Date & Time of Evaluation Date of Evaluation: 08/01/18 Time of Evaluation: 16:29 - Subjective Subjective: PGY-1 Medicine Progress Note for Dr. Lipscomb's service S/E at bedside. Limited ROS due to patient clinical condition. Objective - Vital Signs/Intake and Output Vital Signs (last 24 hours): Temp Pulse Resp BP Pulse Ox 98.2 F 53 L 20 110/76 100 08/01/18 16:00 08/01/18 16:00 08/01/18 16:00 08/01/18 16:00 08/01/18 16:00 Intake and Output: 08/01/18 08/01/18 06:59 18:59 Intake Total 1150 Output Total 2 Balance 1148 - Medications Medications: Current Medications Albuterol/Ipratropium (Duoneb 3 Mg/0.5 Mg (3 Ml) Ud) 3 ml INH RQ6 PRN PRN Reason: Shortness of Breath Dextrose (Dextrose 50% Inj) 0 ml IV STAT PRN; Protocol PRN Reason: Hypoglycemia Protocol Dextrose (Glutose 15) 0 gm PO ONCE PRN; Protocol PRN Reason: Hypoglycemia Protocol Glucagon (Glucagen Diagnostic Kit) 0 mg IM STAT PRN; Protocol PRN Reason: Hypoglycemia Protocol Heparin Sodium (Porcine) (Heparin) 5,000 units SC Q12H [facility] Last Admin: 08/01/18 08:24 Dose: 5,000 units Levetiracetam 1,000 mg/ Sodium (Chloride) 110 mls @ 420 mls/hr IVPB Q12H [facility] Last Admin: 08/01/18 08:24 Dose: 420 mls/hr Sodium Chloride (Sodium Chloride 0.9%) 1,000 mls @ 70 mls/hr IV .[id number] [facility] Last Admin: 08/01/18 10:22 Dose: 70 mls/hr Dextrose (Dextrose 5% In Water 1000 Ml) 1,000 mls @ 0 mls/hr IV .Q0M PRN; Protocol PRN Reason: Hypoglycemia Protocol Insulin Human Regular (Novolin R) 0 unit SC Q6H [facility]; Protocol Last Admin: 08/01/18 12:14 Dose: Not Given Lorazepam (Ativan) 0.5 mg IVP Q12H PRN PRN Reason: Anxiety Scopolamine (Transderm-Scop) 1 patch TD Q3D [facility] Last Admin: 07/31/18 20:31 Dose: 1 patch - Labs Labs: 08/01/18 07:03 08/01/18 07:03 - Additional Findings Additional findings: - Constitutional Appears: Non-toxic, No Acute Distress Additional comments: Patient has contracted upper and lower extremities, opens eyes, nonverbal - Head Exam Head Exam: ATRAUMATIC, NORMAL INSPECTION, NORMOCEPHALIC - ENT Exam ENT Exam: Mucous Membranes Moist - Respiratory Exam Respiratory Exam: Clear to Auscultation Bilateral, NORMAL BREATHING PATTERN - Cardiovascular Exam Cardiovascular Exam: REGULAR RHYTHM, RRR, +S1, +S2 - GI/Abdominal Exam GI & Abdominal Exam: Normal Bowel Sounds, Soft Additional comments: Peg tube site in left abdomen with peg tube leaking - Extremities Exam Extremities exam: Negative for: pedal edema Additional comments: extremities contracted - Neurological Exam Neurological exam: Altered - Expanded Neurological Exam Expanded Speech: Total Aphasia Assessment and Plan - Assessment and Plan (Free Text) Assessment: Peg tube dysfunction GI- Dr. De La Fuente consulted- PEG tube replaced on 08/01/18 NS at 70 cc/ hr PEG replaced w/20F tube.Ext bolster at 6 cm.OK to use wfeeds, slow rate as per GI Hx of seizure disorder Keppra IV 1000mg BID seizure precautions Type 2 DM On Low dose ISS hypoglycemic treatment protocol accuchecks q6h Hx of MS/brain injury with dysphagia and aphasia Patient is bedbound, nonexpressive Full code Turn every 2 hours aspiration and fall precautions Ativan .5mg ivp q12h for agitation PPX SCDs restart eliquis once peg tube dysfunction resolved Heparin 5000 u sc q12h Duonebs q6h prn for SOB Scopolamine patch Case discussed with Dr. Lipscomb PGY-1 Sinan Cook Dispo: after feeds started with no complications; patient can be dc[facility]ed back [facility] in AM
[2018-08-02] MEDS: Sodium Chloride 0.9% 1,000 ML IV SCH ×2 (00:03→14:39)
[2018-08-02] MEDS: (Novolin R) Insulin Human Regular 100 units/ml vial SC SCH ×4 (00:13→17:55)
[2018-08-02] MEDS: levETIRAcetam 1,000 MG in Sodium Chloride 0.9% 100 ML IVPB SCH ×2 (07:30→18:37)
[2018-08-02 07:48] LABS: BASO # 0.1 K/uL (0.0-0.2); BASO % 2.2 % (0.0-2.0); EOS # 0.2 K/uL (0.0-0.7); EOS % 4.4 % (0.0-4.0); HEMOGLOBIN 10.7 g/dL (12.0-18.0); LYMPH # 0.9 K/uL (1.0-4.3); LYMPH % 23.5 % (20.0-40.0); MEAN CELL VOLUME 81.4 fL (80.0-94.0); MEAN CORPUSCULAR HEMOGLOBIN 26.1 pg (27.0-31.0); MEAN CORPUSCULAR HGB CONC 32.1 g/dL (33.0-37.0); MEAN PLATELET VOLUME 11.7 fL (7.2-11.7); MONO # 0.4 K/uL (0.0-0.8); MONO % 10.9 % (0.0-10.0); NEUT # 2.4 K/uL (1.8-7.0); NRBC % 0.1 % (0.0-2.0); RBC 4.1 Mil/uL (4.40-5.90)
[2018-08-02 08:01] LABS: ALBUMIN 3.6 g/dL (3.5-5.0); ALT/SGPT 12 U/L (21-72); AST/SGOT 22 U/L (17-59); BLOOD UREA NITROGEN 19 mg/dL (9-20); CALCIUM 8.9 mg/dl (8.6-10.4); GFR NON-AFRICAN AMERICAN > 60
--- NOTE | 2018-08-02 11:37 | CP.PCM.DIS ---
<Sinan Cook - Last Filed: 08/02/18 11:30> Provider - Provider Date of Admission: 07/31/18 17:46 Attending physician: Logan Tripp DO Consults: 07/31/18 19:08 Wound Care [Nursing Referral for Wound Care] Routine Comment: Physician Instructions: Reason For Exam: left sacral ulcer and heel wound 07/31/18 19:09 Gastroenterology Consult Routine Comment: Consulting Provider: Ayo De La Fuente Consulting Physician: Ayo De La Fuente Reason for Consult: peg tube leaking Time Spent in preparation of Discharge (in minutes): 35 Diagnosis - Discharge Diagnosis (1) PEG tube malfunction Status: Resolved Hospital Course - Lab Results Lab Results: Most Recent Lab Values WBC 4.0 K/uL (4.8-10.8) L 08/02/18 07:35 RBC 4.10 Mil/uL (4.40-5.90) L 08/02/18 07:35 Hgb 10.7 g/dL (12.0-18.0) L 08/02/18 07:35 Hct 33.4 % (35.0-51.0) L 08/02/18 07:35 MCV 81.4 fL (80.0-94.0) 08/02/18 07:35 MCH 26.1 pg (27.0-31.0) L 08/02/18 07:35 MCHC 32.1 g/dL (33.0-37.0) L 08/02/18 07:35 RDW 15.0 % (11.5-14.5) H 08/02/18 07:35 Plt Count 164 K/uL (130-400) 08/02/18 07:35 MPV 11.7 fL (7.2-11.7) 08/02/18 07:35 Neut % (Auto) 59.0 % (50.0-75.0) 08/02/18 07:35 Lymph % (Auto) 23.5 % (20.0-40.0) 08/02/18 07:35 [place] % (Auto) 10.9 % (0.0-10.0) H 08/02/18 07:35 Eos % (Auto) 4.4 % (0.0-4.0) H 08/02/18 07:35 Baso % (Auto) 2.2 % (0.0-2.0) H 08/02/18 07:35 Neut # (Auto) 2.4 K/uL (1.8-7.0) 08/02/18 07:35 Lymph # (Auto) 0.9 K/uL (1.0-4.3) L 08/02/18 07:35 [place] # (Auto) 0.4 K/uL (0.0-0.8) 08/02/18 07:35 Eos # (Auto) 0.2 K/uL (0.0-0.7) 08/02/18 07:35 Baso # (Auto) 0.1 K/uL (0.0-0.2) 08/02/18 07:35 Sodium 141 mmol/L (132-148) 08/02/18 07:35 Potassium 3.6 mmol/L (3.6-5.2) 08/02/18 07:35 Chloride 108 mmol/L (98-107) H 08/02/18 07:35 Carbon Dioxide 28 mmol/L (22-30) 08/02/18 07:35 Anion Gap 10 (10-20) 08/02/18 07:35 BUN 19 mg/dL (9-20) 08/02/18 07:35 Creatinine 0.4 mg/dL (0.8-1.5) L 08/02/18 07:35 Est GFR ( Amer) > 60 08/02/18 07:35 Est GFR (Non-Af Amer) > 60 08/02/18 07:35 POC Glucose (mg/dL) 78 mg/dL (65-110) 08/02/18 05:33 Random Glucose 70 mg/dL (75-110) L 08/02/18 07:35 Calcium 8.9 mg/dl (8.6-10.4) 08/02/18 07:35 Phosphorus 3.1 mg/dL (2.5-4.5) 08/01/18 07:03 Magnesium 2.0 mg/dL (1.6-2.3) 08/01/18 07:03 Total Bilirubin 0.4 mg/dL (0.2-1.3) 08/02/18 07:35 AST 22 U/L (17-59) 08/02/18 07:35 ALT 12 U/L (21-72) L 08/02/18 07:35 Alkaline Phosphatase 120 U/L (38-126) 08/02/18 07:35 Total Protein 7.3 g/dL (6.3-8.3) 08/02/18 07:35 Albumin 3.6 g/dL (3.5-5.0) 08/02/18 07:35 Globulin 3.7 gm/dL (2.2-3.9) 08/02/18 07:35 Albumin/Globulin Ratio 1.0 (1.0-2.1) 08/02/18 07:35 - Hospital Course Hospital Course: Upon Admission Patient is a 37 year old male with PMHx of respiratory failure, seizure disorder, MS, DM2, aphasia, dysphagia, obstructive uropothy who is aphasic, brought from [facility] to ED for PEG tube leaking. Patient most recently had his PEG replaced on 06/23/18. No other recent changes noted per alf. ROS unobtainable. Hospital Course Patient admitted for PEG tube dysfunction. GI was consulted. PEG was replaced with GI team. Refer to procedural note for full details. PEG replacement completed and viable for tube feeds to be restarted at alf. Discharge Plan 1. Patient is stable for discharge to alf as per Dr. Tripp. 2. No medication adjustments were made during this admission. Patient can continue all previous medications with no changes. 3. PEG tube was replaced and can be restarted. Start tube feedings with rate of 20 per hour and then increase to goal rate of 60cc/hr with 2 hour nursing shift changes. 4. If symptoms worsen or recur please bring patient back to hospital. Discharge Exam - Additional Findings Additional findings: - Constitutional Appears: Non-toxic, No Acute Distress Additional comments: Patient has contracted upper and lower extremities, opens eyes, nonverbal - Head Exam Head Exam: ATRAUMATIC, NORMAL INSPECTION, NORMOCEPHALIC - ENT Exam ENT Exam: Mucous Membranes Moist - Respiratory Exam Respiratory Exam: Clear to Auscultation Bilateral, NORMAL BREATHING PATTERN - Cardiovascular Exam Cardiovascular Exam: REGULAR RHYTHM, RRR, +S1, +S2 - GI/Abdominal Exam GI & Abdominal Exam: Normal Bowel Sounds, Soft Additional comments: Peg tube site in left abdomen with peg tube leaking - Extremities Exam Extremities exam: Negative for: pedal edema Additional comments: extremities contracted - Neurological Exam Neurological exam: Altered - Expanded Neurological Exam Expanded Speech: Total Aphasia Discharge Plan - Follow Up Plan Condition: GUARDED Disposition: NURSING FACILITY MEDICAID CERT Instructions: How to Care for Your PEG Tube Additional Instructions: 1. Patient is stable for discharge to alf as per Dr. Tripp. 2. No medication adjustments were made during this admission. Patient can continue all previous medications with no changes. 3. PEG tube was replaced and can be restarted. Start tube feedings with rate of 20 per hour and then increase to goal rate of 60cc/hr with 2 hour nursing shift changes. 4. If symptoms worsen or recur please bring patient back to hospital. Referrals: Ayo De La Fuente MD [Staff Provider] - Terri Borjas MD [Staff Provider] - <Logan Tripp - Last Filed: 08/02/18 14:51> Provider - Provider Date of Admission: 07/31/18 17:46 Attending physician: Logan Tripp DO Consults: 07/31/18 19:08 Wound Care [Nursing Referral for Wound Care] Routine Comment: Physician Instructions: Reason For Exam: left sacral ulcer and heel wound 07/31/18 19:09 Gastroenterology Consult Routine Comment: Consulting Provider: Ayo De La Fuente Consulting Physician: Ayo De La Fuente Reason for Consult: peg tube leaking Hospital Course - Lab Results Lab Results: Most Recent Lab Values WBC 4.0 K/uL (4.8-10.8) L 08/02/18 07:35 RBC 4.10 Mil/uL (4.40-5.90) L 08/02/18 07:35 Hgb 10.7 g/dL (12.0-18.0) L 08/02/18 07:35 Hct 33.4 % (35.0-51.0) L 08/02/18 07:35 MCV 81.4 fL (80.0-94.0) 08/02/18 07:35 MCH 26.1 pg (27.0-31.0) L 08/02/18 07:35 MCHC 32.1 g/dL (33.0-37.0) L 08/02/18 07:35 RDW 15.0 % (11.5-14.5) H 08/02/18 07:35 Plt Count 164 K/uL (130-400) 08/02/18 07:35 MPV 11.7 fL (7.2-11.7) 08/02/18 07:35 Neut % (Auto) 59.0 % (50.0-75.0) 08/02/18 07:35 Lymph % (Auto) 23.5 % (20.0-40.0) 08/02/18 07:35 [place] % (Auto) 10.9 % (0.0-10.0) H 08/02/18 07:35 Eos % (Auto) 4.4 % (0.0-4.0) H 08/02/18 07:35 Baso % (Auto) 2.2 % (0.0-2.0) H 08/02/18 07:35 Neut # (Auto) 2.4 K/uL (1.8-7.0) 08/02/18 07:35 Lymph # (Auto) 0.9 K/uL (1.0-4.3) L 08/02/18 07:35 [place] # (Auto) 0.4 K/uL (0.0-0.8) 08/02/18 07:35 Eos # (Auto) 0.2 K/uL (0.0-0.7) 08/02/18 07:35 Baso # (Auto) 0.1 K/uL (0.0-0.2) 08/02/18 07:35 Sodium 141 mmol/L (132-148) 08/02/18 07:35 Potassium 3.6 mmol/L (3.6-5.2) 08/02/18 07:35 Chloride 108 mmol/L (98-107) H 08/02/18 07:35 Carbon Dioxide 28 mmol/L (22-30) 08/02/18 07:35 Anion Gap 10 (10-20) 08/02/18 07:35 BUN 19 mg/dL (9-20) 08/02/18 07:35 Creatinine 0.4 mg/dL (0.8-1.5) L 08/02/18 07:35 Est GFR ( Amer) > 60 08/02/18 07:35 Est GFR (Non-Af Amer) > 60 08/02/18 07:35 POC Glucose (mg/dL) 78 mg/dL (65-110) 08/02/18 05:33 Random Glucose 70 mg/dL (75-110) L 08/02/18 07:35 Calcium 8.9 mg/dl (8.6-10.4) 08/02/18 07:35 Phosphorus 3.1 mg/dL (2.5-4.5) 08/01/18 07:03 Magnesium 2.0 mg/dL (1.6-2.3) 08/01/18 07:03 Total Bilirubin 0.4 mg/dL (0.2-1.3) 08/02/18 07:35 AST 22 U/L (17-59) 08/02/18 07:35 ALT 12 U/L (21-72) L 08/02/18 07:35 Alkaline Phosphatase 120 U/L (38-126) 08/02/18 07:35 Total Protein 7.3 g/dL (6.3-8.3) 08/02/18 07:35 Albumin 3.6 g/dL (3.5-5.0) 08/02/18 07:35 Globulin 3.7 gm/dL (2.2-3.9) 08/02/18 07:35 Albumin/Globulin Ratio 1.0 (1.0-2.1) 08/02/18 07:35 Attending/Attestation - Attestation I have personally seen and examined this patient.: Yes I have fully participated in the care of the patient.: Yes I have reviewed all pertinent clinical information, including history, physical exam and plan: Yes Notes (Text): 08/02/18 14:46 Medical attending: Patient was seen and examined by me. Agree wit the above note by the resident The PEG was functioning and flushing. There was no leaking around the new site. The patient will be returning to [facility] shortly thereafter. Logan Tripp
--- NOTE | 2018-08-02 13:18 | CP.PCM.PN ---
<Sinan Cook - Last Filed: 08/02/18 13:18> Subjective - Date & Time of Evaluation Date of Evaluation: 08/02/18 Time of Evaluation: 13:15 - Subjective Subjective: PGY-1 Medicine Progress Note for Dr. Tripp's service S/E at bedside. POD 1 for peg tube replacement. leaking of tube feeds noted after flushes. Limited ROS 2/2 patient clinical condition. Objective - Vital Signs/Intake and Output Vital Signs (last 24 hours): Temp Pulse Resp BP Pulse Ox 98.4 F 72 20 112/71 98 08/02/18 07:58 08/02/18 07:58 08/02/18 07:58 08/02/18 07:58 08/02/18 08:00 Intake and Output: 08/02/18 08/02/18 06:59 18:59 Intake Total 630 620 Balance 630 620 - Medications Medications: Current Medications Albuterol/Ipratropium (Duoneb 3 Mg/0.5 Mg (3 Ml) Ud) 3 ml INH RQ6 PRN PRN Reason: Shortness of Breath Dextrose (Dextrose 50% Inj) 0 ml IV STAT PRN; Protocol PRN Reason: Hypoglycemia Protocol Dextrose (Glutose 15) 0 gm PO ONCE PRN; Protocol PRN Reason: Hypoglycemia Protocol Glucagon (Glucagen Diagnostic Kit) 0 mg IM STAT PRN; Protocol PRN Reason: Hypoglycemia Protocol Heparin Sodium (Porcine) (Heparin) 5,000 units SC Q12H [facility] Last Admin: 08/02/18 08:30 Dose: 5,000 units Levetiracetam 1,000 mg/ Sodium (Chloride) 110 mls @ 420 mls/hr IVPB Q12H [facility] Last Admin: 08/02/18 07:30 Dose: 420 mls/hr Sodium Chloride (Sodium Chloride 0.9%) 1,000 mls @ 70 mls/hr IV .[id number] [facility] Last Admin: 08/02/18 00:03 Dose: 70 mls/hr Dextrose (Dextrose 5% In Water 1000 Ml) 1,000 mls @ 0 mls/hr IV .Q0M PRN; Protocol PRN Reason: Hypoglycemia Protocol Insulin Human Regular (Novolin R) 0 unit SC Q6H [facility]; Protocol Last Admin: 08/02/18 12:02 Dose: Not Given Lorazepam (Ativan) 0.5 mg IVP Q12H PRN PRN Reason: Anxiety Scopolamine (Transderm-Scop) 1 patch TD Q3D [facility] Last Admin: 07/31/18 20:31 Dose: 1 patch - Labs Labs: 08/02/18 07:35 08/02/18 07:35 Assessment and Plan - Assessment and Plan (Free Text) Assessment: Peg tube dysfunction GI- Dr. De La Fuente consulted- PEG tube replaced on 08/01/18 NS at 70 cc/ hr POD 1 of PEG tube replacement leaking noted from tube feeds Hx of seizure disorder Keppra IV 1000mg BID seizure precautions Type 2 DM On Low dose ISS hypoglycemic treatment protocol accuchecks q6h Hx of MS/brain injury with dysphagia and aphasia Patient is bedbound, nonexpressive Full code Turn every 2 hours aspiration and fall precautions Ativan .5mg ivp q12h for agitation PPX SCDs restart eliquis once peg tube dysfunction resolved Heparin 5000 u sc q12h Duonebs q6h prn for SOB Scopolamine patch Case discussed with Dr. Tripp PGY-1 Sinan Cook Dispo: leaking of tube feeds noted POD 1 of replacement of PEG tube; GI will contact POA for possible secondary intervention <Logan Tripp H - Last Filed: 08/02/18 14:45> Objective - Vital Signs/Intake and Output Vital Signs (last 24 hours): Temp Pulse Resp BP Pulse Ox 98.4 F 72 20 112/71 98 08/02/18 07:58 08/02/18 07:58 08/02/18 07:58 08/02/18 07:58 08/02/18 08:00 Intake and Output: 08/02/18 08/02/18 06:59 18:59 Intake Total 630 620 Balance 630 620 - Medications Medications: Current Medications Albuterol/Ipratropium (Duoneb 3 Mg/0.5 Mg (3 Ml) Ud) 3 ml INH RQ6 PRN PRN Reason: Shortness of Breath Dextrose (Dextrose 50% Inj) 0 ml IV STAT PRN; Protocol PRN Reason: Hypoglycemia Protocol Dextrose (Glutose 15) 0 gm PO ONCE PRN; Protocol PRN Reason: Hypoglycemia Protocol Glucagon (Glucagen Diagnostic Kit) 0 mg IM STAT PRN; Protocol PRN Reason: Hypoglycemia Protocol Heparin Sodium (Porcine) (Heparin) 5,000 units SC Q12H [facility] Last Admin: 08/02/18 08:30 Dose: 5,000 units Levetiracetam 1,000 mg/ Sodium (Chloride) 110 mls @ 420 mls/hr IVPB Q12H [facility] Last Admin: 08/02/18 07:30 Dose: 420 mls/hr Sodium Chloride (Sodium Chloride 0.9%) 1,000 mls @ 70 mls/hr IV .[id number] [facility] Last Admin: 08/02/18 14:39 Dose: 70 mls/hr Dextrose (Dextrose 5% In Water 1000 Ml) 1,000 mls @ 0 mls/hr IV .Q0M PRN; Protocol PRN Reason: Hypoglycemia Protocol Insulin Human Regular (Novolin R) 0 unit SC Q6H [facility]; Protocol Last Admin: 08/02/18 12:02 Dose: Not Given Lorazepam (Ativan) 0.5 mg IVP Q12H PRN PRN Reason: Anxiety Scopolamine (Transderm-Scop) 1 patch TD Q3D [facility] Last Admin: 07/31/18 20:31 Dose: 1 patch - Labs Labs: 08/02/18 07:35 08/02/18 07:35 Attending/Attestation - Attestation I have personally seen and examined this patient.: Yes I have fully participated in the care of the patient.: Yes I have reviewed all pertinent clinical information, including history, physical exam and plan: Yes Notes (Text): 08/02/18 14:44 Medical attending: Patient had replacment of PEG tube As mentioned previously the patient has been residing at skilled nursing He has a history of being non verbal and non resposnive - the reasons of which are not immediately clear. Logan Tripp
--- NOTE | 2018-08-02 13:33 | CP.PCM.PN ---
<ChelaLatriceprema - Last Filed: 08/02/18 13:30> Subjective - Date & Time of Evaluation Date of Evaluation: 08/02/18 Time of Evaluation: 06:50 - Subjective Subjective: PGY-4 GI Fellow Prog Note Pt lying in bed when seen this AM. PEG flushing without problems and tube feeds infuse, but concern remains about leaking around PEG site. Nursing later this AM states there was some spillage of water and food around site down accide ntally by nursing, clouding the picture. Unable to obtain ROS due to clinical condition Objective - Vital Signs/Intake and Output Vital Signs (last 24 hours): Temp Pulse Resp BP Pulse Ox 98.4 F 72 20 112/71 98 08/02/18 07:58 08/02/18 07:58 08/02/18 07:58 08/02/18 07:58 08/02/18 08:00 Intake and Output: 08/02/18 08/02/18 06:59 18:59 Intake Total 630 620 Balance 630 620 - Medications Medications: Current Medications Albuterol/Ipratropium (Duoneb 3 Mg/0.5 Mg (3 Ml) Ud) 3 ml INH RQ6 PRN PRN Reason: Shortness of Breath Dextrose (Dextrose 50% Inj) 0 ml IV STAT PRN; Protocol PRN Reason: Hypoglycemia Protocol Dextrose (Glutose 15) 0 gm PO ONCE PRN; Protocol PRN Reason: Hypoglycemia Protocol Glucagon (Glucagen Diagnostic Kit) 0 mg IM STAT PRN; Protocol PRN Reason: Hypoglycemia Protocol Heparin Sodium (Porcine) (Heparin) 5,000 units SC Q12H [facility] Last Admin: 08/02/18 08:30 Dose: 5,000 units Levetiracetam 1,000 mg/ Sodium (Chloride) 110 mls @ 420 mls/hr IVPB Q12H [facility] Last Admin: 08/02/18 07:30 Dose: 420 mls/hr Sodium Chloride (Sodium Chloride 0.9%) 1,000 mls @ 70 mls/hr IV .[id number] [facility] Last Admin: 08/02/18 00:03 Dose: 70 mls/hr Dextrose (Dextrose 5% In Water 1000 Ml) 1,000 mls @ 0 mls/hr IV .Q0M PRN; Protocol PRN Reason: Hypoglycemia Protocol Insulin Human Regular (Novolin R) 0 unit SC Q6H [facility]; Protocol Last Admin: 08/02/18 12:02 Dose: Not Given Lorazepam (Ativan) 0.5 mg IVP Q12H PRN PRN Reason: Anxiety Scopolamine (Transderm-Scop) 1 patch TD Q3D [facility] Last Admin: 07/31/18 20:31 Dose: 1 patch - Labs Labs: 08/02/18 07:35 08/02/18 07:35 - Constitutional Appears: Cachectic, Chronically Ill - ENT Exam ENT Exam: Mucous Membranes Dry. absent: Mucous Membranes Moist - Respiratory Exam Respiratory Exam: NORMAL BREATHING PATTERN. absent: Accessory Muscle Use - GI/Abdominal Exam GI & Abdominal Exam: Soft, Normal Bowel Sounds. absent: Bruit, Distended, Firm, Guarding, Tenderness, Mass, Organomegaly, Pulsatile Mass Additional comments: PEG site with some prolapse tract with mucousy, tube feeds around site. - Neurological Exam Additional comments: non verbal, multiple contractures. Assessment and Plan - Assessment and Plan (Free Text) Assessment: 37 yo BM with MS, h/o respiratory failure, aphasic, chronic PEG presenting with PEG "leaking." # PEG malfunction: H/o multiple dislodgements, last replaced on 06/23/18 with 20 F tube. Given firm, indurated area around stoma will obtain CT imaging to further evaluate prior to attempting replacement. Plan: - Unable to do CT due to extensive contractures per radiology - PEG replaced with 20 F tube at 6 cm on 08/01/18; however, concern for leak around tract despite tube placement within stomach remains - Will reassess tube later today - Plan to discuss likely new endoscopically placed PEG at site with POA if leaking persists Pt seen and examined with Dr. De La Fuente; please see attestation for further recs/c arben York, PGY-4 <Ayo De La Fuente - Last Filed: 08/02/18 16:41> Objective - Vital Signs/Intake and Output Vital Signs (last 24 hours): Temp Pulse Resp BP Pulse Ox 98.4 F 72 20 112/71 100 08/02/18 07:58 08/02/18 07:58 08/02/18 07:58 08/02/18 07:58 08/02/18 16:09 Intake and Output: 08/02/18 08/02/18 06:59 18:59 Intake Total 630 1665 Balance 630 1665 - Medications Medications: Current Medications Albuterol/Ipratropium (Duoneb 3 Mg/0.5 Mg (3 Ml) Ud) 3 ml INH RQ6 PRN PRN Reason: Shortness of Breath Dextrose (Dextrose 50% Inj) 0 ml IV STAT PRN; Protocol PRN Reason: Hypoglycemia Protocol Dextrose (Glutose 15) 0 gm PO ONCE PRN; Protocol PRN Reason: Hypoglycemia Protocol Glucagon (Glucagen Diagnostic Kit) 0 mg IM STAT PRN; Protocol PRN Reason: Hypoglycemia Protocol Heparin Sodium (Porcine) (Heparin) 5,000 units SC Q12H [facility] Last Admin: 08/02/18 08:30 Dose: 5,000 units Levetiracetam 1,000 mg/ Sodium (Chloride) 110 mls @ 420 mls/hr IVPB Q12H [facility] Last Admin: 08/02/18 07:30 Dose: 420 mls/hr Sodium Chloride (Sodium Chloride 0.9%) 1,000 mls @ 70 mls/hr IV .[id number] [facility] Last Admin: 08/02/18 14:39 Dose: 70 mls/hr Dextrose (Dextrose 5% In Water 1000 Ml) 1,000 mls @ 0 mls/hr IV .Q0M PRN; Protocol PRN Reason: Hypoglycemia Protocol Insulin Human Regular (Novolin R) 0 unit SC Q6H [facility]; Protocol Last Admin: 08/02/18 12:02 Dose: Not Given Lorazepam (Ativan) 0.5 mg IVP Q12H PRN PRN Reason: Anxiety Scopolamine (Transderm-Scop) 1 patch TD Q3D [facility] Last Admin: 07/31/18 20:31 Dose: 1 patch - Labs Labs: 08/02/18 07:35 08/02/18 07:35 Attending/Attestation - Attestation I have personally seen and examined this patient.: Yes I have fully participated in the care of the patient.: Yes I have reviewed all pertinent clinical information, including history, physical exam and plan: Yes Notes (Text): 08/02/18 16:37 I have seen and examined patient with GI fellow. s/p bedside gastrostomy tube replacement yesterday, however continued leakage of food content around stoma noted during initiation of feeding. There is no reported abdominal pain, nausea, vomiting, fever/chills. Review of vitals from today are normal. 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 Risks/benefits of this were carefully discussed at length with patient's family members who are agreeable to proceed with procedure. - NPO after midnight
[2018-08-02] MEDS ORDERED: Dextrose 5%/0.9% NS 1,000 ML IV SCH (17:15)
[2018-08-03] MEDS: (Novolin R) Insulin Human Regular 100 units/ml vial SC SCH ×4 (00:23→18:44)
[2018-08-03] MEDS: Sodium Chloride 0.9% 1,000 ML IV SCH (03:42)
[2018-08-03] MEDS: levETIRAcetam 1,000 MG in Sodium Chloride 0.9% 100 ML IVPB SCH ×2 (06:35→19:45)
[2018-08-03 08:14] LABS: BASO % 1.1 % (0.0-2.0); EOS # 0.2 K/uL (0.0-0.7); EOS % 5.9 % (0.0-4.0); HEMOGLOBIN 10.1 g/dL (12.0-18.0); LYMPH # 1.1 K/uL (1.0-4.3); LYMPH % 36.9 % (20.0-40.0); MEAN CELL VOLUME 81.3 fL (80.0-94.0); MEAN CORPUSCULAR HEMOGLOBIN 26.4 pg (27.0-31.0); MEAN CORPUSCULAR HGB CONC 32.5 g/dL (33.0-37.0); MEAN PLATELET VOLUME 11.2 fL (7.2-11.7); MONO # 0.4 K/uL (0.0-0.8); MONO % 12.5 % (0.0-10.0); NEUT # 1.3 K/uL (1.8-7.0); NEUT % 43.6 % (50.0-75.0); RBC 3.85 Mil/uL (4.40-5.90); RED CELL DISTRIBUTION WIDTH 15.2 % (11.5-14.5); WHITE BLOOD COUNT 2.9 K/uL (4.8-10.8)
[2018-08-03 08:34] LABS: ALB/GLOB RATIO 0.9 (1.0-2.1); ALBUMIN 3.3 g/dL (3.5-5.0); ALT/SGPT 24 U/L (21-72); AST/SGOT 24 U/L (17-59); BLOOD UREA NITROGEN 14 mg/dL (9-20); CALCIUM 8.6 mg/dl (8.6-10.4); GFR NON-AFRICAN AMERICAN > 60
[2018-08-03 09:00] LABS: INR 1.4; PROTHROMBIN TIME 15.6 SECONDS (9.7-12.2)
[2018-08-03] MEDS ORDERED: ceFAZolin IV 2 gm in Dextrose 2 GM/50 ML BAG IVPB SCH (11:30)
[2018-08-03] MEDS ORDERED: Sodium Chloride 0.9% 1,000 ML IV ONE ×2 (12:02)
--- NOTE | 2018-08-03 13:13 | CP.PCM.PN ---
<Merry Glover - Last Filed: 08/03/18 14:04> Subjective - Date & Time of Evaluation Date of Evaluation: 08/03/18 Time of Evaluation: 09:13 - Subjective Subjective: PGY-1 Merry Glover D.O. Medicine progress note for Dr. Tripp's service: Patient was seen and examined this morning. He is nonverbal at baseline and does not follow commands. He does not appear in acute distress. Patient's PEG feeds stopped yesterday for endoscopic replacement of PEG today. No adverse events reported by nursing. Objective - Vital Signs/Intake and Output Vital Signs (last 24 hours): Temp Pulse Resp BP Pulse Ox 97.9 F 42 L 19 87/74 L 100 08/03/18 09:05 08/03/18 09:05 08/03/18 09:05 08/03/18 09:05 08/03/18 09:05 Intake and Output: 08/03/18 08/03/18 06:59 18:59 Intake Total 600 320 Balance 600 320 - Medications Medications: Current Medications Albuterol/Ipratropium (Duoneb 3 Mg/0.5 Mg (3 Ml) Ud) 3 ml INH RQ6 PRN PRN Reason: Shortness of Breath Dextrose (Dextrose 50% Inj) 0 ml IV STAT PRN; Protocol PRN Reason: Hypoglycemia Protocol Dextrose (Glutose 15) 0 gm PO ONCE PRN; Protocol PRN Reason: Hypoglycemia Protocol Glucagon (Glucagen Diagnostic Kit) 0 mg IM STAT PRN; Protocol PRN Reason: Hypoglycemia Protocol Heparin Sodium (Porcine) (Heparin) 5,000 units SC Q12H [facility] Last Admin: 08/03/18 08:38 Dose: Not Given Levetiracetam 1,000 mg/ Sodium (Chloride) 110 mls @ 420 mls/hr IVPB Q12H [facility] Last Admin: 08/03/18 06:35 Dose: 420 mls/hr Dextrose (Dextrose 5% In Water 1000 Ml) 1,000 mls @ 0 mls/hr IV .Q0M PRN; Protocol PRN Reason: Hypoglycemia Protocol Dextrose/Sodium Chloride (Dextrose 5%/0.9% Ns 1000 Ml) 1,000 mls @ 40 mls/hr IV .Q24H [facility] Last Admin: 08/02/18 17:54 Dose: 40 mls/hr Potassium Chloride 20 meq/ (Sodium Chloride) 1,010 mls @ 70 mls/hr IV .[id number] [facility] Last Admin: 08/03/18 11:22 Dose: 70 mls/hr Cefazolin Sodium/Dextrose (Ancef Iv 2 Gm Duplex) 2 gm in 50 mls @ 100 mls/hr IVPB ONCE [facility]; Protocol Insulin Human Regular (Novolin R) 0 unit SC Q6H [facility]; Protocol Last Admin: 08/03/18 12:13 Dose: Not Given Lorazepam (Ativan) 0.5 mg IVP Q12H PRN PRN Reason: Anxiety Scopolamine (Transderm-Scop) 1 patch TD Q3D [facility] Last Admin: 07/31/18 20:31 Dose: 1 patch - Labs Labs: 08/03/18 08:04 08/03/18 08:04 PT 15.6 SECONDS (9.7-12.2) H 08/03/18 08:50 INR 1.4 08/03/18 08:50 - Constitutional Appears: No Acute Distress, Chronically Ill - Head Exam Head Exam: ATRAUMATIC, NORMAL INSPECTION - Eye Exam Additional comments: eyes open, looking up, not able to follow commands to test EOM - ENT Exam ENT Exam: Mucous Membranes Moist - Respiratory Exam Respiratory Exam: Clear to Ausculation Bilateral, NORMAL BREATHING PATTERN. absent: Respiratory Distress - Cardiovascular Exam Cardiovascular Exam: Bradycardia, REGULAR RHYTHM, +S1, +S2 Additional comments: vascular access L chest - GI/Abdominal Exam Additional comments: abdominal binder, PED tube site moist - Extremities Exam Additional comments: significantly contracted - Neurological Exam Neurological Exam: Altered (aphasic), Awake. absent: Normal Gait (bed bound), Oriented x3 - Skin Skin Exam: Normal Color, Warm Assessment and Plan - Assessment and Plan (Free Text) Assessment: Patient is a 37 yo male from longterm brought in for PEG tube malfunction. At baseline, patient is bed bound, aphasic, and does not follow commands. Gi replaced PEG on 08/01 but the site continued to leak. Plan for endoscopic replacement today 08/03. Plan: PEG tube dysfunction - New PEG placed on 08/01 but now leaking - Tube feeds held - Patient unable to get CT due to body contactures - Endoscopic PEG tube replacement scheduled for today 08/03 - GI consulted (Sudhakar) Seizure disorder - Seizure precautions - Keppra IV 1000mg BID Type 2 diabetes mellitus - Accuchecks Q6H - Hypoglycemic protocol - ISS Altered mental status at baseline - Patient from longterm - Unknown etiology, suspect TBI - Patient is bedbound, contracted, nonexpressive - Turn every 2 hours - Aspiration and fall precautions - Duoneb Q6H - Scopalamine patch Q3D - Ativan 0.5 mg IVP Q12H for agitation Ppx: VTE: SCDs, Heparin 5000 u SC Q12H GI: not indicated Code status: full code Case discussed with attending, Dr. Tripp. <Logan Tripp H - Last Filed: 08/03/18 16:44> Objective - Vital Signs/Intake and Output Vital Signs (last 24 hours): Temp Pulse Resp BP Pulse Ox 98.3 F 75 18 106/70 95 08/03/18 16:00 08/03/18 16:00 08/03/18 16:00 08/03/18 16:00 08/03/18 16:00 Intake and Output: 08/03/18 08/03/18 06:59 18:59 Intake Total 600 2720 Balance 600 2720 - Medications Medications: Current Medications Albuterol/Ipratropium (Duoneb 3 Mg/0.5 Mg (3 Ml) Ud) 3 ml INH RQ6 [facility] Dextrose (Dextrose 50% Inj) 0 ml IV STAT PRN; Protocol PRN Reason: Hypoglycemia Protocol Dextrose (Glutose 15) 0 gm PO ONCE PRN; Protocol PRN Reason: Hypoglycemia Protocol Glucagon (Glucagen Diagnostic Kit) 0 mg IM STAT PRN; Protocol PRN Reason: Hypoglycemia Protocol Heparin Sodium (Porcine) (Heparin) 5,000 units SC Q12H [facility] Last Admin: 08/03/18 08:38 Dose: Not Given Levetiracetam 1,000 mg/ Sodium (Chloride) 110 mls @ 420 mls/hr IVPB Q12H [facility] Last Admin: 08/03/18 06:35 Dose: 420 mls/hr Dextrose (Dextrose 5% In Water 1000 Ml) 1,000 mls @ 0 mls/hr IV .Q0M PRN; Protocol PRN Reason: Hypoglycemia Protocol Dextrose/Sodium Chloride (Dextrose 5%/0.9% Ns 1000 Ml) 1,000 mls @ 100 mls/hr IV .Q10H [facility] Insulin Human Regular (Novolin R) 0 unit SC Q6H [facility]; Protocol Last Admin: 08/03/18 12:13 Dose: Not Given Lorazepam (Ativan) 0.5 mg IVP Q12H PRN PRN Reason: Anxiety Scopolamine (Transderm-Scop) 1 patch TD Q3D [facility] Last Admin: 07/31/18 20:31 Dose: 1 patch - Labs Labs: 08/03/18 08:04 08/03/18 08:04 PT 15.6 SECONDS (9.7-12.2) H 08/03/18 08:50 INR 1.4 08/03/18 08:50 Attending/Attestation - Attestation I have personally seen and examined this patient.: Yes I have fully participated in the care of the patient.: Yes I have reviewed all pertinent clinical information, including history, physical exam and plan: Yes Notes (Text): 08/03/18 16:43 Medical attending: Patient was seen and examined by me earlier this morning with the medical office asst The patient later was not able to have the PEG exchanged and we were advised to consult surgery for evaluation Logan Tripp
[2018-08-03] MEDS ORDERED: ceFAZolin IV 2 gm in Dextrose 2 GM/50 ML BAG IVPB ONE (13:30)
[2018-08-03] MEDS ORDERED: Propofol 10 mg/ml Inj (20 ML) ONE (14:32)
[2018-08-03] MEDS ORDERED: Midazolam 2 MG/2 ML VIAL ONE (14:32)
--- NOTE | 2018-08-03 16:21 | CP.PCM.CON ---
History of Present Illness - History of Present Illness History of Present Illness: Surgery Consult Note for Dr. Reid. Unable to obtain H&P from patient, as patient is chronically aphasic from medical issues. From chart review, 37 year old male with PMHx of respiratory failure, seizure disorder, MS, DM2, aphasia, dysphagia, obstructive uropothy who is aphasic, brought from [facility] to ED for PEG tube leaking. GI attempted new PEG tube placement; however, they were unable to have have visualization for new placem ent. Surgery consulted for gastrostomy tube placement PMH: respiratory failure, seizure disorder, MS, DM2, aphasia, dysphagia, obstructive uropothy, aphasia PSH: endoscopy, peg tube Meds: See EMR Allergies: NKDA Social hx: no reported tobacco, alcohol or drug use as per prior chart Family hx: unable to obtain Review of Systems - Review of Systems Systems not reviewed;Unavailable: Altered Mental Status Past Patient History - Past Medical History & Family History Past Medical History?: Yes - Past Social History Smoking Status: Never Smoked - CARDIAC Hx Cardiac Disorders: No - PULMONARY Hx Respiratory Disorders: Yes Other/Comment: HX RESPIRATORY FAILURE HX TRACH - NEUROLOGICAL Hx Multiple Sclerosis: Yes Hx Seizures: Yes - HEENT Hx HEENT Problems: No - RENAL Hx Chronic Kidney Disease: No - ENDOCRINE/METABOLIC Hx Endocrine Disorders: Yes Hx Diabetes Mellitus Type 2: Yes - HEMATOLOGICAL/ONCOLOGICAL Hx Blood Disorders: No - INTEGUMENTARY Hx Dermatological Problems: Yes Other/Comment: PRESSURE ULCERS - MUSCULOSKELETAL/RHEUMATOLOGICAL Hx Musculoskeletal Disorders: Yes Hx Falls: No Other/Comment: CONTRACTED - GASTROINTESTINAL Hx Gastrointestinal Disorders: Yes Hx Gastroesophageal Reflux: Yes Other/Comment: DYSPHAGIA PEG - GENITOURINARY/GYNECOLOGICAL Hx Genitourinary Disorders: No - PSYCHIATRIC Hx Depression: Yes (PER CHART MOOD DISORDER DUE TO DX/CONDITION) Hx Substance Use: No - SURGICAL HISTORY Hx Surgeries: Yes Other/Comment: PEG TUBE INSERTION, TRACHEOSTOMY - ANESTHESIA Hx Anesthesia: Yes Hx Anesthesia Reactions: No Hx Malignant Hyperthermia: No Meds Allergies/Adverse Reactions: Allergies Allergy/AdvReac Type Severity Reaction Status Date / Time No Known Allergies Allergy Verified 07/31/18 16:05 - Medications Medications: Current Medications Albuterol/Ipratropium (Duoneb 3 Mg/0.5 Mg (3 Ml) Ud) 3 ml INH RQ6 [facility] Dextrose (Dextrose 50% Inj) 0 ml IV STAT PRN; Protocol PRN Reason: Hypoglycemia Protocol Dextrose (Glutose 15) 0 gm PO ONCE PRN; Protocol PRN Reason: Hypoglycemia Protocol Glucagon (Glucagen Diagnostic Kit) 0 mg IM STAT PRN; Protocol PRN Reason: Hypoglycemia Protocol Heparin Sodium (Porcine) (Heparin) 5,000 units SC Q12H [facility] Last Admin: 08/03/18 08:38 Dose: Not Given Levetiracetam 1,000 mg/ Sodium (Chloride) 110 mls @ 420 mls/hr IVPB Q12H [facility] Last Admin: 08/03/18 06:35 Dose: 420 mls/hr Dextrose (Dextrose 5% In Water 1000 Ml) 1,000 mls @ 0 mls/hr IV .Q0M PRN; Protocol PRN Reason: Hypoglycemia Protocol Insulin Human Regular (Novolin R) 0 unit SC Q6H [facility]; Protocol Last Admin: 08/03/18 12:13 Dose: Not Given Lorazepam (Ativan) 0.5 mg IVP Q12H PRN PRN Reason: Anxiety Scopolamine (Transderm-Scop) 1 patch TD Q3D [facility] Last Admin: 07/31/18 20:31 Dose: 1 patch Physical Exam - Constitutional Appears: No Acute Distress - Head Exam Head Exam: NORMAL INSPECTION - ENT Exam ENT Exam: Mucous Membranes Moist - Respiratory Exam Respiratory Exam: NORMAL BREATHING PATTERN - Cardiovascular Exam Additional comments: RR - GI/Abdominal Exam GI & Abdominal Exam: Soft Additional comments: granulation tissue at site of previous PEG tube insertion - Extremities Exam Additional comments: B/L UE & LE contracture of limbs Results - Vital Signs Recent Vital Signs: Last Vital Signs Temp 96.8 F L 08/03/18 14:50 Pulse 50 L 08/03/18 15:20 Resp 20 08/03/18 15:20 BP 103/68 08/03/18 15:20 Pulse Ox 97 08/03/18 15:20 - Labs Result Diagrams: 08/03/18 08:04 08/03/18 08:04 Labs: Laboratory Results - last 24 hr 08/02/18 08/02/18 08/03/18 11:59 21:15 00:19 WBC RBC Hgb Hct MCV MCH MCHC RDW Plt Count MPV Neut % (Auto) Lymph % (Auto) Frontier % (Auto) Eos % (Auto) Baso % (Auto) Neut # (Auto) Lymph # (Auto) Frontier # (Auto) Eos # (Auto) Baso # (Auto) PT INR Sodium Potassium Chloride Carbon Dioxide Anion Gap BUN Creatinine Est GFR ( Amer) Est GFR (Non-Af Amer) POC Glucose (mg/dL) 100 99 84 Random Glucose Calcium Total Bilirubin AST ALT Alkaline Phosphatase Total Protein Albumin Globulin Albumin/Globulin Ratio 08/03/18 08/03/18 08/03/18 05:34 08:04 08:04 WBC 2.9 L RBC 3.85 L Hgb 10.1 L Hct 31.3 L MCV 81.3 MCH 26.4 L MCHC 32.5 L RDW 15.2 H Plt Count 177 MPV 11.2 Neut % (Auto) 43.6 L Lymph % (Auto) 36.9 Frontier % (Auto) 12.5 H Eos % (Auto) 5.9 H Baso % (Auto) 1.1 Neut # (Auto) 1.3 L Lymph # (Auto) 1.1 Frontier # (Auto) 0.4 Eos # (Auto) 0.2 Baso # (Auto) 0.0 PT INR Sodium 144 Potassium 3.4 L Chloride 111 H Carbon Dioxide 29 Anion Gap 8 L BUN 14 Creatinine 0.5 L Est GFR ( Amer) > 60 Est GFR (Non-Af Amer) > 60 POC Glucose (mg/dL) 84 Random Glucose 79 Calcium 8.6 Total Bilirubin 0.3 AST 24 ALT 24 Alkaline Phosphatase 106 Total Protein 6.9 Albumin 3.3 L Globulin 3.5 Albumin/Globulin Ratio 0.9 L 08/03/18 08/03/18 08:50 11:16 WBC RBC Hgb Hct MCV MCH MCHC RDW Plt Count MPV Neut % (Auto) Lymph % (Auto) Frontier % (Auto) Eos % (Auto) Baso % (Auto) Neut # (Auto) Lymph # (Auto) Frontier # (Auto) Eos # (Auto) Baso # (Auto) PT 15.6 H INR 1.4 Sodium Potassium Chloride Carbon Dioxide Anion Gap BUN Creatinine Est GFR ( Amer) Est GFR (Non-Af Amer) POC Glucose (mg/dL) 88 Random Glucose Calcium Total Bilirubin AST ALT Alkaline Phosphatase Total Protein Albumin Globulin Albumin/Globulin Ratio Assessment & Plan - Assessment and Plan (Free Text) Assessment: 37 aphasic male, consulted for open gastrostomy tube placement: Plan: open G tube tuesday medical optimization and clearance d/w Dr. Franklin Romna, PGY1
[2018-08-03] MEDS: Dextrose 5%/0.9% NS 1,000 ML IV SCH (16:50)
--- NOTE | 2018-08-03 17:37 | CP.PCM.PN ---
Subjective - Date & Time of Evaluation Date of Evaluation: 08/03/18 Time of Evaluation: 17:31 - Subjective Subjective: Patient seen and examined. No acute events overnight. s/p EGD with attempted PEG replacement, not successful due to inadequate transillumination and 1:1 pressure. Objective - Vital Signs/Intake and Output Vital Signs (last 24 hours): Temp Pulse Resp BP Pulse Ox 98.3 F 75 18 106/70 95 08/03/18 16:00 08/03/18 16:00 08/03/18 16:00 08/03/18 16:00 08/03/18 16:00 Intake and Output: 08/03/18 08/03/18 06:59 18:59 Intake Total 600 2720 Balance 600 2720 - Medications Medications: Current Medications Albuterol/Ipratropium (Duoneb 3 Mg/0.5 Mg (3 Ml) Ud) 3 ml INH RQ6 [facility] Dextrose (Dextrose 50% Inj) 0 ml IV STAT PRN; Protocol PRN Reason: Hypoglycemia Protocol Dextrose (Glutose 15) 0 gm PO ONCE PRN; Protocol PRN Reason: Hypoglycemia Protocol Glucagon (Glucagen Diagnostic Kit) 0 mg IM STAT PRN; Protocol PRN Reason: Hypoglycemia Protocol Heparin Sodium (Porcine) (Heparin) 5,000 units SC Q12H [facility] Last Admin: 08/03/18 08:38 Dose: Not Given Levetiracetam 1,000 mg/ Sodium (Chloride) 110 mls @ 420 mls/hr IVPB Q12H [facility] Last Admin: 08/03/18 06:35 Dose: 420 mls/hr Dextrose (Dextrose 5% In Water 1000 Ml) 1,000 mls @ 0 mls/hr IV .Q0M PRN; Protocol PRN Reason: Hypoglycemia Protocol Dextrose/Sodium Chloride (Dextrose 5%/0.9% Ns 1000 Ml) 1,000 mls @ 100 mls/hr IV .Q10H [facility] Insulin Human Regular (Novolin R) 0 unit SC Q6H [facility]; Protocol Last Admin: 08/03/18 12:13 Dose: Not Given Lorazepam (Ativan) 0.5 mg IVP Q12H PRN PRN Reason: Anxiety Scopolamine (Transderm-Scop) 1 patch TD Q3D [facility] Last Admin: 07/31/18 20:31 Dose: 1 patch - Labs Labs: 08/03/18 08:04 02/07/19 08:04 PT 15.6 SECONDS (9.7-12.2) H 08/03/18 08:50 INR 1.4 08/03/18 08:50 Assessment and Plan - Assessment and Plan (Free Text) Assessment: MS, bedbound PEG malfunction, enterocutaneous fistula Plan: - NPO - Attempted endoscopic PEG replacement today was not successful - Given current tube malfunction with presence of suspected enterocutaneous fistula, existing tube was removed - Ideally would favor CT imaging for further evaluation, not able to perform given contracted state - Suggest surgical consultation for possible tube placement - Suggest wound care evaluation - No further GI intervention planned, will sign off case. Please reconsult as n adelia, thank you.
[2018-08-04] MEDS: (Novolin R) Insulin Human Regular 100 units/ml vial SC SCH ×4 (00:05→18:16)
[2018-08-04] MEDS: Dextrose 5%/0.9% NS 1,000 ML IV SCH ×3 (02:14→21:00)
[2018-08-04] MEDS: levETIRAcetam 1,000 MG in Sodium Chloride 0.9% 100 ML IVPB SCH ×2 (06:53→20:20)
[2018-08-04] MEDS: Albuterol-Ipratrop 3 mg / 0.5 (3 ml) UD INH SCH ×3 (07:15→20:12)
[2018-08-04 07:16] LABS: BASO % 0.2 % (0.0-2.0); EOS # 0.2 K/uL (0.0-0.7); EOS % 6.9 % (0.0-4.0); HEMOGLOBIN 10.3 g/dL (12.0-18.0); LYMPH # 1.4 K/uL (1.0-4.3); LYMPH % 43.4 % (20.0-40.0); MEAN CELL VOLUME 81.1 fL (80.0-94.0); MEAN CORPUSCULAR HEMOGLOBIN 26.1 pg (27.0-31.0); MEAN CORPUSCULAR HGB CONC 32.2 g/dL (33.0-37.0); MONO # 0.3 K/uL (0.0-0.8); MONO % 9.7 % (0.0-10.0); NEUT # 1.3 K/uL (1.8-7.0); NEUT % 39.8 % (50.0-75.0); RBC 3.95 Mil/uL (4.40-5.90); RED CELL DISTRIBUTION WIDTH 15.2 % (11.5-14.5); WHITE BLOOD COUNT 3.3 K/uL (4.8-10.8)
--- NOTE | 2018-08-04 07:17 | CP.PCM.PN ---
<Merry Glover - Last Filed: 08/04/18 13:33> Subjective - Date & Time of Evaluation Date of Evaluation: 08/04/18 Time of Evaluation: 07:14 - Subjective Subjective: PGY-1 Merry Glover D.O. Medicine progress note for Dr. Tripp's service: Patient was seen and examined this morning. No adverse events reported by nursing. He is sleeping. Responsive to sternal rub. Nonverbal at baseline. GI unable to insert PEG endoscopically yesterday. Plan for surgical insertion Tuesday. Objective - Vital Signs/Intake and Output Vital Signs (last 24 hours): Temp Pulse Resp BP Pulse Ox 98.1 F 57 L 20 122/76 100 08/03/18 23:15 08/03/18 23:15 08/03/18 23:15 08/03/18 23:15 08/03/18 23:15 Intake and Output: 08/04/18 08/04/18 06:59 18:59 Intake Total 800 800 Balance 800 800 - Medications Medications: Current Medications Albuterol/Ipratropium (Duoneb 3 Mg/0.5 Mg (3 Ml) Ud) 3 ml INH RQ6 [facility] Dextrose (Dextrose 50% Inj) 0 ml IV STAT PRN; Protocol PRN Reason: Hypoglycemia Protocol Dextrose (Glutose 15) 0 gm PO ONCE PRN; Protocol PRN Reason: Hypoglycemia Protocol Glucagon (Glucagen Diagnostic Kit) 0 mg IM STAT PRN; Protocol PRN Reason: Hypoglycemia Protocol Heparin Sodium (Porcine) (Heparin) 5,000 units SC Q12H [facility] Last Admin: 08/03/18 19:45 Dose: 5,000 units Levetiracetam 1,000 mg/ Sodium (Chloride) 110 mls @ 420 mls/hr IVPB Q12H [facility] Last Admin: 08/04/18 06:53 Dose: 420 mls/hr Dextrose (Dextrose 5% In Water 1000 Ml) 1,000 mls @ 0 mls/hr IV .Q0M PRN; Protocol PRN Reason: Hypoglycemia Protocol Dextrose/Sodium Chloride (Dextrose 5%/0.9% Ns 1000 Ml) 1,000 mls @ 100 mls/hr IV .Q10H [facility] Last Admin: 08/04/18 02:14 Dose: 100 mls/hr Insulin Human Regular (Novolin R) 0 unit SC Q6H [facility]; Protocol Last Admin: 08/04/18 06:00 Dose: Not Given Lorazepam (Ativan) 0.5 mg IVP Q12H PRN PRN Reason: Anxiety Scopolamine (Transderm-Scop) 1 patch TD Q3D [facility] Last Admin: 07/31/18 20:31 Dose: 1 patch - Labs Labs: 08/03/18 08:04 08/03/18 08:04 PT 15.6 SECONDS (9.7-12.2) H 08/03/18 08:50 INR 1.4 08/03/18 08:50 - Additional Findings Additional findings: - Constitutional Appears: No Acute Distress, Chronically Ill - Head Exam Head Exam: ATRAUMATIC, NORMAL INSPECTION - ENT Exam ENT Exam: Mucous Membranes Moist - Respiratory Exam Respiratory Exam: Clear to Ausculation Bilateral, NORMAL BREATHING PATTERN. absent: Respiratory Distress - Cardiovascular Exam Cardiovascular Exam: Bradycardia, REGULAR RHYTHM, +S1, +S2 Additional comments: vascular access L chest - GI/Abdominal Exam Additional comments: abdominal binder, PEG removed - Extremities Exam Additional comments: significantly contracted - Neurological Exam Neurological Exam: Altered (aphasic), Awake. absent: Normal Gait (bed bound), Oriented x3 - Skin Skin Exam: Normal Color, Warm Assessment and Plan - Assessment and Plan (Free Text) Assessment: Patient is a 37 yo [facility] brought in for PEG tube malfunction. At baseline, patient is bed bound, aphasic, and does not follow commands. GI replaced PEG on 08/01 but the site continued to leak. Unsuccessful endoscopic replacement 08/03 by GI. Surgery consulted- plan for open G tube insertion on . Plan: PEG tube dysfunction - New PEG placed on 08/01 but began to leak- removed 08/03 - Endoscopic PEG tube replacement unsuccessful 08/03 - Plan for Open G tube Monday 08/07 - Increase D5NS to 120 mL/hr - Patient unable to get CT to eval for fistula due to body contactures - GI consulted (Sudhakar) - Surgery consulted ([place]) Anemia, stable- suspect dilutional - No signs of active bleeding - Monitor CBC Seizure disorder - Seizure precautions - Keppra IV 1000mg BID - Replete electrolytes PRN (hypokalemia, hypomagnesemia) Type 2 diabetes mellitus - Accuchecks Q6H - Hypoglycemic protocol - ISS Altered mental status at baseline - Patient from [facility] - Unknown etiology, suspect TBI vs seizures - Patient is bedbound, contracted, nonexpressive - Turn every 2 hours - Daily skin checks - Aspiration and fall precautions - Duoneb Q6H - Scopalamine patch Q3D- held due to episode of hypotension - Ativan 0.5 mg IVP Q12H for agitation- patient has not required Ppx: VTE: SCDs, Heparin 5000 u SC Q12H GI: not indicated Code status: full code Case discussed with attending, Dr. Tripp. <Logan Tripp H - Last Filed: 08/04/18 16:21> Objective - Vital Signs/Intake and Output Vital Signs (last 24 hours): Temp Pulse Resp BP Pulse Ox 98.3 F 58 L 20 92/61 L 95 08/04/18 15:05 08/04/18 15:05 08/04/18 15:05 08/04/18 15:05 08/04/18 15:05 Intake and Output: 08/04/18 08/04/18 06:59 18:59 Intake Total 800 1500 Balance 800 1500 - Medications Medications: Current Medications Albuterol/Ipratropium (Duoneb 3 Mg/0.5 Mg (3 Ml) Ud) 3 ml INH RQ6 [facility] Last Admin: 08/04/18 13:30 Dose: 3 ml Dextrose (Dextrose 50% Inj) 0 ml IV STAT PRN; Protocol PRN Reason: Hypoglycemia Protocol Dextrose (Glutose 15) 0 gm PO ONCE PRN; Protocol PRN Reason: Hypoglycemia Protocol Glucagon (Glucagen Diagnostic Kit) 0 mg IM STAT PRN; Protocol PRN Reason: Hypoglycemia Protocol Heparin Sodium (Porcine) (Heparin) 5,000 units SC Q12H [facility] Last Admin: 08/04/18 08:05 Dose: 5,000 units Levetiracetam 1,000 mg/ Sodium (Chloride) 110 mls @ 420 mls/hr IVPB Q12H [facility] Last Admin: 08/04/18 06:53 Dose: 420 mls/hr Dextrose (Dextrose 5% In Water 1000 Ml) 1,000 mls @ 0 mls/hr IV .Q0M PRN; Protocol PRN Reason: Hypoglycemia Protocol Dextrose/Sodium Chloride (Dextrose 5%/0.9% Ns 1000 Ml) 1,000 mls @ 120 mls/hr IV .Q8H20M [facility] Last Admin: 08/04/18 14:13 Dose: 120 mls/hr Insulin Human Regular (Novolin R) 0 unit SC Q6H [facility]; Protocol Last Admin: 08/04/18 12:01 Dose: Not Given Lorazepam (Ativan) 0.5 mg IVP Q12H PRN PRN Reason: Anxiety Scopolamine (Transderm-Scop) 1 patch TD Q3D [facility] Last Admin: 07/31/18 20:31 Dose: 1 patch - Labs Labs: 08/04/18 07:00 08/04/18 07:00 PT 15.6 SECONDS (9.7-12.2) H 08/03/18 08:50 INR 1.4 08/03/18 08:50 Attending/Attestation - Attestation I have personally seen and examined this patient.: Yes I have fully participated in the care of the patient.: Yes I have reviewed all pertinent clinical information, including history, physical exam and plan: Yes
[2018-08-04 07:38] LABS: ALBUMIN 3.2 g/dL (3.5-5.0); ALT/SGPT 20 U/L (21-72); AST/SGOT 20 U/L (17-59); BLOOD UREA NITROGEN 7 mg/dL (9-20); CALCIUM 8.4 mg/dl (8.6-10.4); GFR NON-AFRICAN AMERICAN > 60
[2018-08-04] MEDS ORDERED: Magnesium Sulfate 1 gm in D5W 1 GM/100 ML BAG IVPB ONE (07:42)
[2018-08-04] MEDS ORDERED: Potassium Phosphate 15 MMOLE in Sodium Chloride 0.9% 250 ML IVPB ONE ×2 (09:19→13:00)
--- NOTE | 2018-08-04 09:36 | CP.PCM.PN ---
Subjective - Date & Time of Evaluation Date of Evaluation: 08/04/18 Time of Evaluation: 07:00 - Subjective Subjective: GENERAL SURGERY PROGRESS NOTE FOR DR. NOEL Patient seen and examined at bedside. Pt non verbal. Objective - Vital Signs/Intake and Output Vital Signs (last 24 hours): Temp Pulse Resp BP Pulse Ox 98.1 F 53 L 22 120/78 96 08/04/18 08:00 08/04/18 08:00 08/04/18 08:00 08/04/18 08:00 08/04/18 08:00 Intake and Output: 08/04/18 08/04/18 06:59 18:59 Intake Total 800 800 Balance 800 800 - Medications Medications: Current Medications Albuterol/Ipratropium (Duoneb 3 Mg/0.5 Mg (3 Ml) Ud) 3 ml INH RQ6 [facility] Last Admin: 08/04/18 07:15 Dose: 3 ml Dextrose (Dextrose 50% Inj) 0 ml IV STAT PRN; Protocol PRN Reason: Hypoglycemia Protocol Dextrose (Glutose 15) 0 gm PO ONCE PRN; Protocol PRN Reason: Hypoglycemia Protocol Glucagon (Glucagen Diagnostic Kit) 0 mg IM STAT PRN; Protocol PRN Reason: Hypoglycemia Protocol Heparin Sodium (Porcine) (Heparin) 5,000 units SC Q12H [facility] Last Admin: 08/03/18 19:45 Dose: 5,000 units Levetiracetam 1,000 mg/ Sodium (Chloride) 110 mls @ 420 mls/hr IVPB Q12H [facility] Last Admin: 08/04/18 06:53 Dose: 420 mls/hr Dextrose (Dextrose 5% In Water 1000 Ml) 1,000 mls @ 0 mls/hr IV .Q0M PRN; Protocol PRN Reason: Hypoglycemia Protocol Dextrose/Sodium Chloride (Dextrose 5%/0.9% Ns 1000 Ml) 1,000 mls @ 100 mls/hr IV .Q10H [facility] Last Admin: 08/04/18 02:14 Dose: 100 mls/hr Potassium Chloride (Potassium Chloride 20 Meq/100 Ml) 20 meq in 100 mls @ 50 mls/hr IVPB ONCE ONE Stop: 08/04/18 09:59 Last Admin: 08/04/18 08:44 Dose: 50 mls/hr Potassium Chloride (Potassium Chloride 20 Meq/100 Ml) 20 meq in 100 mls @ 50 mls/hr IVPB ONCE ONE Stop: 08/04/18 11:59 Potassium Phosphate 15 mmole/ (Sodium Chloride) 255 mls @ 42.5 mls/hr IVPB ONCE ONE Stop: 08/04/18 15:18 Insulin Human Regular (Novolin R) 0 unit SC Q6H [facility]; Protocol Last Admin: 08/04/18 06:00 Dose: Not Given Lorazepam (Ativan) 0.5 mg IVP Q12H PRN PRN Reason: Anxiety Scopolamine (Transderm-Scop) 1 patch TD Q3D [facility] Last Admin: 07/31/18 20:31 Dose: 1 patch - Labs Labs: 08/04/18 07:00 08/04/18 07:00 PT 15.6 SECONDS (9.7-12.2) H 08/03/18 08:50 INR 1.4 08/03/18 08:50 - Constitutional Appears: Non-toxic, No Acute Distress - Head Exam Head Exam: ATRAUMATIC, NORMAL INSPECTION - Eye Exam Eye Exam: EOMI, Normal appearance - Respiratory Exam Respiratory Exam: NORMAL BREATHING PATTERN. absent: Respiratory Distress - Cardiovascular Exam Cardiovascular Exam: +S1, +S2 - GI/Abdominal Exam GI & Abdominal Exam: Soft. absent: Distended, Firm, Guarding, Rigid, Tenderness Additional comments: Granulation tissue in LUQ at previous PEG site - Neurological Exam Neurological Exam: Awake. absent: Oriented x3 Assessment and Plan - Assessment and Plan (Free Text) Assessment: 37yo M with PMHx of respiratory failure, seizure disorder, MS, DM, aphasia who had a PEG malfunction and possible enterocutaneous fistula. GI attempted endoscopic PEG replacement on 08/03 but was unsuccessful. - Plan for OR Monday 08/07 @11:00 - Needs medical clearance - NPO past midnight on Tuesday - Discussed plan with Dr. Franklin Funez PGY-4
[2018-08-05] MEDS: (Novolin R) Insulin Human Regular 100 units/ml vial SC SCH ×4 (00:15→18:09)
[2018-08-05] MEDS: Albuterol-Ipratrop 3 mg / 0.5 (3 ml) UD INH SCH ×4 (01:24→19:54)
--- NOTE | 2018-08-05 04:04 | CP.PCM.PN ---
<JoeySinan - Last Filed: 08/05/18 04:01> Subjective - Date & Time of Evaluation Date of Evaluation: 08/05/18 Time of Evaluation: 04:01 - Subjective Subjective: PGY-1 Medicine Progress note for Dr. Tripp's service S/E at bedside. Limited ROS Objective - Vital Signs/Intake and Output Vital Signs (last 24 hours): Temp Pulse Resp BP Pulse Ox 98.4 F 54 L 20 105/41 L 100 08/04/18 23:30 08/04/18 23:30 08/04/18 23:30 08/04/18 23:30 08/04/18 23:30 Intake and Output: 08/04/18 08/05/18 18:59 06:59 Intake Total 1500 960 Balance 1500 960 - Medications Medications: Current Medications Albuterol/Ipratropium (Duoneb 3 Mg/0.5 Mg (3 Ml) Ud) 3 ml INH RQ6 [facility] Last Admin: 08/05/18 01:24 Dose: Not Given Dextrose (Dextrose 50% Inj) 0 ml IV STAT PRN; Protocol PRN Reason: Hypoglycemia Protocol Dextrose (Glutose 15) 0 gm PO ONCE PRN; Protocol PRN Reason: Hypoglycemia Protocol Glucagon (Glucagen Diagnostic Kit) 0 mg IM STAT PRN; Protocol PRN Reason: Hypoglycemia Protocol Heparin Sodium (Porcine) (Heparin) 5,000 units SC Q12H [facility] Last Admin: 08/04/18 20:20 Dose: 5,000 units Levetiracetam 1,000 mg/ Sodium (Chloride) 110 mls @ 420 mls/hr IVPB Q12H [facility] Last Admin: 08/04/18 20:20 Dose: 420 mls/hr Dextrose (Dextrose 5% In Water 1000 Ml) 1,000 mls @ 0 mls/hr IV .Q0M PRN; Protocol PRN Reason: Hypoglycemia Protocol Dextrose/Sodium Chloride (Dextrose 5%/0.9% Ns 1000 Ml) 1,000 mls @ 120 mls/hr IV .Q8H20M [facility] Last Admin: 08/04/18 21:00 Dose: 120 mls/hr Insulin Human Regular (Novolin R) 0 unit SC Q6H [facility]; Protocol Last Admin: 08/05/18 00:15 Dose: Not Given Lorazepam (Ativan) 0.5 mg IVP Q12H PRN PRN Reason: Anxiety Scopolamine (Transderm-Scop) 1 patch TD Q3D [facility] Last Admin: 07/31/18 20:31 Dose: 1 patch - Labs Labs: 08/04/18 07:00 08/04/18 07:00 PT 15.6 SECONDS (9.7-12.2) H 08/03/18 08:50 INR 1.4 08/03/18 08:50 - Additional Findings Additional findings: - Constitutional Appears: No Acute Distress, Chronically Ill - Head Exam Head Exam: ATRAUMATIC, NORMAL INSPECTION - ENT Exam ENT Exam: Mucous Membranes Moist - Respiratory Exam Respiratory Exam: Clear to Ausculation Bilateral, NORMAL BREATHING PATTERN. absent: Respiratory Distress - Cardiovascular Exam Cardiovascular Exam: Bradycardia, REGULAR RHYTHM, +S1, +S2 Additional comments: vascular access L chest - GI/Abdominal Exam Additional comments: abdominal binder, PEG removed - Extremities Exam Additional comments: significantly contracted - Neurological Exam Neurological Exam: Altered (aphasic), Awake. absent: Normal Gait (bed bound), Oriented x3 - Skin Skin Exam: Normal Color, Warm Assessment and Plan - Assessment and Plan (Free Text) Assessment: Patient is a 37 yo male from [place] [facility] brought in for PEG tube malfunction. At baseline, patient is bed bound, aphasic, and does not follow commands. GI replaced PEG on 08/01 but the site continued to leak. Unsuccessful endoscopic replacement 08/03 by GI. Surgery consulted- plan for open G tube insertion on 08/07. Plan: PEG tube dysfunction - New PEG placed on 08/01 but began to leak- removed 08/03 - Endoscopic PEG tube replacement unsuccessful 08/03 - Plan for Open G tube Monday 08/07 - Increase D5NS to 120 mL/hr - Patient unable to get CT to eval for fistula due to body contactures - GI consulted (Sudhakar) - Surgery consulted ([place]) Anemia, stable- suspect dilutional - No signs of active bleeding - Monitor CBC Seizure disorder - Seizure precautions - Keppra IV 1000mg BID - Replete electrolytes PRN (hypokalemia, hypomagnesemia) Type 2 diabetes mellitus - Accuchecks Q6H - Hypoglycemic protocol - ISS Altered mental status at baseline - Patient from [place] [facility] - Unknown etiology, suspect TBI vs seizures - Patient is bedbound, contracted, nonexpressive - Turn every 2 hours - Daily skin checks - Aspiration and fall precautions - Duoneb Q6H - Scopalamine patch Q3D- held due to episode of hypotension - Ativan 0.5 mg IVP Q12H for agitation- patient has not required Ppx: VTE: SCDs, Heparin 5000 u SC Q12H GI: not indicated Code status: full code Case discussed with attending, Dr. Tripp. PGY-1 Sinan Cook <Logan Tripp H - Last Filed: 08/05/18 10:40> Objective - Vital Signs/Intake and Output Vital Signs (last 24 hours): Temp Pulse Resp BP Pulse Ox 98.1 F 73 20 108/64 98 08/05/18 07:00 08/05/18 07:00 08/05/18 07:00 08/05/18 07:00 08/05/18 07:00 Intake and Output: 08/05/18 08/05/18 06:59 18:59 Intake Total 960 Balance 960 - Medications Medications: Current Medications Albuterol/Ipratropium (Duoneb 3 Mg/0.5 Mg (3 Ml) Ud) 3 ml INH RQ6 [facility] Last Admin: 08/05/18 07:35 Dose: 3 ml Dextrose (Dextrose 50% Inj) 0 ml IV STAT PRN; Protocol PRN Reason: Hypoglycemia Protocol Dextrose (Glutose 15) 0 gm PO ONCE PRN; Protocol PRN Reason: Hypoglycemia Protocol Glucagon (Glucagen Diagnostic Kit) 0 mg IM STAT PRN; Protocol PRN Reason: Hypoglycemia Protocol Heparin Sodium (Porcine) (Heparin) 5,000 units SC Q12H [facility] Last Admin: 08/05/18 07:18 Dose: 5,000 units Levetiracetam 1,000 mg/ Sodium (Chloride) 110 mls @ 420 mls/hr IVPB Q12H [facility] Last Admin: 08/05/18 07:49 Dose: 420 mls/hr Dextrose (Dextrose 5% In Water 1000 Ml) 1,000 mls @ 0 mls/hr IV .Q0M PRN; Prot ocol PRN Reason: Hypoglycemia Protocol Dextrose/Sodium Chloride (Dextrose 5%/0.9% Ns 1000 Ml) 1,000 mls @ 120 mls/hr IV .Q8H20M [facility] Last Admin: 08/05/18 05:40 Dose: 120 mls/hr Potassium Chloride (Potassium Chloride 20 Meq/100 Ml) 20 meq in 100 mls @ 50 mls/hr IVPB ONCE ONE Stop: 08/05/18 12:35 Potassium Chloride (Potassium Chloride 20 Meq/100 Ml) 20 meq in 100 mls @ 50 mls/hr IVPB ONCE ONE Stop: 08/05/18 14:59 Insulin Human Regular (Novolin R) 0 unit SC Q6H [facility]; Protocol Last Admin: 08/05/18 06:05 Dose: Not Given Lorazepam (Ativan) 0.5 mg IVP Q12H PRN PRN Reason: Anxiety Scopolamine (Transderm-Scop) 1 patch TD Q3D [facility] Last Admin: 07/31/18 20:31 Dose: 1 patch - Labs Labs: 08/05/18 07:02 08/05/18 07:02 PT 15.6 SECONDS (9.7-12.2) H 08/03/18 08:50 INR 1.4 08/03/18 08:50 Attending/Attestation - Attestation I have personally seen and examined this patient.: Yes I have fully participated in the care of the patient.: Yes I have reviewed all pertinent clinical information, including history, physical exam and plan: Yes Notes (Text): 08/05/18 10:39 Medical attending: Patient was seen and examined by me. Agree with the above note by the resident We are pending OR for the PEG on Tuesday Gave K today Currently on IVF with glucose, the accuchecks have been ok Logan Tripp
[2018-08-05] MEDS: Dextrose 5%/0.9% NS 1,000 ML IV SCH ×4 (05:40→22:09)
[2018-08-05 07:16] LABS: BASO % 1.3 % (0.0-2.0); EOS # 0.2 K/uL (0.0-0.7); EOS % 5.4 % (0.0-4.0); HEMOGLOBIN 10.8 g/dL (12.0-18.0); LYMPH # 1.3 K/uL (1.0-4.3); LYMPH % 37.6 % (20.0-40.0); MEAN CELL VOLUME 81.2 fL (80.0-94.0); MEAN CORPUSCULAR HGB CONC 31.9 g/dL (33.0-37.0); MEAN PLATELET VOLUME 11.5 fL (7.2-11.7); MONO # 0.3 K/uL (0.0-0.8); MONO % 7.6 % (0.0-10.0); NEUT # 1.6 K/uL (1.8-7.0); NEUT % 48.1 % (50.0-75.0); NRBC % 0.1 % (0.0-2.0); RBC 4.17 Mil/uL (4.40-5.90); RED CELL DISTRIBUTION WIDTH 14.9 % (11.5-14.5); WHITE BLOOD COUNT 3.3 K/uL (4.8-10.8)
[2018-08-05] MEDS: levETIRAcetam 1,000 MG in Sodium Chloride 0.9% 100 ML IVPB SCH ×2 (07:49→19:35)
[2018-08-05 09:52] LABS: ALBUMIN 3.5 g/dL (3.5-5.0); ALT/SGPT 27 U/L (21-72); AST/SGOT 34 U/L (17-59); BLOOD UREA NITROGEN 3 mg/dL (9-20); CALCIUM 8.7 mg/dl (8.6-10.4); GFR NON-AFRICAN AMERICAN > 60
[2018-08-06] MEDS: (Novolin R) Insulin Human Regular 100 units/ml vial SC SCH ×4 (00:40→18:29)
[2018-08-06] MEDS: Albuterol-Ipratrop 3 mg / 0.5 (3 ml) UD INH SCH ×4 (02:10→20:02)
--- NOTE | 2018-08-06 02:35 | CP.PCM.PN ---
<Sinan Cook - Last Filed: 08/06/18 02:33> Subjective - Date & Time of Evaluation Date of Evaluation: 08/06/18 Time of Evaluation: 02:33 - Subjective Subjective: PGY-1 Medicine Progress note for Dr. Tripp's service S/E at bedside. Limited ROS 2/2 patient cx condition. Objective - Vital Signs/Intake and Output Vital Signs (last 24 hours): Temp Pulse Resp BP Pulse Ox 97.7 F 68 20 133/78 98 08/06/18 00:00 08/06/18 00:00 08/06/18 00:00 08/06/18 00:00 08/06/18 00:00 Intake and Output: 08/05/18 08/06/18 18:59 06:59 Intake Total 680 800 Balance 680 800 - Medications Medications: Current Medications Albuterol/Ipratropium (Duoneb 3 Mg/0.5 Mg (3 Ml) Ud) 3 ml INH RQ6 [facility] Last Admin: 08/06/18 02:10 Dose: 3 ml Dextrose (Dextrose 50% Inj) 0 ml IV STAT PRN; Protocol PRN Reason: Hypoglycemia Protocol Dextrose (Glutose 15) 0 gm PO ONCE PRN; Protocol PRN Reason: Hypoglycemia Protocol Glucagon (Glucagen Diagnostic Kit) 0 mg IM STAT PRN; Protocol PRN Reason: Hypoglycemia Protocol Heparin Sodium (Porcine) (Heparin) 5,000 units SC Q12H [facility] Last Admin: 08/05/18 19:35 Dose: 5,000 units Levetiracetam 1,000 mg/ Sodium (Chloride) 110 mls @ 420 mls/hr IVPB Q12H [facility] Last Admin: 08/05/18 19:35 Dose: 420 mls/hr Dextrose (Dextrose 5% In Water 1000 Ml) 1,000 mls @ 0 mls/hr IV .Q0M PRN; Protocol PRN Reason: Hypoglycemia Protocol Dextrose/Sodium Chloride (Dextrose 5%/0.9% Ns 1000 Ml) 1,000 mls @ 120 mls/hr IV .Q8H20M [facility] Last Admin: 08/05/18 22:09 Dose: Not Given Insulin Human Regular (Novolin R) 0 unit SC Q6H [facility]; Protocol Last Admin: 08/05/18 18:09 Dose: Not Given Lorazepam (Ativan) 0.5 mg IVP Q12H PRN PRN Reason: Anxiety Scopolamine (Transderm-Scop) 1 patch TD Q3D [facility] Last Admin: 07/31/18 20:31 Dose: 1 patch - Labs Labs: 08/05/18 07:02 08/05/18 07:02 PT 15.6 SECONDS (9.7-12.2) H 08/03/18 08:50 INR 1.4 08/03/18 08:50 - Additional Findings Additional findings: - Constitutional Appears: No Acute Distress, Chronically Ill - Head Exam Head Exam: ATRAUMATIC, NORMAL INSPECTION - ENT Exam ENT Exam: Mucous Membranes Moist - Respiratory Exam Respiratory Exam: Clear to Ausculation Bilateral, NORMAL BREATHING PATTERN. absent: Respiratory Distress - Cardiovascular Exam Cardiovascular Exam: Bradycardia, REGULAR RHYTHM, +S1, +S2 Additional comments: vascular access L chest - GI/Abdominal Exam Additional comments: abdominal binder, PEG removed - Extremities Exam Additional comments: significantly contracted - Neurological Exam Neurological Exam: Altered (aphasic), Awake. absent: Normal Gait (bed bound), Oriented x3 - Skin Skin Exam: Normal Color, Warm Assessment and Plan - Assessment and Plan (Free Text) Assessment: Patient is a 37 yo male from assisted brought in for PEG tube malfunction. At baseline, patient is bed bound, aphasic, and does not follow commands. GI replaced PEG on 08/01 but the site continued to leak. Unsuccessful endoscopic replacement 08/03 by GI. Surgery consulted- plan for open G tube insertion on 08/07. PEG tube dysfunction - New PEG placed on 08/01 but began to leak- removed 08/03 - Endoscopic PEG tube replacement unsuccessful 08/03 - Plan for Open G tube Monday 08/07 - Increase D5NS to 120 mL/hr - Patient unable to get CT to eval for fistula due to body contactures - GI consulted (Sudhakar) - Surgery consulted (Franklin) Hypokalemia - repleted with KCL 20meq IV x 2 - repeat cmp in am Anemia, stable- suspect dilutional - No signs of active bleeding - Monitor CBC Seizure disorder - Seizure precautions - Keppra IV 1000mg BID - Replete electrolytes PRN (hypokalemia, hypomagnesemia) Type 2 diabetes mellitus - Accuchecks Q6H - Hypoglycemic protocol - ISS Altered mental status at baseline - Patient from assisted - Unknown etiology, suspect TBI vs seizures - Patient is bedbound, contracted, nonexpressive - Turn every 2 hours - Daily skin checks - Aspiration and fall precautions - Duoneb Q6H - Scopalamine patch Q3D- held due to episode of hypotension - Ativan 0.5 mg IVP Q12H for agitation- patient has not required Ppx: VTE: SCDs, Heparin 5000 u SC Q12H GI: not indicated Code status: full code Case discussed with attending, Dr. Tripp. PGY-1 Freddiemarylin Cook <Logan Tripp H - Last Filed: 08/06/18 09:37> Objective - Vital Signs/Intake and Output Vital Signs (last 24 hours): Temp Pulse Resp BP Pulse Ox 98.2 F 65 20 121/80 100 08/06/18 07:00 08/06/18 07:00 08/06/18 07:00 08/06/18 07:00 08/06/18 07:00 Intake and Output: 08/06/18 08/06/18 06:59 18:59 Intake Total 800 960 Balance 800 960 - Medications Medications: Current Medications Albuterol/Ipratropium (Duoneb 3 Mg/0.5 Mg (3 Ml) Ud) 3 ml INH RQ6 [facility] Last Admin: 08/06/18 07:45 Dose: 3 ml Dextrose (Dextrose 50% Inj) 0 ml IV STAT PRN; Protocol PRN Reason: Hypoglycemia Protocol Dextrose (Glutose 15) 0 gm PO ONCE PRN; Protocol PRN Reason: Hypoglycemia Protocol Glucagon (Glucagen Diagnostic Kit) 0 mg IM STAT PRN; Protocol PRN Reason: Hypoglycemia Protocol Heparin Sodium (Porcine) (Heparin) 5,000 units SC Q12H [facility] Last Admin: 08/06/18 06:50 Dose: 5,000 units Levetiracetam 1,000 mg/ Sodium (Chloride) 110 mls @ 420 mls/hr IVPB Q12H [facility] Last Admin: 08/06/18 06:49 Dose: 420 mls/hr Dextrose (Dextrose 5% In Water 1000 Ml) 1,000 mls @ 0 mls/hr IV .Q0M PRN; Protocol PRN Reason: Hypoglycemia Protocol Dextrose/Sodium Chloride (Dextrose 5%/0.9% Ns 1000 Ml) 1,000 mls @ 120 mls/hr IV .Q8H20M [facility] Last Admin: 08/06/18 06:48 Dose: 120 mls/hr Potassium Chloride (Potassium Chloride 20 Meq/100 Ml) 20 meq in 100 mls @ 50 mls/hr IVPB ONCE ONE Stop: 08/06/18 10:57 Potassium Chloride (Potassium Chloride 20 Meq/100 Ml) 20 meq in 100 mls @ 50 mls/hr IVPB ONCE ONE Stop: 08/06/18 13:59 Potassium Chloride (Potassium Chloride 20 Meq/100 Ml) 20 meq in 100 mls @ 50 mls/hr IVPB ONCE ONE Stop: 08/06/18 15:59 Insulin Human Regular (Novolin R) 0 unit SC Q6H [facility]; Protocol Last Admin: 08/06/18 06:50 Dose: Not Given Lorazepam (Ativan) 0.5 mg IVP Q12H PRN PRN Reason: Anxiety Scopolamine (Transderm-Scop) 1 patch TD Q3D [facility] Last Admin: 07/31/18 20:31 Dose: 1 patch - Labs Labs: 08/06/18 07:19 08/06/18 07:19 PT 15.6 SECONDS (9.7-12.2) H 08/03/18 08:50 INR 1.4 08/03/18 08:50 Attending/Attestation - Attestation I have personally seen and examined this patient.: Yes I have fully participated in the care of the patient.: Yes I have reviewed all pertinent clinical information, including history, physical exam and plan: Yes Notes (Text): 08/06/18 09:35 Medical attending: Patient was seen and examined by me with the medical photographer As mentioned previously the patient is non verbal and non responsive The K was low today and we ordered KCL replacement of these Will decrease IVF today, check portable CXRAY There are plans for new PEG tommorow Logan Tripp
[2018-08-06] MEDS: Dextrose 5%/0.9% NS 1,000 ML IV SCH ×4 (06:48→23:06)
[2018-08-06] MEDS: levETIRAcetam 1,000 MG in Sodium Chloride 0.9% 100 ML IVPB SCH ×2 (06:49→19:33)
[2018-08-06 07:30] LABS: EOS # 0.2 K/uL (0.0-0.7); EOS % 5.7 % (0.0-4.0); HEMOGLOBIN 11.1 g/dL (12.0-18.0); LYMPH # 1.2 K/uL (1.0-4.3); LYMPH % 35.3 % (20.0-40.0); MEAN CELL VOLUME 80.7 fL (80.0-94.0); MEAN CORPUSCULAR HEMOGLOBIN 26.3 pg (27.0-31.0); MEAN CORPUSCULAR HGB CONC 32.6 g/dL (33.0-37.0); MEAN PLATELET VOLUME 11.6 fL (7.2-11.7); MONO # 0.3 K/uL (0.0-0.8); MONO % 7.5 % (0.0-10.0); NEUT # 1.8 K/uL (1.8-7.0); NEUT % 50.5 % (50.0-75.0); RBC 4.22 Mil/uL (4.40-5.90); RED CELL DISTRIBUTION WIDTH 15.2 % (11.5-14.5); WHITE BLOOD COUNT 3.5 K/uL (4.8-10.8)
[2018-08-06 07:46] LABS: ALBUMIN 3.7 g/dL (3.5-5.0); ALT/SGPT 32 U/L (21-72); AST/SGOT 25 U/L (17-59); BLOOD UREA NITROGEN 3 mg/dL (9-20); CALCIUM 8.9 mg/dl (8.6-10.4); GFR NON-AFRICAN AMERICAN > 60
--- NOTE | 2018-08-06 07:48 | CP.PCM.PN ---
Subjective - Date & Time of Evaluation Date of Evaluation: 08/06/18 Time of Evaluation: 07:00 - Subjective Subjective: GENERAL SURGERY PROGRESS NOTE FOR DR. NOEL Patient seen and examined at bedside. Pt non verbal at baseline. Objective - Vital Signs/Intake and Output Vital Signs (last 24 hours): Temp Pulse Resp BP Pulse Ox 97.7 F 68 20 133/78 98 08/06/18 00:00 08/06/18 00:00 08/06/18 00:00 08/06/18 00:00 08/06/18 00:00 Intake and Output: 08/06/18 08/06/18 06:59 18:59 Intake Total 800 960 Balance 800 960 - Medications Medications: Current Medications Albuterol/Ipratropium (Duoneb 3 Mg/0.5 Mg (3 Ml) Ud) 3 ml INH RQ6 [facility] Last Admin: 08/06/18 02:10 Dose: 3 ml Dextrose (Dextrose 50% Inj) 0 ml IV STAT PRN; Protocol PRN Reason: Hypoglycemia Protocol Dextrose (Glutose 15) 0 gm PO ONCE PRN; Protocol PRN Reason: Hypoglycemia Protocol Glucagon (Glucagen Diagnostic Kit) 0 mg IM STAT PRN; Protocol PRN Reason: Hypoglycemia Protocol Heparin Sodium (Porcine) (Heparin) 5,000 units SC Q12H [facility] Last Admin: 08/06/18 06:50 Dose: 5,000 units Levetiracetam 1,000 mg/ Sodium (Chloride) 110 mls @ 420 mls/hr IVPB Q12H [facility] Last Admin: 08/06/18 06:49 Dose: 420 mls/hr Dextrose (Dextrose 5% In Water 1000 Ml) 1,000 mls @ 0 mls/hr IV .Q0M PRN; Protocol PRN Reason: Hypoglycemia Protocol Dextrose/Sodium Chloride (Dextrose 5%/0.9% Ns 1000 Ml) 1,000 mls @ 120 mls/hr IV .Q8H20M [facility] Last Admin: 08/06/18 06:48 Dose: 120 mls/hr Insulin Human Regular (Novolin R) 0 unit SC Q6H [facility]; Protocol Last Admin: 08/06/18 06:50 Dose: Not Given Lorazepam (Ativan) 0.5 mg IVP Q12H PRN PRN Reason: Anxiety Scopolamine (Transderm-Scop) 1 patch TD Q3D [facility] Last Admin: 07/31/18 20:31 Dose: 1 patch - Labs Labs: 08/06/18 07:19 08/06/18 07:19 PT 15.6 SECONDS (9.7-12.2) H 08/03/18 08:50 INR 1.4 08/03/18 08:50 - Constitutional Appears: Non-toxic, No Acute Distress - Respiratory Exam Respiratory Exam: NORMAL BREATHING PATTERN. absent: Respiratory Distress - Cardiovascular Exam Cardiovascular Exam: +S1, +S2 - GI/Abdominal Exam GI & Abdominal Exam: Soft. absent: Tenderness Assessment and Plan - Assessment and Plan (Free Text) Assessment: 37yo M with PMHx of respiratory failure, seizure disorder, MS, DM, aphasia who had a PEG malfunction and possible enterocutaneous fistula. GI attempted endoscopic PEG replacement on 08/03 but was unsuccessful. - Plan for OR Monday 08/07 @11:00 - Needs medical clearance - NPO past midnight on Tuesday - Hold AM Heparin on Tuesday - Discussed plan with Dr. Franklin Funez PGY-4
--- NOTE | 2018-08-06 10:55 | RAD ---
Date of service: 08/06/2018 HISTORY: pre opt COMPARISON: Portable chest 04/18/2018. FINDINGS: LUNGS: Patient is rotated toward the right. MediPort stable in position. No acute infiltrate bilaterally. PLEURA: No significant pleural effusion identified, no pneumothorax apparent. CARDIOVASCULAR: No aortic atherosclerotic calcification present. Normal cardiac size. No pulmonary vascular congestion. OSSEOUS STRUCTURES: No significant abnormalities. VISUALIZED UPPER ABDOMEN: Normal. OTHER FINDINGS: None. IMPRESSION: No interval acute cardiopulmonary disease appreciated.
[2018-08-07] MEDS: Albuterol-Ipratrop 3 mg / 0.5 (3 ml) UD INH SCH ×4 (01:05→20:19)
[2018-08-07 07:39] LABS: BASO % 0.9 % (0.0-2.0); EOS # 0.2 K/uL (0.0-0.7); EOS % 7.3 % (0.0-4.0); HEMOGLOBIN 10.9 g/dL (12.0-18.0); LYMPH % 34.9 % (20.0-40.0); MEAN CELL VOLUME 81.1 fL (80.0-94.0); MEAN CORPUSCULAR HEMOGLOBIN 26.2 pg (27.0-31.0); MEAN CORPUSCULAR HGB CONC 32.3 g/dL (33.0-37.0); MEAN PLATELET VOLUME 12.2 fL (7.2-11.7); MONO # 0.3 K/uL (0.0-0.8); MONO % 8.6 % (0.0-10.0); NEUT # 1.4 K/uL (1.8-7.0); NEUT % 48.3 % (50.0-75.0); NRBC % 0.1 % (0.0-2.0); RBC 4.17 Mil/uL (4.40-5.90); RED CELL DISTRIBUTION WIDTH 14.9 % (11.5-14.5)
[2018-08-07 07:45] LABS: ALB/GLOB RATIO 1.1 (1.0-2.1); ALBUMIN 3.7 g/dL (3.5-5.0); ALT/SGPT 29 U/L (21-72); AST/SGOT 28 U/L (17-59); BLOOD UREA NITROGEN 2 mg/dL (9-20); CALCIUM 8.9 mg/dl (8.6-10.4); GFR NON-AFRICAN AMERICAN > 60
[2018-08-07 08:06] LABS: INR 1.4; PROTHROMBIN TIME 15.6 SECONDS (9.7-12.2)
[2018-08-07] MEDS: levETIRAcetam 1,000 MG in Sodium Chloride 0.9% 100 ML IVPB SCH ×2 (08:31→19:28)
--- NOTE | 2018-08-07 10:50 | CP.PCM.PN ---
Subjective - Date & Time of Evaluation Date of Evaluation: 08/07/18 Time of Evaluation: 10:49 - Subjective Subjective: PGY-1 Medicine Progress Note for Dr. Gutiérrez Patient seen and examined at bedside this AM. No acute overnight events reported. Nonverbal at baseline. 12 pt ROS unattainable due to clinical condition. Objective - Vital Signs/Intake and Output Vital Signs (last 24 hours): Temp Pulse Resp BP Pulse Ox 98.2 F 72 20 102/58 L 100 08/07/18 08:04 08/07/18 08:04 08/07/18 08:04 08/07/18 08:04 08/07/18 08:04 Intake and Output: 08/07/18 08/07/18 06:59 18:59 Intake Total 640 Balance 640 - Medications Medications: Current Medications Albuterol/Ipratropium (Duoneb 3 Mg/0.5 Mg (3 Ml) Ud) 3 ml INH RQ6 [facility] Last Admin: 08/07/18 08:29 Dose: 3 ml Dextrose (Dextrose 50% Inj) 0 ml IV STAT PRN; Protocol PRN Reason: Hypoglycemia Protocol Dextrose (Glutose 15) 0 gm PO ONCE PRN; Protocol PRN Reason: Hypoglycemia Protocol Glucagon (Glucagen Diagnostic Kit) 0 mg IM STAT PRN; Protocol PRN Reason: Hypoglycemia Protocol Heparin Sodium (Porcine) (Heparin) 5,000 units SC Q12H [facility] Last Admin: 08/06/18 19:32 Dose: 5,000 units Levetiracetam 1,000 mg/ Sodium (Chloride) 110 mls @ 420 mls/hr IVPB Q12H [facility] Last Admin: 08/07/18 08:31 Dose: 420 mls/hr Dextrose/Sodium Chloride (Dextrose 5%/0.9% Ns 1000 Ml) 1,000 mls @ 70 mls/hr IV .[id number] [facility] Last Admin: 08/06/18 23:06 Dose: Not Given Potassium Chloride (Potassium Chloride 20 Meq/100 Ml) 20 meq in 100 mls @ 50 mls/hr IVPB ONCE ONE Stop: 08/07/18 12:29 Insulin Human Regular (Novolin R) 0 unit SC Q6H [facility]; Protocol Last Admin: 08/06/18 18:29 Dose: Not Given Lorazepam (Ativan) 0.5 mg IVP Q12H PRN PRN Reason: Anxiety Scopolamine (Transderm-Scop) 1 patch TD Q3D [facility] Last Admin: 07/31/18 20:31 Dose: 1 patch - Labs Labs: 08/07/18 07:04 08/07/18 07:04 PT 15.6 SECONDS (9.7-12.2) H 08/07/18 07:04 INR 1.4 08/07/18 07:04 APTT 31 SECONDS (21-34) 08/07/18 07:04 - Constitutional Appears: No Acute Distress, Chronically Ill - Head Exam Head Exam: ATRAUMATIC, NORMAL INSPECTION, NORMOCEPHALIC - Eye Exam Eye Exam: Normal appearance, PERRL - ENT Exam ENT Exam: Mucous Membranes Moist, Normal Exam - Neck Exam Neck Exam: Normal Inspection - Respiratory Exam Respiratory Exam: Clear to Ausculation Bilateral, NORMAL BREATHING PATTERN. absent: Accessory Muscle Use, Rales, Rhonchi, Wheezes, Respiratory Distress, Stridor - Cardiovascular Exam Cardiovascular Exam: REGULAR RHYTHM, +S1, +S2 Additional comments: vascular access, L chest - GI/Abdominal Exam GI & Abdominal Exam: Soft. absent: Distended, Firm, Guarding, Rigid, Tender ness, Organomegaly Additional comments: PEG removed, dressing at site of PEG site clean/dry/intact - Extremities Exam Extremities Exam: Normal Capillary Refill Additional comments: significantly contracted upper and lower extremities b/l - Neurological Exam Neurological Exam: Altered, Awake Additional comments: aphasic, bed bound - Skin Skin Exam: Dry, Intact, Normal Color, Warm Assessment and Plan - Assessment and Plan (Free Text) Assessment: 37 yo M brought in from [facility] for PEG tube malfunction. At baseline, patient is bed bound, aphasic, and does not follow commands. GI replaced PEG on 08/01 but the site continued to leak. Unsuccessful endoscopic replacement 08/03 by GI. Surgery consulted- plan for open G tube insertion on 08/07. Plan: PEG tube dysfunction -New PEG placed on 08/01 but began to leak; removed 08/03 -GI on case () -Endoscopic PEG tube replacement unsuccessful (08/03) -General Surgery on case (Dr. Reid) -OR this AM (08/07) for open G tube insertion -D5NS 120 mL/hr -Patient unable to get CT to eval for fistula due to body contactures Hypokalemia -KCL 20meq IV x 2, continue to monitor Anemia -likely dilutionally, clinically stable -No signs of active bleeding -continue to monitor Seizure disorder -Seizure precautions -Keppra IV 1000mg BID -Replete electrolytes PRN (hypokalemia, hypomagnesemia) T2DM -ISS -accuchecks ACHS -hypoglycemic protocol Baseline AMS -Pt presenting from skilled nursing -Unknown etiology, suspect TBI vs seizures -Patient is bedbound, contracted, nonexpressive -reposition q2h -faily skin checks -aspiration and fall precautions -duoneb Q6H -Scopalamine patch Q3D- held due to episode of hypotension -Ativan 0.5 mg IVP Q12H for agitation- patient has not required Ppx, Diet, Disposition -DVT ppx: scds, heparin 5000u SC Q12H -GI ppx: not indicated -Diet: NPO -PT/OT on board -Code status: full code Case discussed with Dr. Brock Martinez DO, PGY-1
[2018-08-07] MEDS: (Novolin R) Insulin Human Regular 100 units/ml vial SC SCH ×2 (11:14→18:30)
[2018-08-07] MEDS ORDERED: Midazolam 2 MG/2 ML VIAL ONE (11:48)
[2018-08-07] MEDS ORDERED: Propofol 10 mg/ml Inj (20 ML) ONE (11:49)
[2018-08-07] MEDS ORDERED: Rocuronium 10 mg/ml (5 ml) ONE (11:52)
[2018-08-07] MEDS ORDERED: cefTRIAXone 1 gm 1 GM/100 ML BAG IVPB ONE (12:21)
[2018-08-07] MEDS ORDERED: Neostigmine 1:1000 (1 mg/ml) Inj ONE (13:09)
--- NOTE | 2018-08-07 13:35 | PCM.SURG1 ---
Surgeon's Initial Post Op Note - Surgeon's Notes Surgeon: Dr. Reid Disability Insurance Claim Examiner: Dr. 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 24fr handley Post-Operative Diagnosis: same Operation Performed: excision and ligation of gastrocutaneous fistula, open gastrostomy tube placement Specimen/Specimens Removed: gastrostomy stoma Estimated Blood Loss: EBL {In ML}: 10 Blood Products Given: N/A Drains Used: No Drains Post-Op Condition: Good Date of Surgery/Procedure: 08/07/18 Time of Surgery/Procedure: 13:36
[2018-08-07] MEDS ORDERED: HYDROmorphone 0.5 mg/0.5 ml ISec IVP PRN (13:37)
[2018-08-07] MEDS: Dextrose 5%/0.9% NS 1,000 ML IV SCH (19:28)
[2018-08-08] MEDS: (Novolin R) Insulin Human Regular 100 units/ml vial SC SCH ×3 (01:10→18:00)
[2018-08-08 01:28] VITALS: RESP 20
[2018-08-08] MEDS: Albuterol-Ipratrop 3 mg / 0.5 (3 ml) UD INH SCH ×4 (01:38→19:53)
[2018-08-08] MEDS: Dextrose 5%/0.9% NS 1,000 ML IV SCH ×2 (03:56→18:50)
[2018-08-08] MEDS: levETIRAcetam 1,000 MG in Sodium Chloride 0.9% 100 ML IVPB SCH ×2 (06:34→18:30)
[2018-08-08 07:32] LABS: BASO % 0.5 % (0.0-2.0); EOS % 0.6 % (0.0-4.0); HEMOGLOBIN 12.1 g/dL (12.0-18.0); LYMPH # 0.6 K/uL (1.0-4.3); LYMPH % 8.9 % (20.0-40.0); MEAN CELL VOLUME 80.9 fL (80.0-94.0); MEAN CORPUSCULAR HEMOGLOBIN 26.5 pg (27.0-31.0); MEAN CORPUSCULAR HGB CONC 32.7 g/dL (33.0-37.0); MEAN PLATELET VOLUME 10.7 fL (7.2-11.7); MONO # 0.6 K/uL (0.0-0.8); MONO % 8.6 % (0.0-10.0); NEUT # 5.9 K/uL (1.8-7.0); NEUT % 81.4 % (50.0-75.0); PLATELET COUNT 193 K/uL (130-400); RBC 4.57 Mil/uL (4.40-5.90); RED CELL DISTRIBUTION WIDTH 15.4 % (11.5-14.5)
--- NOTE | 2018-08-08 07:37 | CP.PCM.PN ---
Subjective - Date & Time of Evaluation Date of Evaluation: 08/08/18 Time of Evaluation: 07:37 - Subjective Subjective: PGY-1 Medicine Progress Note for Dr. Gutiérrez Patient seen and examined at bedside s/p open G-tube placement with no complications. 12 pt ROS unattainable due to patient's clinical status. To begin trickle feeds, per surgical recs, following tube study. Will monitor for 24 hrs prior to discharge. Objective - Vital Signs/Intake and Output Vital Signs (last 24 hours): Temp Pulse Resp BP Pulse Ox 98.4 F 82 20 120/74 100 08/08/18 00:00 08/08/18 00:00 08/08/18 00:00 08/08/18 00:00 08/08/18 00:00 Intake and Output: 08/08/18 08/08/18 06:59 18:59 Intake Total 560 Balance 560 - Medications Medications: Current Medications Albuterol/Ipratropium (Duoneb 3 Mg/0.5 Mg (3 Ml) Ud) 3 ml INH RQ6 [facility] Last Admin: 08/08/18 01:38 Dose: Not Given Dextrose (Dextrose 50% Inj) 0 ml IV STAT PRN; Protocol PRN Reason: Hypoglycemia Protocol Dextrose (Glutose 15) 0 gm PO ONCE PRN; Protocol PRN Reason: Hypoglycemia Protocol Glucagon (Glucagen Diagnostic Kit) 0 mg IM STAT PRN; Protocol PRN Reason: Hypoglycemia Protocol Heparin Sodium (Porcine) (Heparin) 5,000 units SC Q12H [facility] Last Admin: 08/06/18 19:32 Dose: 5,000 units Levetiracetam 1,000 mg/ Sodium (Chloride) 110 mls @ 420 mls/hr IVPB Q12H [facility] Last Admin: 08/08/18 06:34 Dose: 420 mls/hr Dextrose/Sodium Chloride (Dextrose 5%/0.9% Ns 1000 Ml) 1,000 mls @ 70 mls/hr IV .[id number] [facility] Last Admin: 08/08/18 03:56 Dose: 70 mls/hr Insulin Human Regular (Novolin R) 0 unit SC Q6H [facility]; Protocol Last Admin: 08/08/18 01:10 Dose: Not Given Lorazepam (Ativan) 0.5 mg IVP Q12H PRN PRN Reason: Anxiety Morphine Sulfate (Morphine) 2 mg IVP Q4 PRN PRN Reason: Pain, moderate (4-7) Morphine Sulfate (Morphine) 4 mg IVP Q4 PRN PRN Reason: Pain, severe (8-10) Scopolamine (Transderm-Scop) 1 patch TD Q3D [facility] Last Admin: 07/31/18 20:31 Dose: 1 patch - Labs Labs: 08/07/18 07:04 08/07/18 07:04 PT 15.6 SECONDS (9.7-12.2) H 08/07/18 07:04 INR 1.4 08/07/18 07:04 APTT 31 SECONDS (21-34) 08/07/18 07:04 - Constitutional Appears: Non-toxic, No Acute Distress, Chronically Ill - Head Exam Head Exam: ATRAUMATIC, NORMAL INSPECTION, NORMOCEPHALIC - Eye Exam Eye Exam: Normal appearance - ENT Exam ENT Exam: Mucous Membranes Moist, Normal Exam - Respiratory Exam Respiratory Exam: Clear to Ausculation Bilateral, NORMAL BREATHING PATTERN. absent: Accessory Muscle Use, Rales, Rhonchi, Wheezes, Respiratory Distress - Cardiovascular Exam Cardiovascular Exam: REGULAR RHYTHM, +S1, +S2 - GI/Abdominal Exam GI & Abdominal Exam: Soft, Tenderness (appropriate mild TTP at surgical site; dressing c/d/i), Normal Bowel Sounds. absent: Distended, Firm, Guarding, Rigid, Organomegaly, Rebound - Extremities Exam Extremities Exam: Normal Capillary Refill. absent: Calf Tenderness, Pedal Edema Additional comments: contracted upper and lower extremities b/l - Neurological Exam Neurological Exam: Awake Additional comments: aphasic, bed bound - Skin Skin Exam: Dry, Intact, Normal Color, Warm Assessment and Plan - Assessment and Plan (Free Text) Assessment: 37 yo M brought in from [facility] for PEG tube malfunction. At baseline, patient is bed bound, aphasic, and does not follow commands. GI replaced PEG on 08/01 but the site continued to leak. Unsuccessful endoscopic replacement 08/03 by GI. Surgery consulted- plan for open G tube insertion on 08/07. Plan: PEG tube dysfunction -New PEG placed on 08/01 but began to leak; removed 08/03 -GI on case () -Endoscopic PEG tube replacement unsuccessful (08/03) -General Surgery on case (Dr. Reid) -s/p successful open G tube insertion (08/07) -begin tube feeds @ 10cc/hr -monitor if pt tolerates for 24 hrs prior to d/c -D5NS 120 mL/hr Hypokalemia -KCL 20meq IV x 2, continue to monitor Anemia -likely dilutionally, clinically stable -No signs of active bleeding -continue to monitor Seizure disorder -Seizure precautions -Keppra IV 1000mg BID -Replete electrolytes PRN (hypokalemia, hypomagnesemia) T2DM -ISS -accuchecks ACHS -hypoglycemic protocol Baseline AMS -Pt presenting from long-term -Unknown etiology, suspect TBI vs seizures -Patient is bedbound, contracted, nonexpressive -reposition q2h -faily skin checks -aspiration and fall precautions -duoneb Q6H -Scopalamine patch Q3D- held due to episode of hypotension -Ativan 0.5 mg IVP Q12H for agitation- patient has not required Ppx, Diet, Disposition -DVT ppx: scds, heparin 5000u SC Q12H -GI ppx: not indicated -Diet: tube feeds @ 10cc/hr. -Dispo: Monitor feeds for 24 hrs prior to discharge. Likely d/c tomorrow. Case discussed with Dr. Brock Martinez DO, PGY-1
[2018-08-08 07:39] LABS: WHITE BLOOD COUNT 7.2 K/uL (4.8-10.8)
[2018-08-08 07:45] LABS: ALT/SGPT 29 U/L (21-72); AST/SGOT 27 U/L (17-59); BLOOD UREA NITROGEN 6 mg/dL (9-20); CALCIUM 9.1 mg/dl (8.6-10.4); GFR NON-AFRICAN AMERICAN > 60
[2018-08-08 08:40] LABS: LYMPHOCYTE 8 % (20-40); MONOCYTE 8 % (0-10); NEUTROPHIL 84 % (50-75); PLATELET ESTIMATE NORMAL (NORMAL); TOTAL CELLS COUNTED 100
[2018-08-08 08:41] LABS: LARGE PLATELETS PRESENT
[2018-08-08] MEDS ORDERED: Magnesium Sulfate 1 gm in D5W 1 GM/100 ML BAG IVPB SCH (09:45)
[2018-08-08] MEDS: Magnesium Sulfate 1 gm in D5W 1 GM/100 ML BAG IVPB SCH ×2 (09:55→11:17)
[2018-08-08] MEDS: D5 IV SCH ×3 (10:21→22:49)
[2018-08-08] MEDS: POTASSIUM CHL IV SCH ×3 (10:21→22:49)
[2018-08-08] MEDS: 1/2 NS IV SCH ×3 (10:21→22:49)
[2018-08-08] MEDS ORDERED: Iohexol 240 200 ML ONE (11:30)
--- NOTE | 2018-08-08 11:36 | CP.PCM.PN ---
Subjective - Date & Time of Evaluation Date of Evaluation: 08/08/18 Time of Evaluation: 11:33 - Subjective Subjective: General Surgery Dr. Reid Pt seen and examined @bedside. Pt is s/p open g-tube placement. Pt tolerated the procedure well w/ no complications. no acute issues overnight. Pt aphasic, not able to answer questions. g-tube clamped. awaiting tube study. Objective - Vital Signs/Intake and Output Vital Signs (last 24 hours): Temp Pulse Resp BP Pulse Ox 98.1 F 81 20 122/79 100 08/08/18 07:00 08/08/18 07:00 08/08/18 07:00 08/08/18 07:00 08/08/18 07:00 Intake and Output: 08/08/18 08/08/18 06:59 18:59 Intake Total 560 Balance 560 - Medications Medications: Current Medications Albuterol/Ipratropium (Duoneb 3 Mg/0.5 Mg (3 Ml) Ud) 3 ml INH RQ6 [facility] Last Admin: 08/08/18 07:15 Dose: 3 ml Dextrose (Dextrose 50% Inj) 0 ml IV STAT PRN; Protocol PRN Reason: Hypoglycemia Protocol Dextrose (Glutose 15) 0 gm PO ONCE PRN; Protocol PRN Reason: Hypoglycemia Protocol Glucagon (Glucagen Diagnostic Kit) 0 mg IM STAT PRN; Protocol PRN Reason: Hypoglycemia Protocol Heparin Sodium (Porcine) (Heparin) 5,000 units SC Q12H [facility] Last Admin: 08/06/18 19:32 Dose: 5,000 units Levetiracetam 1,000 mg/ Sodium (Chloride) 110 mls @ 420 mls/hr IVPB Q12H [facility] Last Admin: 08/08/18 06:34 Dose: 420 mls/hr Dextrose/Sodium Chloride (Dextrose 5%/0.9% Ns 1000 Ml) 1,000 mls @ 70 mls/hr IV .[id number] [facility] Last Admin: 08/08/18 03:56 Dose: 70 mls/hr Potassium Chloride/Dextrose/Sod Cl (Potassium Chl 40 Meq In D5-1/2ns) 1,000 mls @ 100 mls/hr IV .Q10H [facility] Last Admin: 08/08/18 10:21 Dose: 100 mls/hr Magnesium Sulfate/Dextrose (Magnesium Sulfate 1 Gm/100 Ml D5w) 1 gm in 100 mls @ 100 mls/hr IVPB Q1H [facility] Stop: 08/08/18 11:59 Last Admin: 08/08/18 11:17 Dose: 100 mls/hr Insulin Human Regular (Novolin R) 0 unit SC Q6H [facility]; Protocol Last Admin: 08/08/18 01:10 Dose: Not Given Iohexol (Omnipaque 240 (50 Ml)) 50 ml PO ONCE ONE Stop: 08/08/18 11:26 Lorazepam (Ativan) 0.5 mg IVP Q12H PRN PRN Reason: Anxiety Morphine Sulfate (Morphine) 2 mg IVP Q4 PRN PRN Reason: Pain, moderate (4-7) Morphine Sulfate (Morphine) 4 mg IVP Q4 PRN PRN Reason: Pain, severe (8-10) Scopolamine (Transderm-Scop) 1 patch TD Q3D [facility] Last Admin: 07/31/18 20:31 Dose: 1 patch - Labs Labs: 08/08/18 07:15 08/08/18 07:15 PT 15.6 SECONDS (9.7-12.2) H 08/07/18 07:04 INR 1.4 08/07/18 07:04 APTT 31 SECONDS (21-34) 08/07/18 07:04 - Constitutional Appears: Non-toxic, No Acute Distress, Chronically Ill - Head Exam Head Exam: NORMAL INSPECTION - Eye Exam Eye Exam: Normal appearance - ENT Exam ENT Exam: Mucous Membranes Moist - Respiratory Exam Respiratory Exam: NORMAL BREATHING PATTERN. absent: Accessory Muscle Use, Respiratory Distress - Cardiovascular Exam Cardiovascular Exam: REGULAR RHYTHM. absent: Bradycardia, Tachycardia - GI/Abdominal Exam GI & Abdominal Exam: Soft, Tenderness (approprite TTP, dressing stained through intact). absent: Distended, Firm, Guarding - Extremities Exam Extremities Exam: Normal Inspection - Neurological Exam Neurological Exam: Alert, Awake, Oriented x3 - Psychiatric Exam Psychiatric exam: Normal Affect, Normal Mood - Skin Skin Exam: Dry, Intact, Normal Color, Warm Assessment and Plan - Assessment and Plan (Free Text) Assessment: 38 y/o M w/ failure to thrive and malfunctioning PEG, POD#1 s/p open G-tube placement Plan: - f/u G-tube study - if negative for extravasation, start tube feeds @10cc/hr - cont pain management - cont medical management per PMD Pt discussed w/ Dr. Franklin Cardenas DO PGY3
[2018-08-08] MEDS: Iohexol 240 (50 ml) PO ONE ×2 (14:43→14:49)
--- NOTE | 2018-08-08 15:41 | RAD ---
Date of service: 08/08/2018 HISTORY: s/p open Gastrostomy tube. R/O LEAK COMPARISON: 06/23/2018 FINDINGS: BOWEL: Gastrostomy tube in stomach. Per technologist's note a surgical technology instructor has infused 30 mL of Omnipaque 240 at bedside.. No extravasation of contrast seen in or around the gastrostomy tube per these images no contrast the egress into the proximal small bowel either. BONES: There is a sclerotic and bony excrescence prominence over the lateral right iliac crest this appearance is similar to the prior study. OTHER FINDINGS: Skin oscar project horizontally over the left mid abdomen. IMPRESSION: No gastrostomy leak appreciated. No egress of contrast into the small bowel either. Apparent gastrostomy tube balloon segment inflated status noted. Correlate clinically
[2018-08-09] MEDS: Albuterol-Ipratrop 3 mg / 0.5 (3 ml) UD INH SCH ×3 (02:10→13:20)
[2018-08-09 07:12] LABS: BASO # 0.1 K/uL (0.0-0.2); BASO % 0.8 % (0.0-2.0); EOS # 0.2 K/uL (0.0-0.7); EOS % 2.4 % (0.0-4.0); HEMOGLOBIN 11.5 g/dL (12.0-18.0); LYMPH # 1.1 K/uL (1.0-4.3); LYMPH % 13.5 % (20.0-40.0); MEAN CELL VOLUME 81.4 fL (80.0-94.0); MEAN CORPUSCULAR HEMOGLOBIN 26.5 pg (27.0-31.0); MEAN CORPUSCULAR HGB CONC 32.6 g/dL (33.0-37.0); MEAN PLATELET VOLUME 11.4 fL (7.2-11.7); MONO # 0.6 K/uL (0.0-0.8); MONO % 6.8 % (0.0-10.0); NEUT # 6.3 K/uL (1.8-7.0); NEUT % 76.5 % (50.0-75.0); RBC 4.33 Mil/uL (4.40-5.90); WHITE BLOOD COUNT 8.2 K/uL (4.8-10.8)
[2018-08-09] MEDS: levETIRAcetam 1,000 MG in Sodium Chloride 0.9% 100 ML IVPB SCH (07:12)
--- NOTE | 2018-08-09 07:23 | CP.PCM.DIS ---
Provider - Provider Date of Admission: 08/02/18 14:05 Attending physician: Logan Tripp DO Consults: 07/31/18 19:08 Wound Care [Nursing Referral for Wound Care] Routine Comment: Physician Instructions: Reason For Exam: left sacral ulcer and heel wound 08/02/18 16:26 Case Management Referral Routine Comment: Physician Instructions: Reason For Exam: care home resident Reason for Referral: Discharge Planning Nursing Referral for Palliative Care Routine Comment: Physician Instructions: Reason For Exam: score of 8 08/03/18 14:56 General Surgery Consult Routine Comment: Consulting Provider: Kierra Reid Consulting Physician: Kierra Reid Reason for Consult: PEG tube insertion Time Spent in preparation of Discharge (in minutes): 40 Hospital Course - Lab Results Lab Results: Most Recent Lab Values WBC 7.2 K/uL (4.8-10.8) D 08/08/18 07:15 RBC 4.57 Mil/uL (4.40-5.90) 08/08/18 07:15 Hgb 12.1 g/dL (12.0-18.0) 08/08/18 07:15 Hct 37.0 % (35.0-51.0) 08/08/18 07:15 MCV 80.9 fL (80.0-94.0) 08/08/18 07:15 MCH 26.5 pg (27.0-31.0) L 08/08/18 07:15 MCHC 32.7 g/dL (33.0-37.0) L 08/08/18 07:15 RDW 15.4 % (11.5-14.5) H 08/08/18 07:15 Plt Count 193 K/uL (130-400) 08/08/18 07:15 MPV 10.7 fL (7.2-11.7) 08/08/18 07:15 Neut % (Auto) 81.4 % (50.0-75.0) H 08/08/18 07:15 Lymph % (Auto) 8.9 % (20.0-40.0) L 08/08/18 07:15 [place] % (Auto) 8.6 % (0.0-10.0) 08/08/18 07:15 Eos % (Auto) 0.6 % (0.0-4.0) 08/08/18 07:15 Baso % (Auto) 0.5 % (0.0-2.0) 08/08/18 07:15 Neut # (Auto) 5.9 K/uL (1.8-7.0) 08/08/18 07:15 Lymph # (Auto) 0.6 K/uL (1.0-4.3) L 08/08/18 07:15 [place] # (Auto) 0.6 K/uL (0.0-0.8) 08/08/18 07:15 Eos # (Auto) 0.0 K/uL (0.0-0.7) 08/08/18 07:15 Baso # (Auto) 0.0 K/uL (0.0-0.2) 08/08/18 07:15 Neutrophils % (Manual) 84 % (50-75) H 08/08/18 07:15 Lymphocytes % (Manual) 8 % (20-40) L 08/08/18 07:15 Monocytes % (Manual) 8 % (0-10) 08/08/18 07:15 Platelet Estimate Normal (NORMAL) 08/08/18 07:15 Large Platelets Present 08/08/18 07:15 RBC Morphology Normal 08/08/18 07:15 PT 15.6 SECONDS (9.7-12.2) H 08/07/18 07:04 INR 1.4 08/07/18 07:04 APTT 31 SECONDS (21-34) 08/07/18 07:04 Sodium 140 mmol/L (132-148) 08/08/18 07:15 Potassium 3.2 mmol/L (3.6-5.2) L 08/08/18 07:15 Chloride 106 mmol/L (98-107) 08/08/18 07:15 Carbon Dioxide 29 mmol/L (22-30) 08/08/18 07:15 Anion Gap 8 (10-20) L 08/08/18 07:15 BUN 6 mg/dL (9-20) L 08/08/18 07:15 Creatinine 0.5 mg/dL (0.8-1.5) L 08/08/18 07:15 Est GFR ( Amer) > 60 08/08/18 07:15 Est GFR (Non-Af Amer) > 60 08/08/18 07:15 POC Glucose (mg/dL) 123 mg/dL (65-110) H 08/09/18 06:24 Random Glucose 118 mg/dL (75-110) H D 08/08/18 07:15 Calcium 9.1 mg/dl (8.6-10.4) 08/08/18 07:15 Phosphorus 2.2 mg/dL (2.5-4.5) L 08/08/18 07:15 Magnesium 1.6 mg/dL (1.6-2.3) 08/08/18 07:15 Total Bilirubin 0.5 mg/dL (0.2-1.3) 08/08/18 07:15 AST 27 U/L (17-59) 08/08/18 07:15 ALT 29 U/L (21-72) 08/08/18 07:15 Alkaline Phosphatase 132 U/L (38-126) H 08/08/18 07:15 Total Protein 7.8 g/dL (6.3-8.3) 08/08/18 07:15 Albumin 4.0 g/dL (3.5-5.0) 08/08/18 07:15 Globulin 3.8 gm/dL (2.2-3.9) 08/08/18 07:15 Albumin/Globulin Ratio 1.0 (1.0-2.1) 08/08/18 07:15 - Hospital Course Hospital Course: HPI: Patient is a 37 year old male with past medical history of respiratory failure, seizure disorder, multiple sclerosis, type 2 diabetes mellitus, aphasia, dysphagia, obstructive uropothy who is aphasic, brought in from [facility] to ED for PEG tube leaking. Patient most recently had his PEG replaced on 06/23/18. No other recent changes noted per [facility]. 12 point review of systems unobtainable due to patient's clinical condition. During course of admission: A new PEG tube was inserted on 08/01 which subsequently began to leak and was removed on 08/03. GI (Dr. De La Fuente) was consulted for endoscopic PEG tube replacement, which was unsuccessfully attempted (08/03). General Surgery (Dr. Reid) was consulted and patient underwent successful open G tube insertion (08/07). Tube feeds were restarted at a slow rate, 10 cc/hr, and patient was monitored for 24 hours with no complications noted. Seizure disorder medications were restarted during hospital course, blood glucose level was monitored and wound care for multiple pressure ulcers was performed. Patient is afebrile with no leukocytosis noted or hemodynamic instability. He is tolerating tube feeds adequately and is medically stable for discharge to [facility], per Dr. Gutiérrez. Patient to resume all medications as currently prescribed. The following wound care assessment has also been provided. Wound care assessment: Assessed right hip, found stage 3 pressure ulcer, continuing with pink base,no drainage, and no odor. Assessed Right buttocks; found stage 4 pressure ulcer; pink base, no drainage and no odor. Assessed left buttocks; found unstagable pressure ulcer, with moist yellow fibrous and necrotic base, no drainage and mild odor. For all 3 ulcers, recommending to start medihoney, and covering with foam dressing that can stay in place for 2-3 days. Assessed right heel; continues with stage 4 pressure ulcer with exposed beefy red muscle, small amount of serosanguinous drainage with odor. Recommending to continue medihoney then covering with thick bulky dressing to be changed every day. Must keep offloading boots on at all times to optimize offloading to help with the healing process. Patient continues to be at very high risk for skin breakdown. Recommending to reposition frequently using foam wedge to optimize offloading, which will help with the healing process. - Date & Time of H&P Date of H&P: 08/09/18 Time of H&P: 11:21 Discharge Exam - Head Exam Head Exam: ATRAUMATIC, NORMAL INSPECTION, NORMOCEPHALIC - Eye Exam Eye Exam: Normal appearance - ENT Exam ENT Exam: Mucous Membranes Moist, Normal Exam - Respiratory Exam Respiratory Exam: Clear to PA & Lateral, NORMAL BREATHING PATTERN, UNREMARKABLE. absent: Accessory Muscle Use, Rales, Rhonchi, Wheezes, Respiratory Distress, Stridor - Cardiovascular Exam Cardiovascular Exam: REGULAR RHYTHM, +S1, +S2 - GI/Abdominal Exam GI & Abdominal Exam: Normal Bowel Sounds, Soft, Tenderness (appropriate mild TTP at surgical site, dressing c/d/i), Unremarkable. absent: Distended, Firm, Guarding, Rebound, Rigid - Extremities Exam Extremities exam: normal capillary refill, pedal pulses present Additional comments: contracted b/l UE and LE - Neurological Exam Additional comments: Awake, aphasic, bed bound - Psychiatric Exam Psychiatric exam: Normal Affect, Normal Mood - Skin Skin Exam: Dry, Normal Color, Warm Additional comments: Stage 3 pressure ulcer, R hip, continuing with pink base,no drainage, and no odor Stage 4 pressure ulcer, R buttocks, pink base, no drainage and no odor unstageable pressure ulcer, L buttocks, moist yellow fibrous and necrotic base, no drainage and mild odor Discharge Plan - Follow Up Plan Condition: GUARDED Disposition: NURSING FACILITY MEDICAID CERT Instructions: How to Care for Your PEG Tube Additional Instructions: 1. Patient is stable for discharge to [facility] as per Dr. Gutiérrez 2. No medication adjustments were made during this admission. Patient can continue all previous medications with no changes. 3. PEG tube was replaced and can be restarted. Start tube feedings with rate of 20 per hour and then increase to goal rate of 60cc/hr with 2 hour nursing shift changes. 4. If symptoms worsen or recur please bring patient back to hospital. Referrals: Ayo De La Fuente MD [Staff Provider] - Terri Borjas MD [Staff Provider] -
[2018-08-09 07:53] LABS: ALB/GLOB RATIO 1.1 (1.0-2.1); ALBUMIN 3.9 g/dL (3.5-5.0); ALT/SGPT 24 U/L (21-72); AST/SGOT 24 U/L (17-59); BLOOD UREA NITROGEN 7 mg/dL (9-20); CALCIUM 8.8 mg/dl (8.6-10.4); GFR NON-AFRICAN AMERICAN > 60
[2018-08-09] MEDS: Dextrose 5%/0.9% NS 1,000 ML IV SCH ×2 (10:09→10:17)
--- NOTE | 2018-08-09 11:52 | CP.PCM.PN ---
Subjective - Date & Time of Evaluation Date of Evaluation: 08/09/18 Time of Evaluation: 11:49 - Subjective Subjective: General Surgery Dr. Reid Pt seen and examined @bedside. No acute events overnight. pt aphasic, ROS unobtainable. tolerating trickle feeds. Objective - Vital Signs/Intake and Output Vital Signs (last 24 hours): Temp Pulse Resp BP Pulse Ox 99.3 F 105 H 20 118/75 100 08/09/18 07:58 08/09/18 07:58 08/09/18 07:58 08/09/18 07:58 08/09/18 07:58 Intake and Output: 08/09/18 08/09/18 06:59 18:59 Intake Total 860 940 Balance 860 940 - Medications Medications: Current Medications Albuterol/Ipratropium (Duoneb 3 Mg/0.5 Mg (3 Ml) Ud) 3 ml INH RQ6 [facility] Last Admin: 08/09/18 07:35 Dose: 3 ml Dextrose (Dextrose 50% Inj) 0 ml IV STAT PRN; Protocol PRN Reason: Hypoglycemia Protocol Dextrose (Glutose 15) 0 gm PO ONCE PRN; Protocol PRN Reason: Hypoglycemia Protocol Glucagon (Glucagen Diagnostic Kit) 0 mg IM STAT PRN; Protocol PRN Reason: Hypoglycemia Protocol Heparin Sodium (Porcine) (Heparin) 5,000 units SC Q12H [facility] Last Admin: 08/06/18 19:32 Dose: 5,000 units Levetiracetam 1,000 mg/ Sodium (Chloride) 110 mls @ 420 mls/hr IVPB Q12H [facility] Last Admin: 08/09/18 07:12 Dose: 420 mls/hr Potassium Chloride/Dextrose/Sod Cl (Potassium Chl 40 Meq In D5-1/2ns) 1,000 mls @ 100 mls/hr IV .Q10H [facility] Last Admin: 08/08/18 22:49 Dose: 100 mls/hr Insulin Human Regular (Novolin R) 0 unit SC Q6H [facility]; Protocol Last Admin: 08/08/18 18:00 Dose: Not Given Lorazepam (Ativan) 0.5 mg IVP Q12H PRN PRN Reason: Anxiety Morphine Sulfate (Morphine) 2 mg IVP Q4 PRN PRN Reason: Pain, moderate (4-7) Morphine Sulfate (Morphine) 4 mg IVP Q4 PRN PRN Reason: Pain, severe (8-10) Scopolamine (Transderm-Scop) 1 patch TD Q3D [facility] Last Admin: 07/31/18 20:31 Dose: 1 patch - Labs Labs: 08/09/18 07:02 08/09/18 07:02 PT 15.6 SECONDS (9.7-12.2) H 08/07/18 07:04 INR 1.4 08/07/18 07:04 APTT 31 SECONDS (21-34) 08/07/18 07:04 - Constitutional Appears: Non-toxic, No Acute Distress - Head Exam Head Exam: NORMAL INSPECTION - Eye Exam Eye Exam: Normal appearance - ENT Exam ENT Exam: Mucous Membranes Moist - Respiratory Exam Respiratory Exam: NORMAL BREATHING PATTERN. absent: Accessory Muscle Use, Respiratory Distress - GI/Abdominal Exam GI & Abdominal Exam: Soft. absent: Distended Additional comments: dressing saturated --> changed gastrostomy tube in place - Extremities Exam Extremities Exam: Normal Inspection (contracted) - Neurological Exam Neurological Exam: Awake - Psychiatric Exam Psychiatric exam: Flat Affect - Skin Skin Exam: Dry, Intact, Warm Assessment and Plan - Assessment and Plan (Free Text) Assessment: 38 y/o m w/ malfunctioning PEG and failure to thrive POD#2 s/p open gastrostomy tube placement Plan: - advance tube feeds as tolerated - oscar to be removed 08/17/18 (can be done at alf) - pt does not need to follow up in office - change abd dressing as needed - cont medical management Pt discussed w/ Dr. Franklin Cardenas DO PGY3
[2018-08-09 16:52] VITALS: BP 115/70; PULSE 107; TEMP 98.8; O2SAT 99
--- NOTE | 2018-08-11 09:20 | OP ---
PROCEDURE DATE: 08/07/2018 PREOPERATIVE DIAGNOSES: Percutaneous endoscopic gastrostomy malfunction, gastrocutaneous fistula, and multiple sclerosis with dysphagia. POSTOPERATIVE DIAGNOSES: Percutaneous endoscopic gastrostomy malfunction, gastrocutaneous fistula, and multiple sclerosis with dysphagia. PROCEDURE: Revision of gastrostomy with placement of open gastrostomy. SURGEON: Kierra Reid MD. DANCE HISTORIAN: Dali Cardenas DO. TYPE OF ANESTHESIA: General LMA. ANESTHESIA ADMINISTERED BY: Andrea Zarco CRNA DESCRIPTION OF PROCEDURE: With the patient in the supine position under adequate general anesthesia, the abdomen was prepped and draped in the usual sterile manner. The patient was noted to have a gastrostomy stoma in the left upper quadrant with an adjacent area of drainage representing a gastrocutaneous fistula. The skin surrounding the gastrostomy opening and the fistula was elliptically incised and dissected down through the subcutaneous tissue with the incision being continued medially and laterally to allow exposure on either side. The stoma was dissected down to the fascia and freed up circumferentially. The fascia was then opened slightly medially and laterally to allow better visualization of the stomach. The stomach on the superior aspect especially was noted to be adherent to the abdominal wall and the skin along with the previous stoma and attached fistula was then divided sharply. When free, circumferential gastric opening was identified. A 30-[place] Iniguez catheter was positioned into the stomach and inflated and the fascia medially and laterally was closed with [id number] sutures of 0 Vicryl. The skin was loosely closed medially and laterally to the stomach with oscar and the tube was fixed to the skin with tape. Dry sterile dressing was applied. The patient tolerated the procedure well and transferred to recovery room in stable condition. Estimated blood loss for the procedure was 10 mL. Kierra Reid MD
== END 2018-08-09 18:24 | DRG 326 ==
LOC: C.ER 14:36 → C.9E 17:46 → C.3T 18:26 → OBSVTOIN 08-02 14:05
PROVIDERS: ADMIT Hospitalist; ATTEND Hospitalist
PROC: 0D20XUZ Change Feeding Device in Upper Intestinal Tract, External Approach (ICD-10-PCS; 2018-08-01)
PROC: 3E0G76Z Introduction of Nutritional Substance into Upper GI, Via Natural or Artificial Opening (ICD-10-PCS; 2018-08-01)
PROC: 0DJ08ZZ Inspection of Upper Intestinal Tract, Via Natural or Artificial Opening Endoscopic (ICD-10-PCS; principal; 2018-08-03 14:30)
PROC: 0DH60UZ Insertion of Feeding Device into Stomach, Open Approach (ICD-10-PCS; 2018-08-07)
PROC: 0DW60UZ Revision of Feeding Device in Stomach, Open Approach (ICD-10-PCS; 2018-08-07)
DX: K94.23 Gastrostomy malfunction (principal); K31.6 Fistula of stomach and duodenum; G35 Multiple sclerosis; E87.6 Hypokalemia; L89.213 Pressure ulcer of right hip, stage 3; L89.614 Pressure ulcer of right heel, stage 4; R47.01 Aphasia; D64.9 Anemia, unspecified; E11.9 Type 2 diabetes mellitus without complications; E83.42 Hypomagnesemia; F39 Unspecified mood [affective] disorder; F32.9 Major depressive disorder, single episode, unspecified; G40.909 Epilepsy, unspecified, not intractable, without status epilepticus; K21.9 Gastro-esophageal reflux disease without esophagitis; L89.329 Pressure ulcer of left buttock, unspecified stage; R13.10 Dysphagia, unspecified; R62.7 Adult failure to thrive; Z74.01 Bed confinement status; Z79.01 Long term (current) use of anticoagulants